=== PATIENT | male | born 1935 | race Caucasian/White ===

== ENCOUNTER 2017-05-04 17:10 | Observation (INO) | payer MEDICAID, MEDICARE ==
--- NOTE | 2017-05-04 18:13 | EDM.PDOC ---
ED HPI GENERAL MEDICAL PROBLEM - General Chief Complaint: General Stated Complaint: WEAK Time Seen by Provider: 05/04/17 18:12 Source of Information: Reports: Patient History Limitations: Reports: No Limitations - History of Present Illness INITIAL COMMENTS - FREE TEXT/NARRATIVE: This gentleman comes in complaining of weakness. He said when he sits in a chair he can't get out of the chair. It's been going on for 2 or 3 days. He denies any nausea vomiting or diarrhea. There is no fever. No chest pain shortness of breath or cough. He said he thinks he drinks enough liquids. 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 He started atorvastatin at the same time. His doctors at the [facility] in [place]. - Related Data Allergies Allergy/AdvReac Type Severity Reaction Status Date / Time codeine Allergy Anxiety Verified 05/04/17 17:39 Home Meds: Home Meds Aspirin 325 mg PO DAILY 05/04/17 [History] Carvedilol [Coreg] 6.25 mg PO BID 05/04/17 [History] Cholecalciferol (Vitamin D3) [Vitamin D3] 1,000 units PO DAILY 05/04/17 [History ] Docusate Sodium 200 mg PO BID 05/04/17 [History] Lisinopril 10 mg PO DAILY 05/04/17 [History] Multivitamin [Multivitamins] 1 mg PO DAILY 05/04/17 [History] [place]-3/DHA/Epa/Fish Oil [[place] 3 500 Softgel] 1,000 mg PO BID 05/04/17 [History ] Pramoxine HCl/Menthol [[place] Med Anti-Itch] 2 gm TOP ASDIRECTED PRN [History] Triamcinolone Acetonide [Triamcinolone Acetonide 0.1% Crm] 15 gm TOP TID [History] atorvaSTATin Calcium [Atorvastatin Calcium] 5 mg PO DAILY 05/04/17 [History] diphenhydrAMINE HCl [Benadryl] 25 - 50 mg PO BEDTIME 05/04/17 [History] glipiZIDE [Glucotrol] 5 mg PO BID 05/04/17 [History] metFORMIN [Glucophage] 1,000 mg PO BID 05/04/17 [History] predniSONE [Prednisone] 20 mg PO DAILY 05/04/17 [History] Past Medical History HEENT History: Reports: Hard of Hearing, Impaired Vision Musculoskeletal History: Reports: Back Pain, Chronic Endocrine/Metabolic History: Reports: Diabetes, Type II Dermatologic History: Reports: Other (See Below) Other Dermatologic History: bullosis - Infectious Disease History Infectious Disease History: Reports: Chicken Pox - Past Surgical History GI Surgical History: Reports: Cholecystectomy Musculoskeletal Surgical History: Reports: Knee Replacement, Shoulder Surgery Social & Family History - Tobacco Use Smoking Status *Q: Never Smoker ED ROS GENERAL - Review of Systems Review Of Systems: ROS reveals no pertinent complaints other than HPI. ED EXAM, GENERAL - Physical Exam Exam: See Below Exam Limited By: No Limitations General Appearance: Alert, WD/WN, No Apparent Distress Eye Exam: Bilateral Eye: Normal Inspection Ears: Normal External Exam Nose: Normal Inspection Throat/Mouth: Other (Mucous membranes slightly dry) Head: Atraumatic Neck: Normal Inspection Respiratory/Chest: Lungs Clear Cardiovascular: Regular Rate, Rhythm, No Murmur GI/Abdominal: Soft, Non-Tender Extremities: Normal Inspection Neurological: Alert, Oriented, CN II-XII Intact, No Motor/Sensory Deficits Psychiatric: Normal Affect Skin Exam: Other (There there are a number of ruptured bullae to the back and upper extremities. Nothing looks infected) Course - Vital Signs Last Recorded V/S: Last Vital Signs Temp 36.3 C 05/04/17 17:37 Pulse 70 05/04/17 20:02 Resp 16 05/04/17 20:02 BP 134/69 05/04/17 20:02 Pulse Ox 98 05/04/17 20:02 - Orders/Labs/Meds Orders: Active Orders 24 hr Category Date Time Status EKG Documentation Completion [RC] ASDIRECTED Care 05/04/17 18:27 Active Chest 2V [CR] Urgent Exams 05/04/17 18:25 Taken Sodium Chloride 0.9% [Normal Saline] 1,000 ml Med 05/04/17 18:30 Active IV ASDIRECTED Sodium Chloride 0.9% [Saline Flush] Med 05/04/17 18:26 Active 10 ml FLUSH ASDIRECTED PRN Saline Lock Insert [OM.PC] Urgent Oth 05/04/17 18:25 Ordered EKG 12 Lead [EK] Urgent Ther 05/04/17 18:25 Ordered Medication Orders Sodium Chloride (Normal Saline) 1,000 mls @ 999 mls/hr IV ASDIRECTED MADYSON Last Admin: 05/04/17 18:37 Dose: 999 mls/hr Sodium Chloride (Saline Flush) 10 ml FLUSH ASDIRECTED PRN PRN Reason: Keep Vein Open Last Admin: 05/04/17 18:37 Dose: 10 ml Labs: Laboratory Tests 05/04/17 05/04/17 05/04/17 Range/Units 18:38 18:38 20:02 WBC 7.4 (4.5-11.0) K/uL RBC 4.84 (4.30-5.90) M/uL Hgb 14.2 (12.0-15.0) g/dL Hct 43.1 (40.0-54.0) % MCV 89 (80-98) fL MCH 29 (27-31) pg MCHC 33 (32-36) % Plt Count 325 (150-400) K/uL Neut % (Auto) 68 H (36-66) % Lymph % (Auto) 15 L (24-44) % [place] % (Auto) 16 H (2-6) % Eos % (Auto) 1 L (2-4) % Baso % (Auto) 0 (0-1) % Sodium 135 L (140-148) mmol/L Potassium 7.5 H* (3.6-5.2) mmol/L Chloride 106 (100-108) mmol/L Carbon Dioxide 24 (21-32) mmol/L Anion Gap 12.5 (5.0-14.0) mmol/L BUN 40 H (7-18) mg/dL Creatinine 1.7 H (0.8-1.3) mg/dL Est Cr Clr Drug Dosing 37.21 mL/min Estimated GFR (MDRD) 39 L (>60) Glucose 168 H (74-106) mg/dL Calcium 8.9 (8.5-10.1) mg/dL Total Bilirubin 0.2 (0.2-1.0) mg/dL AST 22 (15-37) U/L ALT 34 (12-78) U/L Alkaline Phosphatase 57 (46-116) U/L Troponin I < 0.017 (0.000-0.056) ng/mL Total Protein 7.2 (6.4-8.2) g/dL Albumin 3.4 (3.4-5.0) g/dL Globulin 3.8 H (2.3-3.5) g/dL Albumin/Globulin Ratio 0.9 L (1.2-2.2) Urine Color Yellow Urine Appearance Clear Urine pH 6.0 (4.5-8.0) Ur Specific [place] 1.015 (1.008-1.030) Urine Protein Negative (NEGATIVE) mg/dL Urine Glucose (UA) 100 H (NEGATIVE) mg/dL Urine Ketones Negative (NEGATIVE) mg/dL Urine Occult Blood Large (NEGATIVE) Urine Nitrite Negative (NEGAITVE) Urine Bilirubin Negative (NEGATIVE) Urine Urobilinogen Normal (NORMAL) mg/dL Ur Leukocyte Esterase Negative (NEGATIVE) Urine RBC 50-75 H (0-5) Urine WBC 0-5 (0-5) Ur Epithelial Cells Few Amorphous Sediment Not seen Urine Bacteria Few Urine Mucus Not seen Meds: Medications Generic Name Dose Route Start Last Admin Trade Name Freq PRN Reason Stop Dose Admin Sodium Chloride 1,000 mls @ 999 mls/hr 05/04/17 18:30 05/04/17 18:37 Normal Saline IV 999 mls/hr ASDIRECTED MADYSON Administration Sodium Chloride 10 ml 05/04/17 18:26 05/04/17 18:37 Saline Flush FLUSH 10 ml ASDIRECTED PRN Administration Keep Vein Open - Radiology Interpretation Free Text/Narrative:: Chest x-ray showed normal heart size normal lung markings. - Re-Assessments/Exams Free Text/Narrative Re-Assessment/Exam: 05/04/17 20:36 EKG shows normal sinus rhythm at 68 bpm normal QRS is normal ST and T waves. No QRS widening 05/04/17 20:38 treatment course an IV was established he was given a bolus of 1 L IV normal saline. Labs returned showing a elevated BUN/creatinine ratio and a potassium of 7.5. Dr. Vargas was consult and will be admitting him for further treatment. Departure - Departure Time of Disposition: 20:39 Disposition: Admitted As Inpatient 64 Clinical Impression: Hyperkalemia, Dehydration - Discharge Information Forms: ED Department Discharge - My Orders Last 24 Hours: My Active Orders 05/04/17 18:25 Chest 2V [CR] Urgent Saline Lock Insert [OM.PC] Urgent EKG 12 Lead [EK] Urgent 05/04/17 18:26 Sodium Chloride 0.9% [Saline Flush] 10 ml FLUSH ASDIRECTED PRN 05/04/17 18:27 EKG Documentation Completion [RC] ASDIRECTED 05/04/17 18:30 Sodium Chloride 0.9% [Normal Saline] 1,000 ml IV ASDIRECTED - Assessment/Plan Last 24 Hours: My Active Orders 05/04/17 18:25 Chest 2V [CR] Urgent Saline Lock Insert [OM.PC] Urgent EKG 12 Lead [EK] Urgent 05/04/17 18:26 Sodium Chloride 0.9% [Saline Flush] 10 ml FLUSH ASDIRECTED PRN 05/04/17 18:27 EKG Documentation Completion [RC] ASDIRECTED 05/04/17 18:30 Sodium Chloride 0.9% [Normal Saline] 1,000 ml IV ASDIRECTED
[2017-05-04] MEDS ORDERED: Sodium Chloride 0.9% 10 ML Syringe FLUSH PRN (18:26)
[2017-05-04] MEDS ORDERED: Sodium Chloride 0.9% 1,000 ML IV SCH (18:30)
--- NOTE | 2017-05-04 21:10 | PCM.HP ---
H&P History of Present Illness - General Date of Service: 05/04/17 Admit Problem/Dx: Admission Diagnosis/Problem Admission Diagnosis/Problem Hyperkalemia Source of Information: Patient, Provider History Limitations: Reports: No Limitations - History of Present Illness Initial Comments - Free Text/Narative: Catracho presents to the emergency room today with weakness. He describes this as the inability to get up out of the chair without great difficulty. He felt weak and a little tired yesterday but felt fairly well this morning before weakness progressed slowly throughout the day. He reports that he finished a ten-day course of antibiotics with trimethoprim/sulfamethoxazole yesterday. He was on this for a presumed skin infection. He has not had any fevers. He does not report cough, shortness of breath or diarrhea. His appetite has been normal. He has not been around anybody who is been sick. The bullous lesions on his skin have been improving with his prednisone therapy. Workup in the emergency room today revealed hyperkalemia with a potassium of 7.5 and a creatinine of 1.7, up from his baseline of 1.2. He'll be admitted for additional hydration and repeat laboratory testing. - Related Data Allergies/Adverse Reactions: Allergies Allergy/AdvReac Type Severity Reaction Status Date / Time codeine Allergy Anxiety Verified 05/04/17 17:39 Home Medications: Home Meds Aspirin 325 mg PO DAILY 05/04/17 [History] Carvedilol [Coreg] 6.25 mg PO BID 05/04/17 [History] Cholecalciferol (Vitamin D3) [Vitamin D3] 1,000 units PO DAILY 05/04/17 [History ] Docusate Sodium 200 mg PO BID 05/04/17 [History] Lisinopril 10 mg PO DAILY 05/04/17 [History] Multivitamin [Multivitamins] 1 mg PO DAILY 05/04/17 [History] [place]-3/DHA/Epa/Fish Oil [[place] 3 500 Softgel] 1,000 mg PO BID 05/04/17 [History ] Pramoxine HCl/Menthol [[place] Med Anti-Itch] 2 gm TOP ASDIRECTED PRN [History] Triamcinolone Acetonide [Triamcinolone Acetonide 0.1% Crm] 15 gm TOP TID [History] atorvaSTATin Calcium [Atorvastatin Calcium] 5 mg PO DAILY 05/04/17 [History] diphenhydrAMINE HCl [Benadryl] 25 - 50 mg PO BEDTIME 05/04/17 [History] glipiZIDE [Glucotrol] 5 mg PO BID 05/04/17 [History] metFORMIN [Glucophage] 1,000 mg PO BID 05/04/17 [History] predniSONE [Prednisone] 20 mg PO DAILY 05/04/17 [History] Past Medical History HEENT History: Reports: Hard of Hearing, Impaired Vision Musculoskeletal History: Reports: Back Pain, Chronic Endocrine/Metabolic History: Reports: Diabetes, Type II Dermatologic History: Reports: Other (See Below) Other Dermatologic History: bullosis - Infectious Disease History Infectious Disease History: Reports: Chicken Pox - Past Surgical History GI Surgical History: Reports: Cholecystectomy Musculoskeletal Surgical History: Reports: Knee Replacement, Shoulder Surgery Social & Family History - Family History Neurological: Reports: CVA (Father) - Tobacco Use Smoking Status *Q: Never Smoker - Alcohol Use Alcohol Use History: No - Recreational Drug Use Recreational Drug Use: No H&P Review of Systems - Review of Systems: Review Of Systems: See Below Free Text/Narrative: A complete 12 point review of systems was obtained. Pertinent positives and negatives are noted in the history of present illness. All other systems were reviewed and were negative except as noted. Exam - Exam Exam: See Below - Vital Signs Vital Signs: Last Vital Signs Temp 36.3 C 05/04/17 17:37 Pulse 70 05/04/17 20:02 Resp 16 05/04/17 20:02 BP 134/69 05/04/17 20:02 Pulse Ox 98 05/04/17 20:02 Weight: 105.687 kg - Exam Quality Assessment: No: Supplemental Oxygen General: Alert, Oriented, Cooperative. No: Mild Distress HEENT: Conjunctiva Clear, Mucosa Moist & [place]. No: Scleral Icterus Neck: Supple, Trachea Midline. No: Lymphadenopathy, Thyromegaly Lungs: Clear to Auscultation, Normal Respiratory Effort Cardiovascular: Regular Rate, Regular Rhythm, Systolic Murmur Abdomen: Normal Bowel Sounds, Soft. No: Distention, Tenderness Back Exam: Normal Inspection, Full Range of Motion Extremities: Normal Pulses, Edema (Trace bilateral ankle edema) Skin: Warm, Dry, Rash Neuro Extensive - Mental Status: Alert, Oriented x3, Nl Response to Commands Neuro Extensive - Motor, Sensory, Reflexes: CN II-XII Intact. No: Dysarthria, Abnormal Motor, Tremor Psychiatric: Alert, Normal Affect - Patient Data Lab Results Last 24 hrs: Laboratory Results - last 24 hr 05/04/17 05/04/17 05/04/17 Range/Units 18:38 18:38 20:02 WBC 7.4 (4.5-11.0) K/uL RBC 4.84 (4.30-5.90) M/uL Hgb 14.2 (12.0-15.0) g/dL Hct 43.1 (40.0-54.0) % MCV 89 (80-98) fL MCH 29 (27-31) pg MCHC 33 (32-36) % Plt Count 325 (150-400) K/uL Neut % (Auto) 68 H (36-66) % Lymph % (Auto) 15 L (24-44) % [place] % (Auto) 16 H (2-6) % Eos % (Auto) 1 L (2-4) % Baso % (Auto) 0 (0-1) % Sodium 135 L (140-148) mmol/L Potassium 7.5 H* (3.6-5.2) mmol/L Chloride 106 (100-108) mmol/L Carbon Dioxide 24 (21-32) mmol/L Anion Gap 12.5 (5.0-14.0) mmol/L BUN 40 H (7-18) mg/dL Creatinine 1.7 H (0.8-1.3) mg/dL Est Cr Clr Drug Dosing 37.21 mL/min Estimated GFR (MDRD) 39 L (>60) Glucose 168 H (74-106) mg/dL Calcium 8.9 (8.5-10.1) mg/dL Total Bilirubin 0.2 (0.2-1.0) mg/dL AST 22 (15-37) U/L ALT 34 (12-78) U/L Alkaline Phosphatase 57 (46-116) U/L Troponin I < 0.017 (0.000-0.056) ng/mL Total Protein 7.2 (6.4-8.2) g/dL Albumin 3.4 (3.4-5.0) g/dL Globulin 3.8 H (2.3-3.5) g/dL Albumin/Globulin Ratio 0.9 L (1.2-2.2) Urine Color Yellow Urine Appearance Clear Urine pH 6.0 (4.5-8.0) Ur Specific [place] 1.015 (1.008-1.030) Urine Protein Negative (NEGATIVE) mg/dL Urine Glucose (UA) 100 H (NEGATIVE) mg/dL Urine Ketones Negative (NEGATIVE) mg/dL Urine Occult Blood Large (NEGATIVE) Urine Nitrite Negative (NEGAITVE) Urine Bilirubin Negative (NEGATIVE) Urine Urobilinogen Normal (NORMAL) mg/dL Ur Leukocyte Esterase Negative (NEGATIVE) Urine RBC 50-75 H (0-5) Urine WBC 0-5 (0-5) Ur Epithelial Cells Few Amorphous Sediment Not seen Urine Bacteria Few Urine Mucus Not seen Result Diagrams: 05/04/17 18:38 05/04/17 18:38 Imaging Impressions Last 24 hrs: Chest x-ray - images personally reviewed - chest is clear with no evidence for mass, infiltrate, effusion. Heart size is normal. EKG INTERPRETATION EKG Date: 05/04/17 Rhythm: NSR [place]: Normal P-Wave: Present QRS: Normal ST-T: Normal QT: Normal EKG Interpretation Comments: No peaked T waves to suggest hyperkalemia *Q Meaningful Use (ADM) - VTE *Q VTE Criteria *Q: - VTE Risk Assess *Q Each Risk Factor Represents 1 Point: Swollen Legs, Current, Obesity (BMI greater than 30) Total Score 1 Point Risk Factors: 2 Each Risk Factor Represents 2 Points: None Total Score 2 Point Risk Factors: 0 Each Risk Factor Represents 3 Points: Age 75 Years or Greater Total Score 3 Point Risk Factors: 3 Each Risk Factor Represents 5 Points: None Total Score 5 Point Risk Factors: 0 Venous Thromboembolism Risk Factor Score *Q: 5 - Stroke *Q Stroke Criteria *Q: - AMI *Q AMI Criteria *Q: - Problem List (1) Hyperkalemia SNOMED Code(s): 86482159 ICD Code: E87.5 - HYPERKALEMIA Status: Acute Current Visit: Yes (2) Interstitial nephritis, acute SNOMED Code(s): 46648692 ICD Code: N10 - ACUTE PYELONEPHRITIS Status: Suspected Current Visit: Yes Problem Details: Interstitial nephritis secondary to sulfa antibiotic (3) Stage III chronic kidney disease SNOMED Code(s): 659997614 ICD Code: N18.3 - CHRONIC KIDNEY DISEASE, STAGE 3 (MODERATE) Status: Chronic Current Visit: Yes (4) Diabetes mellitus type 2 with complications SNOMED Code(s): 52077908, 23076913016749 ICD Code: E11.8 - TYPE 2 DIABETES MELLITUS WITH UNSPECIFIED COMPLICATIONS Status: Chronic Current Visit: Yes Qualifiers: 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 mellitus 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 insulin use: without fci use Qualified Code(s): E11.8 - Type 2 diabetes mellitus with unspecified complications Problem List Initiated/Reviewed/Updated: Yes Orders Last 24hrs: Active Orders 24 hr Category Date Time Status Patient Status Manage Transfer [TRANSFER] Routine ADT 05/04/17 20:59 Ordered EKG Documentation Completion [RC] ASDIRECTED Care 05/04/17 18:27 Active Chest 2V [CR] Urgent Exams 05/04/17 18:25 Taken Sodium Chloride 0.9% [Normal Saline] 1,000 ml Med 05/04/17 18:30 Active IV ASDIRECTED Sodium Chloride 0.9% [Normal Saline] 1,000 ml Med 05/04/17 21:00 Ordered IV ASDIRECTED Sodium Chloride 0.9% [Saline Flush] Med 05/04/17 18:26 Active 10 ml FLUSH ASDIRECTED PRN Saline Lock Insert [OM.PC] Urgent Oth 05/04/17 18:25 Ordered Resuscitation Status Routine Resus Stat 05/04/17 21:01 Ordered EKG 12 Lead [EK] Urgent Ther 05/04/17 18:25 Ordered Medication Orders Sodium Chloride (Normal Saline) 1,000 mls @ 999 mls/hr IV ASDIRECTED MADYSON Last Admin: 05/04/17 18:37 Dose: 999 mls/hr Sodium Chloride (Normal Saline) 1,000 mls @ 125 mls/hr IV ASDIRECTED MADYSON Sodium Chloride (Saline Flush) 10 ml FLUSH ASDIRECTED PRN PRN Reason: Keep Vein Open Last Admin: 05/04/17 18:37 Dose: 10 ml Assessment/Plan Comment:: Assessment and plan - Hyperkalemia and renal insufficiency - suspect interstitial nephritis with recent sulfa antibiotic use. Significant elevation of potassium at 7.5 with mild increase in creatinine from baseline of 1.2. No EKG changes. He is hemodynamically stable. He is on an GEORGE inhibitor. -IV fluids -Furosemide 1 this evening -Hold GEORGE inhibitor -Telemetry -He has completed his course of antibiotics and they will not be restarted -Repeat labs in the morning Diabetes mellitus type 2 - on two oral medications. Both of these will be held because of his creatinine greater than 1.5. -Hold oral medications, repeat labs in the morning Bullous skin lesions - on prednisone and was recently on antibiotics. Seem to be healing. -Continue prednisone Maintenance issues - - DVT prophylaxis - antiembolic stockings - GI prophylaxis - not indicated - Nutrition - diabetic diet - Croft catheter - not indicated CODE STATUS - DNR/DNI Admission justification - patient will be referred to observation status for hydration and repeat laboratory testing Disposition - anticipate discharge to home tomorrow Primary care physician - Dr. Rex Amaya [place] Win Vargas M.D.
[2017-05-04] MEDS: Sodium Chloride 0.9% 1,000 ML IV SCH ×2 (21:32→22:18)
[2017-05-04] MEDS ORDERED: Acetaminophen 325 MG Tab PO PRN (21:52)
[2017-05-04] MEDS ORDERED: Ondansetron 4 MG Tab.DIS PO PRN (21:52)
[2017-05-04] MEDS ORDERED: Carvedilol 12.5 MG Tab PO SCH (21:52)
[2017-05-04] MEDS ORDERED: Furosemide 40 MG/4 ML VIAL IVPUSH ONE (21:52)
[2017-05-04] MEDS ORDERED: diphenhydrAMINE 25 MG Cap PO PRN (22:41)
[2017-05-05] MEDS: Sodium Chloride 0.9% 1,000 ML IV SCH ×3 (05:26→21:22)
[2017-05-05] MEDS ORDERED: Carvedilol 12.5 MG Tab PO SCH (08:00)
[2017-05-05] MEDS: Carvedilol 6.25 MG Tab PO SCH ×2 (08:25→16:44)
[2017-05-05] MEDS: predniSONE 20 MG Tab PO SCH (08:26)
[2017-05-05] MEDS: Aspirin 325 MG Tab.EC PO SCH (08:26)
[2017-05-05] MEDS ORDERED: Sodium Polystyrene Sulfonate 15 GM/60 ML Susp 60 ML Bot PO ONE ×2 (09:00→16:00)
[2017-05-05] MEDS ORDERED: Glucose Gel 15 GM in 37.5 GM Tube PO PRN (09:22)
[2017-05-05] MEDS ORDERED: 50% Dextrose in Water 50 ML Syringe IV PRN (09:22)
[2017-05-05] MEDS: Insulin Aspart 100 Units/ML 3 ML Pen SUBCUT SCH ×3 (12:22→21:43)
--- NOTE | 2017-05-05 13:21 | CR ---
Chest 2V INDICATION: pain FINDINGS: Bilateral calcified pleural plaques. Heart size at the upper limits of normal. No focal co nsolidation. Hypertrophic changes thoracic spine.
[2017-05-05] MEDS ORDERED: Furosemide 40 MG/4 ML VIAL IVPUSH ONE (16:00)
--- NOTE | 2017-05-05 18:01 | PCM.PN ---
- General Info Date of Service: 05/05/17 Functional Status: Reports: pain controlled, tolerating diet, ambulating, urinating - Review of Systems General: Denies: Fever, Weakness, Chills Pulmonary: Reports: no symptoms Cardiovascular: Reports: No Symptoms Gastrointestinal: Reports: No symptoms Neurological: Reports: No Symptoms Systems Review Comment:: This patient is an 81-year-old gentleman who was admitted through the emergency department with acute on chronic renal insufficiency as well as hyperkalemia. Initial potassium level was found to be high at 7.5, no significant abnormalities identified on EKG. He was admitted to the hospital and given IV fluids for hydration as well as IV furosemide. This morning his potassium was down to 6.0 and he was feeling significantly improved, with marked resolution of his fatigue and weakness. Because of persistent elevation of potassium he was given 30 g of Kayexalate this morning, this afternoon potassium level was repeated and had gone up to 6.4. - Patient Data Vitals - most recent: Last Vital Signs Temp 97.4 F 05/05/17 15:25 Pulse 81 05/05/17 16:44 Resp 16 05/05/17 15:25 BP 157/74 H 05/05/17 16:44 Pulse Ox 97 05/05/17 15:25 Weight - most recent: 217 lb 9.54 oz I&O - last 24 hours: Intake & Output 05/05/17 05/05/17 05/05/17 06:59 14:59 22:59 Intake Total 1415 2332 Output Total 1800 600 Balance -0558 609 3228 Lab Results last 24 hrs: Laboratory Results - last 24 hr 05/05/17 05/05/17 Range/Units 05:46 15:06 Sodium 137 L 134 L (140-148) mmol/L Potassium 6.0 H 6.4 H* (3.6-5.2) mmol/L Chloride 109 H 106 (100-108) mmol/L Carbon Dioxide 23 24 (21-32) mmol/L Anion Gap 11.0 10.4 (5.0-14.0) mmol/L BUN 33 H 28 H (7-18) mg/dL Creatinine 1.4 H 1.4 H (0.8-1.3) mg/dL Est Cr Clr Drug Dosing 45.44 45.48 mL/min Estimated GFR (MDRD) 48 L 48 L (>60) Glucose 158 H 294 H (74-106) mg/dL Calcium 8.6 8.3 L (8.5-10.1) mg/dL Med Orders - Current: Current Medications Acetaminophen (Tylenol) 650 mg PO Q4H PRN PRN Reason: Pain (Mild 1-3)/fever Aspirin (Ecotrin) 325 mg PO DAILY [facility] Last Admin: 05/05/17 08:26 Dose: 325 mg Carvedilol (Coreg) 6.25 mg PO BIDMEALS [facility] Last Admin: 05/05/17 16:44 Dose: 6.25 mg Dextrose (Glutose 15) 15 gm PO ONETIME PRN PRN Reason: Hypoglycemia Dextrose/Water (Dextrose 50% In Water) 50 ml IV ONETIME PRN PRN Reason: Hypoglycemia Diphenhydramine HCl (Benadryl) 25 - 50 mg PO Q4H PRN PRN Reason: Itching Sodium Chloride (Normal Saline) 1,000 mls @ 125 mls/hr IV ASDIRECTED [facility] Last Admin: 05/05/17 13:33 Dose: 125 mls/hr Insulin Aspart (Novolog) 0 unit SUBCUT ASDIRECTED [facility] PRN Reason: Protocol Last Admin: 05/05/17 16:46 Dose: 2 units Ondansetron HCl (Zofran Odt) 4 mg PO Q6H PRN PRN Reason: Nausea able to take PO Prednisone (Prednisone) 20 mg PO DAILY [facility] Last Admin: 05/05/17 08:26 Dose: 20 mg Sodium Chloride (Saline Flush) 10 ml FLUSH ASDIRECTED PRN PRN Reason: Keep Vein Open Last Admin: 05/04/17 18:37 Dose: 10 ml Discontinued Medications Carvedilol (Coreg) 6.25 mg PO BID [facility] Last Admin: 05/04/17 22:26 Dose: 6.25 mg Carvedilol (Coreg) 6.25 mg PO BIDMEALS [facility] Furosemide (Lasix) 40 mg IVPUSH ONETIME ONE Stop: 05/04/17 21:53 Last Admin: 05/04/17 22:25 Dose: 40 mg Furosemide (Lasix) 40 mg IVPUSH ONETIME ONE Stop: 05/05/17 16:01 Last Admin: 05/05/17 16:43 Dose: 40 mg Sodium Chloride (Normal Saline) 1,000 mls @ 999 mls/hr IV ASDIRECTED [facility] Last Admin: 05/04/17 18:37 Dose: 999 mls/hr Sodium Polystyrene Sulfonate (Kayexalate) 30 gm PO ONETIME ONE Stop: 05/05/17 09:01 Last Admin: 05/05/17 08:26 Dose: 30 gm Sodium Polystyrene Sulfonate (Kayexalate) 30 gm PO ONETIME ONE Stop: 05/05/17 16:01 Last Admin: 05/05/17 16:39 Dose: 30 gm - Exam Quality Assessment: DVT prophylaxis General: alert, oriented, cooperative, no acute distress Lungs: Clear to auscultation, Normal respiratory effort Cardiovascular: Regular Rate, Regular Rhythm, No Murmurs Abdomen: bowel sounds present, soft, no tenderness, no distension Extremities: no edema Skin: warm, dry, intact - Problem List Review Problem List Initiated/Reviewed/Updated: Yes - My Orders Last 24 Hours: My Active Orders 05/05/17 09:22 Blood Glucose Check, Bedside [RC] QIDACANDBED Communication Order [RC] ASDIRECTED Diabetes Education [RC] Click to Edit Notify Provider [RC] PRN Dextrose 50% in Water 50 ml IV ONETIME PRN Dextrose [Glutose 15] 15 gm PO ONETIME PRN 05/05/17 09:30 Insulin Aspart [NovoLOG] See Protocol SUBCUT ASDIRECTED 05/05/17 21:00 GLUCOSE POC LAB TO COLLECT [POC] QIDACANDBED POTASSIUM,K [CHEM] Urgent 05/06/17 05:00 BASIC METABOLIC PANEL,BMP [CHEM] Timed 05/06/17 07:30 GLUCOSE POC LAB TO COLLECT [POC] QIDACANDBED 05/06/17 11:30 GLUCOSE POC LAB TO COLLECT [POC] QIDACANDBED 05/06/17 16:30 GLUCOSE POC LAB TO COLLECT [POC] QIDACANDBED 05/06/17 21:00 GLUCOSE POC LAB TO COLLECT [POC] QIDACANDBED 05/07/17 07:30 GLUCOSE POC LAB TO COLLECT [POC] QIDACANDBED 05/07/17 11:30 GLUCOSE POC LAB TO COLLECT [POC] QIDACANDBED 05/07/17 16:30 GLUCOSE POC LAB TO COLLECT [POC] QIDACANDBED 05/07/17 21:00 GLUCOSE POC LAB TO COLLECT [POC] QIDACANDBED 05/08/17 07:30 GLUCOSE POC LAB TO COLLECT [POC] QIDACANDBED 05/08/17 11:30 GLUCOSE POC LAB TO COLLECT [POC] QIDACANDBED 05/08/17 16:30 GLUCOSE POC LAB TO COLLECT [POC] QIDACANDBED 05/08/17 21:00 GLUCOSE POC LAB TO COLLECT [POC] QIDACANDBED 05/09/17 07:30 GLUCOSE POC LAB TO COLLECT [POC] QIDACANDBED 05/09/17 11:30 GLUCOSE POC LAB TO COLLECT [POC] QIDACANDBED 05/09/17 16:30 GLUCOSE POC LAB TO COLLECT [POC] QIDACANDBED 05/09/17 21:00 GLUCOSE POC LAB TO COLLECT [POC] QIDACANDBED 05/10/17 07:30 GLUCOSE POC LAB TO COLLECT [POC] QIDACANDBED 05/10/17 11:30 GLUCOSE POC LAB TO COLLECT [POC] QIDACANDBED 05/10/17 16:30 GLUCOSE POC LAB TO COLLECT [POC] QIDACANDBED 05/10/17 21:00 GLUCOSE POC LAB TO COLLECT [POC] QIDACANDBED 05/11/17 07:30 GLUCOSE POC LAB TO COLLECT [POC] QIDACANDBED 05/11/17 11:30 GLUCOSE POC LAB TO COLLECT [POC] QIDACANDBED 05/11/17 16:30 GLUCOSE POC LAB TO COLLECT [POC] QIDACANDBED 05/11/17 21:00 GLUCOSE POC LAB TO COLLECT [POC] QIDACANDBED 05/12/17 07:30 GLUCOSE POC LAB TO COLLECT [POC] QIDACANDBED 05/12/17 11:30 GLUCOSE POC LAB TO COLLECT [POC] QIDACANDBED 05/12/17 16:30 GLUCOSE POC LAB TO COLLECT [POC] QIDACANDBED 05/12/17 21:00 GLUCOSE POC LAB TO COLLECT [POC] QIDACANDBED 05/13/17 07:30 GLUCOSE POC LAB TO COLLECT [POC] QIDACANDBED 05/13/17 11:30 GLUCOSE POC LAB TO COLLECT [POC] QIDACANDBED 05/13/17 16:30 GLUCOSE POC LAB TO COLLECT [POC] QIDACANDBED 05/13/17 21:00 GLUCOSE POC LAB TO COLLECT [POC] QIDACANDBED 05/14/17 07:30 GLUCOSE POC LAB TO COLLECT [POC] QIDACANDBED 05/14/17 11:30 GLUCOSE POC LAB TO COLLECT [POC] QIDACANDBED 05/14/17 16:30 GLUCOSE POC LAB TO COLLECT [POC] QIDACANDBED 05/14/17 21:00 GLUCOSE POC LAB TO COLLECT [POC] QIDACANDBED 05/15/17 07:30 GLUCOSE POC LAB TO COLLECT [POC] QIDACANDBED 05/15/17 11:30 GLUCOSE POC LAB TO COLLECT [POC] QIDACANDBED 05/15/17 16:30 GLUCOSE POC LAB TO COLLECT [POC] QIDACANDBED 05/15/17 21:00 GLUCOSE POC LAB TO COLLECT [POC] QIDACANDBED 05/16/17 07:30 GLUCOSE POC LAB TO COLLECT [POC] QIDACANDBED - Plan Plan:: Assessment and plan - Hyperkalemia and renal insufficiency - suspect interstitial nephritis with recent sulfa antibiotic use. Renal function has improved with hydration, not yet back to baseline. Potassium level remains elevated and has gone up during the day today despite a dose of Kayexalate this morning. -Kayexalate 30 g by mouth now -Repeat potassium level later tonight -IV fluids -Furosemide 1 now -Hold GEORGE inhibitor -Telemetry -Repeat labs in the morning Diabetes mellitus type 2 - on two oral medications. Both of these will be held because of his creatinine greater than 1.5. -Continue to Hold oral medications, repeat labs in the morning -Low-dose sliding scale NovoLog -4 times a day glucometers Bullous skin lesions - on prednisone and was recently on antibiotics. Seem to be healing. -Continue prednisone Maintenance issues - - DVT prophylaxis - antiembolic stockings - GI prophylaxis - not indicated - Nutrition - diabetic diet - Croft catheter - not indicated CODE STATUS - DNR/DNI Admission justification - patient will be referred to observation status for hydration and repeat laboratory testing Disposition - anticipate discharge to home tomorrow Primary care physician - Dr. Rex Amaya [place]
[2017-05-06] MEDS: Sodium Chloride 0.9% 1,000 ML IV SCH (04:39)
[2017-05-06] MEDS: Carvedilol 6.25 MG Tab PO SCH (08:14)
[2017-05-06] MEDS: predniSONE 20 MG Tab PO SCH (08:14)
[2017-05-06] MEDS: Aspirin 325 MG Tab.EC PO SCH (08:14)
[2017-05-06] MEDS: Insulin Aspart 100 Units/ML 3 ML Pen SUBCUT SCH ×2 (08:14→12:06)
[2017-05-06 11:23] VITALS: BP 144/71
--- NOTE | 2017-05-06 11:43 | PCM.DCSUM1 ---
Discharge Summary - Hospital Course Brief History: This patient is an 81-year-old gentleman who was admitted through the emergency department with severe weakness secondary to hyperkalemia and acute kidney injury. - Discharge Data Discharge Date: 05/06/17 Discharge Disposition: Home, Self-Care 01 Condition: Good - Discharge Diagnosis/Problem(s) (1) Hyperkalemia SNOMED Code(s): 84737155 ICD Code: E87.5 - HYPERKALEMIA Status: Acute Current Visit: Yes (2) Dehydration SNOMED Code(s): 70637108 ICD Code: E86.0 - DEHYDRATION Status: Acute Current Visit: Yes (3) Interstitial nephritis, acute SNOMED Code(s): 54335144 ICD Code: N10 - ACUTE PYELONEPHRITIS Status: Suspected Current Visit: Yes Problem Details: Interstitial nephritis secondary to sulfa antibiotic (4) Stage III chronic kidney disease SNOMED Code(s): 058704423 ICD Code: N18.3 - CHRONIC KIDNEY DISEASE, STAGE 3 (MODERATE) Status: Chronic Current Visit: Yes (5) Diabetes mellitus type 2 with complications SNOMED Code(s): 39872731, 10936862078707 ICD Code: E11.8 - TYPE 2 DIABETES MELLITUS WITH UNSPECIFIED COMPLICATIONS Status: Chronic Current Visit: Yes Qualifiers: Diabetes mellitus half-way insulin use: without 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 Was placed on prednisone as well as Septra DS for management of the skin lesions and underlying infection. Skin lesions did seem to be clearing and healing with no evidence of ongoing infection. On the day of admission developed progressive and severe weakness to the point where he was unable to get out of his chair. On evaluation in the emergency department was found to have significant elevation in potassium at 7.5 as well as elevation in his creatinine from baseline thought to be secondary to interstitial nephritis from the antibiotic. He was admitted to the hospital and given IV fluids for hydration as well as IV Lasix for management of hyperkalemia. EKG in the emergency department showed no evidence of EKG abnormalities associated with the hyperkalemia. By the following morning his kidney function had improved, urine output was adequate, and potassium had improved to 6.0. Because of persistent elevation in potassium he was given a dose of Kayexalate 30 g by mouth. Recheck potassium in the late afternoon showed increase to 6.4 and he was given a second dose of Kayexalate 30 g by mouth. Potassium was again repeated in the evening and showed the potassium had normalized and by the following morning his potassium was down to 4.1. With the decrease in potassium and improvement in his kidney function he felt significantly better and his severe weakness had essentially resolved. He was continued on prednisone during his hospital stay for his bullous skin lesions and they continued to heal over the few days of hospitalization. Activity will be as tolerated and he will resume a diabetic diet. We'll have him continue his prednisone until seen for follow-up by dermatology in approximately one week. We'll have him hold his lisinopril because of the hyperkalemia and he'll be scheduled for follow-up appointment with primary care here in the [place] area. BMP should be obtained at the time of follow-up appointment. - Patient Instructions Diet: Diabetic Diet Activity: As Tolerated Other/Special Instructions: Patient already has follow-up appointment with dermatology, pending. Schedule local follow-up appointment with primary care within 1 week. BMP should be obtained at the time of follow-up appointment. - Discharge Plan Home Medications: Home Meds Aspirin 325 mg PO DAILY 05/04/17 [History] Carvedilol [Coreg] 6.25 mg PO BID 05/04/17 [History] Cholecalciferol (Vitamin D3) [Vitamin D3] 1,000 units PO DAILY 05/04/17 [History ] Docusate Sodium 200 mg PO BID 05/04/17 [History] Multivitamin [Multivitamins] 1 mg PO DAILY 05/04/17 [History] [place]-3/DHA/Epa/Fish Oil [[place] 3 500 Softgel] 1,000 mg PO BID 05/04/17 [History ] Pramoxine HCl/Menthol [[place] Med Anti-Itch] 2 gm TOP ASDIRECTED PRN [History] Triamcinolone Acetonide [Triamcinolone Acetonide 0.1% Crm] 15 gm TOP TID [History] atorvaSTATin Calcium [Atorvastatin Calcium] 5 mg PO DAILY 05/04/17 [History] diphenhydrAMINE HCl [Benadryl] 25 - 50 mg PO BEDTIME 05/04/17 [History] glipiZIDE [Glucotrol] 5 mg PO BID 05/04/17 [History] metFORMIN [Glucophage] 1,000 mg PO BID 05/04/17 [History] Prednisone [IJD: predniSONE] 20 mg PO DAILY tablet 05/06/17 [Rx] Referrals: Vick Porter MD [Primary Care Provider] - - Patient Data Vitals - Most Recent: Last Vital Signs Temp 96.4 F 05/06/17 11:22 Pulse 74 05/06/17 11:22 Resp 16 05/06/17 11:22 BP 144/71 H 05/06/17 11:22 Pulse Ox 97 05/06/17 11:22 Weight - Most Recent: 217 lb 9.54 oz I&O - Last 24 hours: Intake & Output 05/05/17 05/06/17 05/06/17 22:59 06:59 14:59 Intake Total 3636 1104 460 Output Total 2275 300 690 Balance 1361 804 -230 Lab Results - Last 24 hrs: Laboratory Results - last 24 hr 05/05/17 05/05/17 05/06/17 Range/Units 15:06 21:20 05:00 Sodium 134 L 140 (140-148) mmol/L Potassium 6.4 H* 4.8 4.1 (3.6-5.2) mmol/L Chloride 106 109 H (100-108) mmol/L Carbon Dioxide 24 24 (21-32) mmol/L Anion Gap 10.4 11.1 (5.0-14.0) mmol/L BUN 28 H 21 H (7-18) mg/dL Creatinine 1.4 H 1.1 (0.8-1.3) mg/dL Est Cr Clr Drug Dosing 45.48 57.88 mL/min Estimated GFR (MDRD) 48 L > 60 (>60) Glucose 294 H 153 H (74-106) mg/dL Calcium 8.3 L 8.2 L (8.5-10.1) mg/dL Med Orders - Current: Current Medications Acetaminophen (Tylenol) 650 mg PO Q4H PRN PRN Reason: Pain (Mild 1-3)/fever Aspirin (Ecotrin) 325 mg PO DAILY [facility] Last Admin: 05/06/17 08:14 Dose: 325 mg Carvedilol (Coreg) 6.25 mg PO BIDMEALS [facility] Last Admin: 05/06/17 08:14 Dose: 6.25 mg Dextrose (Glutose 15) 15 gm PO ONETIME PRN PRN Reason: Hypoglycemia Dextrose/Water (Dextrose 50% In Water) 50 ml IV ONETIME PRN PRN Reason: Hypoglycemia Diphenhydramine HCl (Benadryl) 25 - 50 mg PO Q4H PRN PRN Reason: Itching Last Admin: 05/05/17 19:24 Dose: 25 mg Sodium Chloride (Normal Saline) 1,000 mls @ 125 mls/hr IV ASDIRECTED [facility] Last Admin: 05/06/17 04:39 Dose: 125 mls/hr Insulin Aspart (Novolog) 0 unit SUBCUT ASDIRECTED [facility] PRN Reason: Protocol Last Admin: 05/06/17 08:14 Dose: 1 units Ondansetron HCl (Zofran Odt) 4 mg PO Q6H PRN PRN Reason: Nausea able to take PO Prednisone (Prednisone) 20 mg PO DAILY [facility] Last Admin: 05/06/17 08:14 Dose: 20 mg Sodium Chloride (Saline Flush) 10 ml FLUSH ASDIRECTED PRN PRN Reason: Keep Vein Open Last Admin: 05/04/17 18:37 Dose: 10 ml Discontinued Medications Carvedilol (Coreg) 6.25 mg PO BID [facility] Last Admin: 05/04/17 22:26 Dose: 6.25 mg Carvedilol (Coreg) 6.25 mg PO BIDMEALS [facility] Furosemide (Lasix) 40 mg IVPUSH ONETIME ONE Stop: 05/04/17 21:53 Last Admin: 05/04/17 22:25 Dose: 40 mg Furosemide (Lasix) 40 mg IVPUSH ONETIME ONE Stop: 05/05/17 16:01 Last Admin: 05/05/17 16:43 Dose: 40 mg Sodium Chloride (Normal Saline) 1,000 mls @ 999 mls/hr IV ASDIRECTED [facility] Last Admin: 05/04/17 18:37 Dose: 999 mls/hr Sodium Polystyrene Sulfonate (Kayexalate) 30 gm PO ONETIME ONE Stop: 05/05/17 09:01 Last Admin: 05/05/17 08:26 Dose: 30 gm Sodium Polystyrene Sulfonate (Kayexalate) 30 gm PO ONETIME ONE Stop: 05/05/17 16:01 Last Admin: 05/05/17 16:39 Dose: 30 gm *Q Meaningful Use (DIS) - VTE *Q VTE Criteria *Q: - Stroke *Q Stroke Criteria *Q: - AMI *Q AMI Criteria *Q:
== END 2017-05-06 13:45 | disposition home or self-care (01) ==
LOC: JP.ED 17:10 → JP.MS 20:59
PROVIDERS: ADMIT Internal Medicine; ATTEND Hospitalist
DX: E87.5 Hyperkalemia (principal); E86.0 Dehydration; N10 Acute pyelonephritis; E11.22 Type 2 diabetes mellitus with diabetic chronic kidney disease; N18.3 Chronic kidney disease, stage 3 (moderate); Z79.82 Long term (current) use of aspirin; Z79.899 Other long term (current) drug therapy; Z79.84 Long term (current) use of oral hypoglycemic drugs; Z88.8 Allergy status to other drugs, medicaments and biological substances; Z90.49 Acquired absence of other specified parts of digestive tract; Z98.890 Other specified postprocedural states; Z96.659 Presence of unspecified artificial knee joint
CPT/HCPCS: 36415; 71020; 80048; 80053; 81001; 82962; 84132; 84484; 85025; 93005; 96361; 96374; 96376; 99285; A9270; G0378; J1940; J7040; J7050; 93010; 96360; 99217; 99219; 99225; 99284

== ENCOUNTER 2019-12-03 14:28 | Inpatient (IN) | payer MEDICARE, OTHER ==
[2019-12-03] MEDS ORDERED: methylPREDNISolone Sodium Succinate 125 MG/2 ML SDV IVPUSH ONE (14:44)
[2019-12-03] MEDS ORDERED: Sodium Chloride 0.9% 1,000 ML IV SCH (15:00)
--- NOTE | 2019-12-03 15:00 | EDM.PDOC ---
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 He started with another increase with bullous lesions over the past week, and was initiated on prednisone. No fevers or chills. No nausea or vomiting. No shortness of breath. This morning after eating he got up and was so weak he fell to 1 knee and just could not get up so his called the ambulance. Vitals are stable. This happened to him a couple years ago and his "potassium was low". Onset: Gradual Duration: Day(s): (Several days of increasing weakness) Associated Symptoms: Reports: Weakness. Denies: Fever/Chills, Headaches, Loss of Appetite, Nausea/Vomiting, Shortness of Breath - Related Data Allergies Allergy/AdvReac Type Severity Reaction Status Date / Time codeine Allergy Anxiety Verified 12/03/19 14:43 Home Meds: Home Meds Carvedilol [Coreg] 6.25 mg PO BID 05/04/17 [History] Cholecalciferol (Vitamin D3) [Vitamin D3] 1,000 units PO DAILY 05/04/17 [History ] Multivitamin [Multivitamins] 1 mg PO DAILY 05/04/17 [History] Pramoxine HCl/Menthol [[place] Med Anti-Itch] 2 gm TOP ASDIRECTED PRN [History] Triamcinolone Acetonide [Triamcinolone Acetonide 0.1% Crm] 15 gm TOP TID [History] diphenhydrAMINE HCl [Benadryl] 25 - 50 mg PO BEDTIME 05/04/17 [History] metFORMIN [Glucophage] 1,000 mg PO BID 05/04/17 [History] Alogliptin Benzoate [Alogliptin] 25 mg PO DAILY 12/03/19 [History] Aspirin [Halfprin] 81 mg PO DAILY 12/03/19 [History] Clobetasol [Clobetasol 0.05%] 1 applic TOP BID 12/03/19 [History] Ferrous Sulfate [Ferosul] 325 mg PO DAILY 12/03/19 [History] Prednisone [IJD: predniSONE] 35 mg PO DAILY 12/03/19 [History] Ranitidine HCl [Ranitidine] 150 mg PO DAILY 12/03/19 [History] lisinopriL [Lisinopril] 5 mg PO DAILY 12/03/19 [History] Past Medical History HEENT History: Reports: Hard of Hearing, Impaired Vision Cardiovascular History: Reports: Hypertension Musculoskeletal History: Reports: Back Pain, Chronic Endocrine/Metabolic History: Reports: Diabetes, Type II Hematologic History: Reports: Blood Transfusion(s), Other (See Below) 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 Immunologic History: Reports: None Oncologic (Cancer) History: Reports: None Dermatologic History: Reports: Other (See Below) Other Dermatologic History: bullosis - Infectious Disease History Infectious Disease History: Reports: Chicken Pox - Past Surgical History GI Surgical History: Reports: Cholecystectomy Musculoskeletal Surgical History: Reports: Knee Replacement, Shoulder Surgery Social & Family History - Family History Neurological: Reports: CVA - Caffeine Use Caffeine Use: Reports: Coffee ED ROS GENERAL - Review of Systems Review Of Systems: See Below Constitutional: Reports: Malaise. Denies: Fever, Chills HEENT: Reports: No Symptoms Respiratory: Denies: Shortness of Breath Cardiovascular: Denies: Chest Pain Endocrine: Denies: Fatigue GI/Abdominal: Denies: Diarrhea, Nausea, Vomiting : Reports: No Symptoms Skin: Reports: Other (Widespread painful bullous lesions, weeping and some actually bleeding. His hands are wrapped with gauze.) Psychiatric: Reports: No Symptoms ED EXAM, GENERAL - Physical Exam Exam: See Below Exam Limited By: No Limitations General Appearance: Alert, No Apparent Distress Eye Exam: Bilateral Eye: Normal Inspection Head: Atraumatic Neck: Supple Respiratory/Chest: Lungs Clear Cardiovascular: Regular Rate, Rhythm, Systolic Murmur (2/6 systolic ejection murmur) GI/Abdominal: Soft, Non-Tender Extremities: Other (Just a trace of symmetric ankle edema) Neurological: Alert, Oriented Skin Exam: Other (Patient has widespread blistering lesions with serous fluid, some desquamated and bleeding in various stages of healing) Course - Vital Signs Last Recorded V/S: Last Vital Signs Temp 99.6 F 12/03/19 17:27 Pulse 78 12/03/19 17:27 Resp 16 12/03/19 17:27 BP 136/63 12/03/19 17:27 Pulse Ox 100 12/03/19 17:27 - Orders/Labs/Meds Orders: Active Orders 24 hr Category Date Time Status CULTURE URINE [RM] Stat Lab 12/03/19 16:19 Received Medication Orders Acetaminophen (Tylenol) 650 mg PO Q4H PRN PRN Reason: Pain (Mild 1-3)/fever Alogliptin Benzoate (Alogliptin) 25 mg PO DAILY [facility] Aspirin (Halfprin) 81 mg PO DAILY [facility] Carvedilol (Coreg) 6.25 mg PO BIDMEALS [facility] Clobetasol Propionate (Clobetasol 0.05%) gm TOP BID [facility] Dextrose (Glutose 15) 15 gm PO ONETIME PRN PRN Reason: Hypoglycemia Dextrose/Water (Dextrose 50% In Water) 50 ml IV ONETIME PRN PRN Reason: Hypoglycemia Diphenhydramine HCl (Benadryl) 25 mg PO BEDTIME [facility] Enoxaparin Sodium (Lovenox) 40 mg SUBCUT DAILY [facility] Ceftriaxone Sodium 1 gm/ (Sodium Chloride) 50 mls @ 100 mls/hr IV Q24H [facility] Sodium Chloride (Normal Saline) 1,000 mls @ 125 mls/hr IV ASDIRECTED [facility] Insulin Glargine (Lantus Solostar) 16 units SUBCUT BEDTIME [facility] Insulin Human Lispro (Humalog) 0 unit SUBCUT QIDACANDBED [facility]; Protocol Lisinopril (Prinivil) 5 mg PO DAILY [facility] Non-Formulary Medication (Metformin [Glucophage]) 1,000 mg PO BID [facility] Non-Formulary Medication (Ranitidine Hcl [Ranitidine]) 150 mg PO DAILY [facility] Ondansetron HCl (Zofran) 4 mg IV Q4H PRN PRN Reason: Nausea/Vomiting Oxycodone HCl (Oxycodone) 5 mg PO Q4H PRN PRN Reason: Pain (moderate 4-6) Polyethylene Glycol (Miralax) 17 gm PO DAILY PRN PRN Reason: Constipation Prednisone (Prednisone) 35 mg PO DAILY [facility] Triamcinolone Acetonide (Triamcinolone Acetonide 0.1% Crm) 15 gm TOP TID [facility] Labs: Laboratory Tests 12/03/19 12/03/19 12/03/19 Range/Units 15:00 15:00 15:01 WBC 8.2 (4.5-11.0) K/uL RBC 4.70 (4.30-5.90) M/uL Hgb 12.8 (12.0-15.0) g/dL Hct 41.0 (40.0-54.0) % MCV 87 (80-98) fL MCH 27 (27-31) pg MCHC 31 L (32-36) % Plt Count 330 (150-400) K/uL Neut % (Auto) 79 H (36-66) % Lymph % (Auto) 11 L (24-44) % [place] % (Auto) 10 H (2-6) % Eos % (Auto) 1 L (2-4) % Baso % (Auto) 0 (0-1) % Sodium 139 L (140-148) mmol/L Potassium 5.4 H (3.6-5.2) mmol/L Chloride 105 (100-108) mmol/L Carbon Dioxide 23 (21-32) mmol/L Anion Gap 16.4 H (5.0-14.0) mmol/L BUN 23 H (7-18) mg/dL Creatinine 1.2 (0.8-1.3) mg/dL Est Cr Clr Drug Dosing 48.50 mL/min Estimated GFR (MDRD) 57 L (>60) Glucose 513 H* (74-106) mg/dL Calcium 9.4 (8.5-10.1) mg/dL Total Bilirubin 0.3 (0.2-1.0) mg/dL AST 7 L (15-37) U/L ALT 17 (12-78) U/L Alkaline Phosphatase 52 (46-116) U/L Total Protein 6.3 L (6.4-8.2) g/dL Albumin 2.6 L (3.4-5.0) g/dL Globulin 3.7 H (2.3-3.5) g/dL Albumin/Globulin Ratio 0.7 L (1.2-2.2) Urine Color Yellow (YELLOW) Urine Appearance Cloudy A (CLEAR) Urine pH 5.5 (5.0-8.0) Ur Specific [place] 1.015 (1.008-1.030) Urine Protein Negative (NEGATIVE) mg/dL Urine Glucose (UA) 500 H (NEGATIVE) mg/dL Urine Ketones Negative (NEGATIVE) mg/dL Urine Occult Blood Small H (NEGATIVE) Urine Nitrite Negative (NEGATIVE) Urine Bilirubin Negative (NEGATIVE) Urine Urobilinogen 0.2 (0.2-1.0) EU/dL Ur Leukocyte Esterase Small H (NEGATIVE) Urine RBC 10-20 H (0-5) Urine WBC 20-30 H (0-5) Ur Epithelial Cells Not seen Amorphous Sediment Many Urine Bacteria Many Urine Mucus Not seen Meds: Medications Generic Name Dose Route Start Last Admin Trade Name Freq PRN Reason Stop Dose Admin Acetaminophen 650 mg 12/03/19 17:34 Tylenol PO Q4H PRN Pain (Mild 1-3)/fever Alogliptin Benzoate 25 mg 12/04/19 09:00 Alogliptin PO DAILY [facility] Aspirin 81 mg 12/04/19 09:00 Halfprin PO DAILY [facility] Carvedilol 6.25 mg 12/03/19 18:00 Coreg PO BIDMEALS [facility] Clobetasol Propionate gm 12/03/19 21:00 Clobetasol 0.05% TOP BID [facility] Dextrose 15 gm 12/03/19 17:34 Glutose 15 PO ONETIME PRN Hypoglycemia Dextrose/Water 50 ml 12/03/19 17:34 Dextrose 50% In Water IV ONETIME PRN Hypoglycemia Diphenhydramine HCl 25 mg 12/03/19 21:00 Benadryl PO BEDTIME [facility] Enoxaparin Sodium 40 mg 12/03/19 17:34 Lovenox SUBCUT DAILY [facility] Ceftriaxone Sodium 1 gm/ 50 mls @ 100 mls/hr 12/03/19 18:00 Sodium Chloride IV Q24H [facility] Sodium Chloride 1,000 mls @ 125 mls/hr 12/03/19 17:34 Normal Saline IV ASDIRECTED [facility] Insulin Glargine 16 units 12/03/19 21:00 Lantus Solostar SUBCUT BEDTIME [facility] Insulin Human Lispro 0 unit 12/03/19 17:34 Humalog SUBCUT QIDACANDBED [facility] Protocol Lisinopril 5 mg 12/04/19 09:00 Prinivil PO DAILY [facility] Non-Formulary Medication 1,000 mg 12/03/19 21:00 Metformin [Glucophage] PO BID [facility] Non-Formulary Medication 150 mg 12/04/19 09:00 Ranitidine Hcl [Ranitidine] PO DAILY [facility] Ondansetron HCl 4 mg 12/03/19 17:34 Zofran IV Q4H PRN Nausea/Vomiting Oxycodone HCl 5 mg 12/03/19 17:34 Oxycodone PO Q4H PRN Pain (moderate 4-6) Polyethylene Glycol 17 gm 12/03/19 17:34 Miralax PO DAILY PRN Constipation Prednisone 35 mg 12/04/19 09:00 Prednisone PO DAILY [facility] Triamcinolone Acetonide 15 gm 12/03/19 21:00 Triamcinolone Acetonide 0.1% Crm TOP TID [facility] Discontinued Medications Generic Name Dose Route Start Last Admin Trade Name Freq PRN Reason Stop Dose Admin Sodium Chloride 1,000 mls @ 1,000 mls/hr 12/03/19 15:00 12/03/19 15:12 Normal Saline IV 1,000 mls/hr ASDIRECTED MADYSON Administration Insulin Human Regular 8 unit 12/03/19 15:39 12/03/19 16:01 Humulin R IVPUSH 12/03/19 15:40 8 units ONETIME ONE Administration Methylprednisolone Sodium Succinate 62.5 mg 12/03/19 14:44 12/03/19 15:12 Solu-Medrol IVPUSH 12/03/19 14:45 62.5 mg ONETIME ONE Administration - Re-Assessments/Exams Free Text/Narrative Re-Assessment/Exam: 12/03/19 15:00 An IV was started and the patient will be bolused with 1 L of normal saline. I suspect dehydration is a possibility with the widespread oozing bullous lesions. CBC and CMP will be drawn, and he will be given 62.5 mg of IV Solu- Medrol to supplement his oral prednisone. 12/03/19 15:40 CBC is normal, however his glucose is 513 with potassium 5.4. 12/03/19 15:41 Patient will be given 8 units of IV insulin. He feels too weak to return home, so he will be reassessed after 1 L of IV fluid and if still significantly weak the hospital service will be consulted for admission. Departure - Departure Time of Disposition: 17:17 Disposition: Admitted As Inpatient 64 Clinical Impression: Dehydration, Weakness, Bullous pemphigoid, Hyperglycemia - Discharge Information Sepsis Event Note - Evaluation Sepsis Screening Result: No Definite Risk - Focused Exam Vital Signs: Vital Signs Temp Pulse Resp BP Pulse Ox 12/03/19 16:18 96.7 F 72 16 137/57 L 97 12/03/19 14:45 99.1 F 84 16 139/65 99 Date Exam was Performed: 12/03/19 Time Exam was Performed: 17:55 - My Orders Last 24 Hours: My Active Orders 12/03/19 16:19 CULTURE URINE [RM] Stat - Assessment/Plan Last 24 Hours: My Active Orders 12/03/19 16:19 CULTURE URINE [RM] Stat
[2019-12-03] MEDS ORDERED: Insulin Regular, Human 100 Units/ML 3 ML Vial IVPUSH ONE (15:39)
--- NOTE | 2019-12-03 16:54 | PCM.HP.2 ---
H&P History of Present Illness - General Date of Service: 12/03/19 Admit Problem/Dx: Admission Diagnosis/Problem Admission Diagnosis/Problem UTI (urinary tract infection), uncomplicated Source of Information: Patient, Provider, RN Notes Reviewed History Limitations: Reports: No Limitations - History of Present Illness Initial Comments - Free Text/Narative: Mr. Mercer is an 84-year-old gentleman who was admitted through the emergency department with weakness secondary to active bolus pemphigus, hyperglycemia, and urinary tract infection. He has had difficulty with bullous pemphigus over the past 3 years. Recently began to experience a significant flare involving his entire body and was started on prednisone 35 mg daily. He was doing well until this morning when he tried to get out of a chair and fell to the floor, unable to get up even with attempted help from his . He was brought into the emergency department by EMS for further evaluation. He is received IV fluids but remains very weak. Blood sugar was markedly elevated at 500 and he is found to have evidence of a urinary tract infection. He currently denies any urinary symptoms and has had no fever or chills. - Related Data Allergies/Adverse Reactions: Allergies Allergy/AdvReac Type Severity Reaction Status Date / Time codeine Allergy Anxiety Verified 12/03/19 14:43 Home Medications: Home Meds Carvedilol [Coreg] 6.25 mg PO BID 05/04/17 [History] Cholecalciferol (Vitamin D3) [Vitamin D3] 1,000 units PO DAILY 05/04/17 [History ] Multivitamin [Multivitamins] 1 mg PO DAILY 05/04/17 [History] Pramoxine HCl/Menthol [[place] Med Anti-Itch] 2 gm TOP ASDIRECTED PRN [History] Triamcinolone Acetonide [Triamcinolone Acetonide 0.1% Crm] 15 gm TOP TID [History] diphenhydrAMINE HCl [Benadryl] 25 - 50 mg PO BEDTIME 05/04/17 [History] metFORMIN [Glucophage] 1,000 mg PO BID 05/04/17 [History] Alogliptin Benzoate [Alogliptin] 25 mg PO DAILY 12/03/19 [History] Aspirin [Halfprin] 81 mg PO DAILY 12/03/19 [History] Clobetasol [Clobetasol 0.05%] 1 applic TOP BID 12/03/19 [History] Ferrous Sulfate [Ferosul] 325 mg PO DAILY 12/03/19 [History] Prednisone [IJD: predniSONE] 35 mg PO DAILY 12/03/19 [History] Ranitidine HCl [Ranitidine] 150 mg PO DAILY 12/03/19 [History] lisinopriL [Lisinopril] 5 mg PO DAILY 12/03/19 [History] Past Medical History HEENT History: Reports: Hard of Hearing, Impaired Vision Cardiovascular History: Reports: Hypertension Gastrointestinal History: Reports: None Musculoskeletal History: Reports: Back Pain, Chronic Endocrine/Metabolic History: Reports: Diabetes, Type II Hematologic History: Reports: Blood Transfusion(s), Other (See Below) 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 Immunologic History: Reports: None Oncologic (Cancer) History: Reports: None Dermatologic History: Reports: Other (See Below) Other Dermatologic History: bullosis - Infectious Disease History Infectious Disease History: Reports: Chicken Pox - Past Surgical History Head Surgeries/Procedures: Reports: None HEENT Surgical History: Reports: None Cardiovascular Surgical History: Reports: None GI Surgical History: Reports: Cholecystectomy Endocrine Surgical History: Reports: None Musculoskeletal Surgical History: Reports: Knee Replacement, Shoulder Surgery Dermatological Surgical History: Reports: None Social & Family History - Family History Family Medical History: Noncontributory Neurological: Reports: CVA - Tobacco Use Smoking Status *Q: Former Smoker Years of Tobacco use: 20 Packs/Tins Daily: 2 Used Tobacco, but Quit: Yes Month/Year Tobacco Last Used: 1969 - Caffeine Use Caffeine Use: Reports: Coffee, Soda - Recreational Drug Use Recreational Drug Use: No H&P Review of Systems - Review of Systems: Review Of Systems: See Below General: Reports: Malaise, Weakness. Denies: Fever, Chills HEENT: Reports: No Symptoms Pulmonary: Reports: No Symptoms Cardiovascular: Reports: No Symptoms Gastrointestinal: Reports: No Symptoms Genitourinary: Reports: No Symptoms Musculoskeletal: Reports: No Symptoms Skin: Reports: Other (Active bullous pemphigus) Psychiatric: Reports: No Symptoms Neurological: Reports: No Symptoms Hematologic/Lymphatic: Reports: No Symptoms Immunologic: Reports: No Symptoms Exam - Exam Exam: See Below - Vital Signs Vital Signs: Last Vital Signs Temp 96.7 F 12/03/19 16:18 Pulse 72 12/03/19 16:18 Resp 16 12/03/19 16:18 BP 137/57 L 12/03/19 16:18 Pulse Ox 97 12/03/19 16:18 Weight: 192 lb - Exam Quality Assessment: DVT Prophylaxis, Skin Breakdown General: Alert, Oriented, Cooperative, Moderate Distress HEENT: Conjunctiva Clear, Hearing Intact, Normal Nasal Septum, Posterior Pharynx Clear, Pupils Equal. No: Mucosa Moist & [place] Neck: Supple, Trachea Midline, +2 Carotid Pulse wo Bruit Lungs: Clear to Auscultation, Normal Respiratory Effort Cardiovascular: Regular Rate, Regular Rhythm, Normal S1, Normal S2, Systolic Murmur. No: Diastolic Murmur GI/Abdominal Exam: Soft, Non-Tender, No Organomegaly, No Distention Back Exam: Normal Inspection, Full Range of Motion Extremities: Non-Tender, No Pedal Edema Skin: Warm, Other (Active bullous pemphigus most lesions are denuded and healing ) Neurological: Cranial Nerves Intact, Strength Equal Bilateral, Normal Speech, Normal Tone, Sensation Intact. No: Focal Deficit Neuro Extensive - Mental Status: Alert, Oriented x3, Normal Mood/Affect, Normal Cognition, Memory Intact - Patient Data Lab Results Last 24 hrs: Laboratory Results - last 24 hr 12/03/19 12/03/19 12/03/19 Range/Units 15:00 15:00 15:01 WBC 8.2 (4.5-11.0) K/uL RBC 4.70 (4.30-5.90) M/uL Hgb 12.8 (12.0-15.0) g/dL Hct 41.0 (40.0-54.0) % MCV 87 (80-98) fL MCH 27 (27-31) pg MCHC 31 L (32-36) % Plt Count 330 (150-400) K/uL Neut % (Auto) 79 H (36-66) % Lymph % (Auto) 11 L (24-44) % [place] % (Auto) 10 H (2-6) % Eos % (Auto) 1 L (2-4) % Baso % (Auto) 0 (0-1) % Sodium 139 L (140-148) mmol/L Potassium 5.4 H (3.6-5.2) mmol/L Chloride 105 (100-108) mmol/L Carbon Dioxide 23 (21-32) mmol/L Anion Gap 16.4 H (5.0-14.0) mmol/L BUN 23 H (7-18) mg/dL Creatinine 1.2 (0.8-1.3) mg/dL Est Cr Clr Drug Dosing 48.50 mL/min Estimated GFR (MDRD) 57 L (>60) Glucose 513 H* (74-106) mg/dL Calcium 9.4 (8.5-10.1) mg/dL Total Bilirubin 0.3 (0.2-1.0) mg/dL AST 7 L (15-37) U/L ALT 17 (12-78) U/L Alkaline Phosphatase 52 (46-116) U/L Total Protein 6.3 L (6.4-8.2) g/dL Albumin 2.6 L (3.4-5.0) g/dL Globulin 3.7 H (2.3-3.5) g/dL Albumin/Globulin Ratio 0.7 L (1.2-2.2) Urine Color Yellow (YELLOW) Urine Appearance Cloudy A (CLEAR) Urine pH 5.5 (5.0-8.0) Ur Specific [place] 1.015 (1.008-1.030) Urine Protein Negative (NEGATIVE) mg/dL Urine Glucose (UA) 500 H (NEGATIVE) mg/dL Urine Ketones Negative (NEGATIVE) mg/dL Urine Occult Blood Small H (NEGATIVE) Urine Nitrite Negative (NEGATIVE) Urine Bilirubin Negative (NEGATIVE) Urine Urobilinogen 0.2 (0.2-1.0) EU/dL Ur Leukocyte Esterase Small H (NEGATIVE) Urine RBC 10-20 H (0-5) Urine WBC 20-30 H (0-5) Ur Epithelial Cells Not seen Amorphous Sediment Many Urine Bacteria Many Urine Mucus Not seen Result Diagrams: 12/03/19 15:00 12/03/19 15:00 Sepsis Event Note - Evaluation Sepsis Screening Result: No Definite Risk - Focused Exam Vital Signs: Vital Signs Temp Pulse Resp BP Pulse Ox 12/03/19 16:18 96.7 F 72 16 137/57 L 97 12/03/19 14:45 99.1 F 84 16 139/65 99 Date Exam was Performed: 12/03/19 Time Exam was Performed: 16:49 *Q Meaningful Use (ADM) - VTE Risk Assess *Q Each Risk Factor Represents 1 Point: Obesity ( BMI > 25 kg/m2) Total Score 1 Point Risk Factors: 1 Each Risk Factor Represents 2 Points: None Total Score 2 Point Risk Factors: 0 Each Risk Factor Represents 3 Points: Age 75 Years or Greater Total Score 3 Point Risk Factors: 3 Each Risk Factor Represents 5 Points: None Total Score 5 Point Risk Factors: 0 Venous Thromboembolism Risk Factor Score *Q: 4 Problem List Initiated/Reviewed/Updated: Yes Orders Last 24hrs: Active Orders 24 hr Category Date Time Status Patient Status Manage Transfer [TRANSFER] Routine ADT 12/03/19 16:40 Ordered CULTURE URINE [RM] Stat Lab 12/03/19 16:19 Received Sodium Chloride 0.9% [Normal Saline] 1,000 ml Med 12/03/19 15:00 Active IV ASDIRECTED Resuscitation Status Routine Resus Stat 12/03/19 16:44 Ordered Medication Orders Sodium Chloride (Normal Saline) 1,000 mls @ 1,000 mls/hr IV ASDIRECTED MADYSON Last Admin: 12/03/19 15:12 Dose: 1,000 mls/hr Assessment/Plan Comment:: ASSESSMENT AND PLAN 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 -Continue prednisone 35 mg p.o. daily URINARY TRACT INFECTION-likely secondary to current steroid therapy and uncontrolled diabetes -IV fluids for hydration -Urine culture pending -Ceftriaxone 1 g IV every 24 hours pending culture results TYPE 2 DIABETES MELLITUS WITH HYPERGLYCEMIA-elevated blood sugars likely secondary to current infection as well as glucocorticoid therapy -Continue outpatient medical therapy -Add Lantus 16 units subcu nightly -Low-dose sliding scale Humalog -4 times daily glucometers GENERALIZED WEAKNESS-likely multifactorial related to uncontrolled diabetes, dehydration, and urinary tract infection -Physical therapy consult MAINTENANCE ISSUES -DVT prophylaxis; Lovenox 40 mg subcu daily -GI prophylaxis; continue outpatient H2 amanda therapy -Croft catheter; not indicated -Nutrition; consistent carb diet -Nicotine dependence; not required CODE STATUS-FULL CODE ADMISSION STATUS-patient will be admitted to inpatient status, expect at least a 2 night hospital stay for evaluation and management of problems as outlined above. At the time of this admission I do not reasonably expected evaluation and management of this problem will require more than a 96 hour hospital stay. DISPOSITION-anticipate discharge to home after the hospital stay. PRIMARY CARE PROVIDER-[facility] - Mortality Measure Prognosis:: Good
[2019-12-03] MEDS ORDERED: Glucose Gel 15 GM in 37.5 GM Tube PO PRN (17:34)
[2019-12-03] MEDS ORDERED: Acetaminophen 325 MG Tab PO PRN (17:34)
[2019-12-03] MEDS ORDERED: Ondansetron 4 MG/2 ML SDV IV PRN (17:34)
[2019-12-03] MEDS ORDERED: 50% Dextrose in Water 50 ML Syringe IV PRN (17:34)
[2019-12-03] MEDS ORDERED: Enoxaparin 40 MG/0.4 ML Syringe SUBCUT SCH (17:34)
[2019-12-03] MEDS ORDERED: Polyethylene Glycol 3350 Powder 17 GM Packet PO PRN (17:34)
[2019-12-03] MEDS: Sodium Chloride 0.9% 1,000 ML IV SCH (18:22)
[2019-12-03] MEDS: Insulin Lispro 100 Unit/ML 3 ML KwikPen SUBCUT SCH ×3 (19:23→22:40)
[2019-12-03] MEDS: Carvedilol 6.25 MG Tab PO SCH (19:55)
[2019-12-03] MEDS: cefTRIAXone 1 GM in Sodium Chloride 0.9% 50 ML IV SCH (19:56)
[2019-12-03] MEDS: metFORMIN 500 MG Tab PO SCH (19:56)
[2019-12-03] MEDS: Clobetasol 0.05% Crm 30 GM Tube TOP SCH (20:12)
[2019-12-03] MEDS ORDERED: Insulin Glargine,Human Rec. Analog 100 Units/ML 3 ML Pen SUBCUT SCH (21:00)
[2019-12-03] MEDS: Triamcinolone Acetonide 0.1% Crm 15 GM Tube TOP SCH (21:50)
[2019-12-03] MEDS: diphenhydrAMINE 25 MG Cap PO SCH (21:57)
[2019-12-03] MEDS ORDERED: Insulin Lispro 100 Units/ML 3 ML Vial SUBCUT ONE (22:02)
[2019-12-04] MEDS: Sodium Chloride 0.9% 1,000 ML IV SCH ×2 (01:21→08:57)
[2019-12-04] MEDS: oxyCODONE 5 MG Tab PO PRN ×2 (06:41→15:13)
[2019-12-04] MEDS: Carvedilol 6.25 MG Tab PO SCH ×2 (08:19→16:46)
[2019-12-04] MEDS: metFORMIN 500 MG Tab PO SCH ×2 (08:19→16:47)
[2019-12-04] MEDS: Aspirin 81 MG Tab.EC PO SCH (08:24)
[2019-12-04] MEDS: Clobetasol 0.05% Crm 30 GM Tube TOP SCH (08:24)
[2019-12-04] MEDS: Famotidine 20 MG Tab PO SCH (08:25)
[2019-12-04] MEDS: Lisinopril 5 MG Tab PO SCH (08:26)
[2019-12-04] MEDS: predniSONE 20 MG, predniSONE 10 MG, predniSONE 5 MG PO SCH ×3 (08:27)
[2019-12-04] MEDS: Insulin Lispro 100 Unit/ML 3 ML KwikPen SUBCUT SCH ×4 (08:27→21:52)
[2019-12-04] MEDS ORDERED: predniSONE 10 MG Tab PO SCH (09:00)
[2019-12-04] MEDS: Triamcinolone Acetonide 0.1% Crm 15 GM Tube TOP SCH ×3 (09:00→21:56)
--- NOTE | 2019-12-04 10:19 | PCM.PN ---
- General Info Date of Service: 12/04/19 Subjective Update: Mr. Mercer has noted improvement from admission with increased strength and appetite. Blood sugars are under better control with addition of long-acting insulin. Vital signs have remained stable and he has been afebrile. Functional Status: Reports: Tolerating Diet, Ambulating, Urinating - Review of Systems General: Reports: Weakness. Denies: Fever, Chills Pulmonary: Reports: No Symptoms Cardiovascular: Reports: No Symptoms Gastrointestinal: Reports: No Symptoms - Patient Data Vitals - Most Recent: Last Vital Signs Temp 98.7 F 12/04/19 07:19 Pulse 72 12/04/19 08:19 Resp 16 12/04/19 07:19 BP 128/72 12/04/19 08:26 Pulse Ox 97 12/04/19 07:19 Weight - Most Recent: 192 lb 0.009 oz I&O - Last 24 Hours: Intake & Output 12/03/19 12/04/19 12/04/19 22:59 06:59 14:59 Intake Total 480 1293 300 Output Total 500 450 200 Balance -20 843 100 Lab Results Last 24 Hours: Laboratory Results - last 24 hr 12/03/19 12/03/19 12/03/19 Range/Units 15:00 15:00 15:01 WBC 8.2 (4.5-11.0) K/uL RBC 4.70 (4.30-5.90) M/uL Hgb 12.8 (12.0-15.0) g/dL Hct 41.0 (40.0-54.0) % MCV 87 (80-98) fL MCH 27 (27-31) pg MCHC 31 L (32-36) % Plt Count 330 (150-400) K/uL Neut % (Auto) 79 H (36-66) % Lymph % (Auto) 11 L (24-44) % Bay % (Auto) 10 H (2-6) % Eos % (Auto) 1 L (2-4) % Baso % (Auto) 0 (0-1) % Sodium 139 L (140-148) mmol/L Potassium 5.4 H (3.6-5.2) mmol/L Chloride 105 (100-108) mmol/L Carbon Dioxide 23 (21-32) mmol/L Anion Gap 16.4 H (5.0-14.0) mmol/L BUN 23 H (7-18) mg/dL Creatinine 1.2 (0.8-1.3) mg/dL Est Cr Clr Drug Dosing 48.50 mL/min Estimated GFR (MDRD) 57 L (>60) Glucose 513 H* (74-106) mg/dL Calcium 9.4 (8.5-10.1) mg/dL Total Bilirubin 0.3 (0.2-1.0) mg/dL AST 7 L (15-37) U/L ALT 17 (12-78) U/L Alkaline Phosphatase 52 (46-116) U/L Total Protein 6.3 L (6.4-8.2) g/dL Albumin 2.6 L (3.4-5.0) g/dL Globulin 3.7 H (2.3-3.5) g/dL Albumin/Globulin Ratio 0.7 L (1.2-2.2) Urine Color Yellow (YELLOW) Urine Appearance Cloudy A (CLEAR) Urine pH 5.5 (5.0-8.0) Ur Specific [place] 1.015 (1.008-1.030) Urine Protein Negative (NEGATIVE) mg/dL Urine Glucose (UA) 500 H (NEGATIVE) mg/dL Urine Ketones Negative (NEGATIVE) mg/dL Urine Occult Blood Small H (NEGATIVE) Urine Nitrite Negative (NEGATIVE) Urine Bilirubin Negative (NEGATIVE) Urine Urobilinogen 0.2 (0.2-1.0) EU/dL Ur Leukocyte Esterase Small H (NEGATIVE) Urine RBC 10-20 H (0-5) Urine WBC 20-30 H (0-5) Ur Epithelial Cells Not seen Amorphous Sediment Many Urine Bacteria Many Urine Mucus Not seen 12/04/19 12/04/19 Range/Units 05:35 05:35 WBC 6.7 (4.5-11.0) K/uL RBC 4.22 L (4.30-5.90) M/uL Hgb 11.5 L (12.0-15.0) g/dL Hct 37.2 L (40.0-54.0) % MCV 88 (80-98) fL MCH 27 (27-31) pg MCHC 31 L (32-36) % Plt Count 295 (150-400) K/uL Neut % (Auto) 63 (36-66) % Lymph % (Auto) 18 L (24-44) % Bay % (Auto) 19 H (2-6) % Eos % (Auto) 0 L (2-4) % Baso % (Auto) 0 (0-1) % Sodium 142 (140-148) mmol/L Potassium 4.6 (3.6-5.2) mmol/L Chloride 110 H (100-108) mmol/L Carbon Dioxide 24 (21-32) mmol/L Anion Gap 12.6 (5.0-14.0) mmol/L BUN 23 H (7-18) mg/dL Creatinine 1.0 (0.8-1.3) mg/dL Est Cr Clr Drug Dosing 58.28 mL/min Estimated GFR (MDRD) > 60 (>60) Glucose 277 H (74-106) mg/dL Calcium 8.4 L (8.5-10.1) mg/dL Total Bilirubin (0.2-1.0) mg/dL AST (15-37) U/L ALT (12-78) U/L Alkaline Phosphatase (46-116) U/L Total Protein (6.4-8.2) g/dL Albumin (3.4-5.0) g/dL Globulin (2.3-3.5) g/dL Albumin/Globulin Ratio (1.2-2.2) Urine Color (YELLOW) Urine Appearance (CLEAR) Urine pH (5.0-8.0) Ur Specific [place] (1.008-1.030) Urine Protein (NEGATIVE) mg/dL Urine Glucose (UA) (NEGATIVE) mg/dL Urine Ketones (NEGATIVE) mg/dL Urine Occult Blood (NEGATIVE) Urine Nitrite (NEGATIVE) Urine Bilirubin (NEGATIVE) Urine Urobilinogen (0.2-1.0) EU/dL Ur Leukocyte Esterase (NEGATIVE) Urine RBC (0-5) Urine WBC (0-5) Ur Epithelial Cells Amorphous Sediment Urine Bacteria Urine Mucus Ashvin Results Last 24 Hours: Microbiology 12/03/19 16:19 Urine Culture - Preliminary Urine, Clean Catch Med Orders - Current: Current Medications Acetaminophen (Tylenol) 650 mg PO Q4H PRN PRN Reason: Pain (Mild 1-3)/fever Last Admin: 12/04/19 01:26 Dose: 650 mg Alogliptin Benzoate (Alogliptin) 25 mg PO DAILY [facility] Last Admin: 12/04/19 08:18 Dose: 25 mg Aspirin (Halfprin) 81 mg PO DAILY [facility] Last Admin: 12/04/19 08:24 Dose: 81 mg Carvedilol (Coreg) 6.25 mg PO BIDMEALS [facility] Last Admin: 12/04/19 08:19 Dose: 6.25 mg Dextrose (Glutose 15) 15 gm PO ONETIME PRN PRN Reason: Hypoglycemia Dextrose/Water (Dextrose 50% In Water) 50 ml IV ONETIME PRN PRN Reason: Hypoglycemia Diphenhydramine HCl (Benadryl) 25 mg PO BEDTIME [facility] Last Admin: 12/03/19 21:57 Dose: 25 mg Enoxaparin Sodium (Lovenox) 40 mg SUBCUT Q24H [facility] Famotidine (Pepcid) 20 mg PO DAILY [facility] Last Admin: 12/04/19 08:25 Dose: 20 mg Ceftriaxone Sodium 1 gm/ (Sodium Chloride) 50 mls @ 100 mls/hr IV Q24H [facility] Last Admin: 12/03/19 19:56 Dose: 100 mls/hr Insulin Glargine (Lantus Solostar) 24 units SUBCUT BEDTIME [facility] Insulin Human Lispro (Humalog) 0 unit SUBCUT QIDACANDBED [facility]; Protocol Last Admin: 12/04/19 08:27 Dose: 3 units Lisinopril (Prinivil) 5 mg PO DAILY [facility] Last Admin: 12/04/19 08:26 Dose: 5 mg Metformin HCl (Glucophage) 1,000 mg PO BIDMEALS [facility] Last Admin: 12/04/19 08:19 Dose: 1,000 mg Ondansetron HCl (Zofran) 4 mg IV Q4H PRN PRN Reason: Nausea/Vomiting Oxycodone HCl (Oxycodone) 5 mg PO Q4H PRN PRN Reason: Pain (moderate 4-6) Last Admin: 12/04/19 06:41 Dose: 5 mg Clobetasol Prop Oint (0.05% (Ptom)) 0 each TOP BID [facility] Polyethylene Glycol (Miralax) 17 gm PO DAILY PRN PRN Reason: Constipation Prednisone 20 mg/ Prednisone (10 mg/ Prednisone 5 mg) 35 mg PO DAILY [facility] Last Admin: 12/04/19 08:27 Dose: 35 mg Triamcinolone Acetonide (Triamcinolone Acetonide 0.1% Crm) 0 gm TOP TID [facility] Last Admin: 12/03/19 21:50 Dose: Not Given Discontinued Medications Clobetasol Propionate (Clobetasol 0.05%) 0 gm TOP BID [facility] Last Admin: 12/04/19 08:24 Dose: 1 dose Enoxaparin Sodium (Lovenox) 40 mg SUBCUT DAILY [facility] Last Admin: 12/03/19 19:55 Dose: 40 mg Sodium Chloride (Normal Saline) 1,000 mls @ 1,000 mls/hr IV ASDIRECTED [facility] Last Admin: 12/03/19 15:12 Dose: 1,000 mls/hr Sodium Chloride (Normal Saline) 1,000 mls @ 125 mls/hr IV ASDIRECTED [facility] Last Admin: 12/04/19 08:57 Dose: 125 mls/hr Insulin Glargine (Lantus Solostar) 16 units SUBCUT BEDTIME [facility] Last Admin: 12/03/19 22:37 Dose: 16 units Insulin Human Lispro (Humalog) 10 unit SUBCUT ONETIME ONE Stop: 12/03/19 22:03 Last Admin: 12/03/19 22:42 Dose: Not Given Insulin Human Regular (Humulin R) 8 unit IVPUSH ONETIME ONE Stop: 12/03/19 15:40 Last Admin: 12/03/19 16:01 Dose: 8 units Methylprednisolone Sodium Succinate (Solu-Medrol) 62.5 mg IVPUSH ONETIME ONE Stop: 12/03/19 14:45 Last Admin: 12/03/19 15:12 Dose: 62.5 mg - Exam Quality Assessment: DVT Prophylaxis General: Alert, Oriented, Cooperative, Mild Distress Lungs: Clear to Auscultation, Normal Respiratory Effort Cardiovascular: Regular Rate, Regular Rhythm, No Murmurs GI/Abdominal Exam: Soft, Non-Tender, No Organomegaly, No Distention Extremities: Non-Tender, No Pedal Edema Sepsis Event Note - Evaluation Sepsis Screening Result: No Definite Risk - Focused Exam Vital Signs: Vital Signs Temp Pulse Pulse Resp BP BP Pulse Ox 12/04/19 08:26 128/72 12/04/19 08:19 72 128/72 12/04/19 07:19 98.7 F 73 16 128/72 97 12/04/19 02:49 97.1 F 78 16 128/45 L 97 02/07/20 22:36 99 F 67 16 120/50 L 96 Date Exam was Performed: 12/04/19 Time Exam was Performed: 10:17 - Problem List Review Problem List Initiated/Reviewed/Updated: Yes - My Orders Last 24 Hours: My Active Orders 12/03/19 16:44 Resuscitation Status Routine 12/03/19 17:34 Patient Status [ADT] Routine Ambulate [RC] QID Blood Glucose Check, Bedside [RC] QIDACANDBED Communication Order [RC] STAT Diabetes Education [RC] Click to Edit Height and Weight [RC] 0500 Intake and Output [RC] QSHIFT Notify Provider Vital Signs [RC] ASDIRECTED Notify Provider [RC] PRN Oxygen Therapy [RC] PRN Up With Assistance [RC] ASDIRECTED Up to Chair [RC] QID VTE/DVT Education [RC] Per Unit Routine Vital Signs [RC] Q4H PT Evaluation and Treatment [CONS] Routine Acetaminophen [Tylenol] 650 mg PO Q4H PRN Dextrose 50% in Water 50 ml IV ONETIME PRN Dextrose [Glutose 15] 15 gm PO ONETIME PRN Insulin Lispro [HumaLOG] See Protocol SUBCUT QIDACANDBED Ondansetron [Zofran] 4 mg IV Q4H PRN oxyCODONE 5 mg PO Q4H PRN polyethylene glycoL 3350 [MiraLAX] 17 gm PO DAILY PRN 12/03/19 18:00 carvediloL [Coreg] 6.25 mg PO BIDMEALS cefTRIAXone [Rocephin] 1 gm Sodium Chloride 0.9% [Normal Saline] 50 ml IV Q24H 12/03/19 18:15 metFORMIN [Glucophage] 1,000 mg PO BIDMEALS 12/03/19 21:00 Triamcinolone Acetonide [Triamcinolone Acetonide 0.1% Crm] 0 gm TOP TID diphenhydrAMINE [Benadryl] 25 mg PO BEDTIME 12/03/19 Lunch Consistent Carbohydrate Diet [DIET] 12/04/19 09:00 Alogliptin Benzoate [Alogliptin] 25 mg PO DAILY Aspirin [Halfprin] 81 mg PO DAILY Famotidine [Pepcid] 20 mg PO DAILY Prednisone 35 mg PO DAILY lisinopriL [Prinivil] 5 mg PO DAILY 12/04/19 10:16 Convert IV to Saline Lock [OM.PC] Routine 12/04/19 11:30 GLUCOSE POC LAB TO COLLECT [POC] QIDACANDBED 12/04/19 16:30 GLUCOSE POC LAB TO COLLECT [POC] QIDACANDBED 12/04/19 20:00 Enoxaparin [Lovenox] 40 mg SUBCUT Q24H 12/04/19 21:00 GLUCOSE POC LAB TO COLLECT [POC] QIDACANDBED Insulin Glarg,Human.Rec.Analog [LantUS Solostar] 24 units SUBCUT BEDTIME Patient's Own Medication [Ptom] 0 each TOP BID 12/05/19 07:30 GLUCOSE POC LAB TO COLLECT [POC] QIDACANDBED 12/05/19 11:30 GLUCOSE POC LAB TO COLLECT [POC] QIDACANDBED 12/05/19 16:30 GLUCOSE POC LAB TO COLLECT [POC] QIDACANDBED 12/05/19 21:00 GLUCOSE POC LAB TO COLLECT [POC] QIDACANDBED 12/06/19 07:30 GLUCOSE POC LAB TO COLLECT [POC] QIDACANDBED 12/06/19 11:30 GLUCOSE POC LAB TO COLLECT [POC] QIDACANDBED 12/06/19 16:30 GLUCOSE POC LAB TO COLLECT [POC] QIDACANDBED 12/06/19 21:00 GLUCOSE POC LAB TO COLLECT [POC] QIDACANDBED 12/07/19 07:30 GLUCOSE POC LAB TO COLLECT [POC] QIDACANDBED 12/07/19 11:30 GLUCOSE POC LAB TO COLLECT [POC] QIDACANDBED 12/07/19 16:30 GLUCOSE POC LAB TO COLLECT [POC] QIDACANDBED 12/07/19 21:00 GLUCOSE POC LAB TO COLLECT [POC] QIDACANDBED 12/08/19 07:30 GLUCOSE POC LAB TO COLLECT [POC] QIDACANDBED 12/08/19 11:30 GLUCOSE POC LAB TO COLLECT [POC] QIDACANDBED 12/08/19 16:30 GLUCOSE POC LAB TO COLLECT [POC] QIDACANDBED - Plan Plan:: ASSESSMENT AND PLAN 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 -Continue prednisone 35 mg p.o. daily URINARY TRACT INFECTION-likely secondary to current steroid therapy and uncontrolled diabetes -Saline lock IV -Urine culture pending -Ceftriaxone 1 g IV every 24 hours pending culture results TYPE 2 DIABETES MELLITUS WITH HYPERGLYCEMIA-elevated blood sugars likely secondary to current infection as well as glucocorticoid therapy. With addition of insulin blood pressures are under better control but not yet within desired range -Continue outpatient medical therapy -Lantus 24 units subcu nightly -Low-dose sliding scale Humalog -4 times daily glucometers GENERALIZED WEAKNESS-likely multifactorial related to uncontrolled diabetes, dehydration, and urinary tract infection. Strength is mildly to moderately improved from admission -Physical therapy consult MAINTENANCE ISSUES -DVT prophylaxis; Lovenox 40 mg subcu daily -GI prophylaxis; continue outpatient H2 amanda therapy -Croft catheter; not indicated -Nutrition; consistent carb diet -Nicotine dependence; not required CODE STATUS-FULL CODE ADMISSION STATUS-patient will be admitted to inpatient status, expect at least a 2 night hospital stay for evaluation and management of problems as outlined above. At the time of this admission I do not reasonably expected evaluation and management of this problem will require more than a 96 hour hospital stay. DISPOSITION-anticipate discharge to home after the hospital stay. PRIMARY CARE PROVIDER-patient gets his primary care through the [facility] system
[2019-12-04] MEDS: cefTRIAXone 1 GM in Sodium Chloride 0.9% 50 ML IV SCH (18:45)
[2019-12-04] MEDS: Enoxaparin 40 MG/0.4 ML Syringe SUBCUT SCH (21:53)
[2019-12-04] MEDS: Insulin Glargine,Human Rec. Analog 100 Units/ML 3 ML Pen SUBCUT SCH (21:54)
[2019-12-04] MEDS: diphenhydrAMINE 25 MG Cap PO SCH (21:54)
[2019-12-04] MEDS: CLOBETASOL PROP 0.05% TOP SCH (21:55)
[2019-12-05] MEDS: oxyCODONE 5 MG Tab PO PRN ×3 (03:55→20:15)
[2019-12-05] MEDS: Insulin Lispro 100 Unit/ML 3 ML KwikPen SUBCUT SCH ×4 (07:36→21:45)
--- NOTE | 2019-12-05 10:01 | PCM.PN ---
- General Info Date of Service: 12/05/19 Subjective Update: Mr. Mercer has been stable since yesterday, good vital signs and no significant temperature elevation. Has ongoing open skin lesions related to his bullous pemphigus. Most troublesome lesions are on his hands making use of them very difficult. He does not feel that he would be able to function adequately at home and would like to consider group home placement. Functional Status: Reports: Tolerating Diet, Ambulating, Urinating - Review of Systems General: Reports: Weakness. Denies: Fever, Chills Pulmonary: Reports: No Symptoms Cardiovascular: Reports: No Symptoms Gastrointestinal: Reports: No Symptoms Skin: Reports: Other (Skin lesions related to bullous pemphigus) - Patient Data Vitals - Most Recent: Last Vital Signs Temp 99.3 F 12/05/19 07:00 Pulse 71 12/05/19 07:00 Resp 16 12/05/19 07:00 BP 126/52 L 12/05/19 07:00 Pulse Ox 98 12/05/19 07:00 Weight - Most Recent: 192 lb 0.009 oz I&O - Last 24 Hours: Intake & Output 12/04/19 12/05/19 12/05/19 22:59 06:59 14:59 Intake Total 950 60 Output Total 300 450 75 Balance 650 -390 -75 Ashvin Results Last 24 Hours: Microbiology 12/03/19 16:19 Urine Culture - Final Urine, Clean Catch Serratia Marcescens Med Orders - Current: Current Medications Acetaminophen (Tylenol) 650 mg PO Q4H PRN PRN Reason: Pain (Mild 1-3)/fever Last Admin: 12/04/19 01:26 Dose: 650 mg Alogliptin Benzoate (Alogliptin) 25 mg PO DAILY [facility] Last Admin: 12/04/19 08:18 Dose: 25 mg Aspirin (Halfprin) 81 mg PO DAILY [facility] Last Admin: 12/04/19 08:24 Dose: 81 mg Carvedilol (Coreg) 6.25 mg PO BIDMEALS [facility] Last Admin: 12/04/19 16:46 Dose: 6.25 mg Ciprofloxacin (Ciprofloxacin Hcl) 500 mg PO BID [facility] Dextrose (Glutose 15) 15 gm PO ONETIME PRN PRN Reason: Hypoglycemia Dextrose/Water (Dextrose 50% In Water) 50 ml IV ONETIME PRN PRN Reason: Hypoglycemia Diphenhydramine HCl (Benadryl) 25 mg PO BEDTIME [facility] Last Admin: 12/04/19 21:54 Dose: 25 mg Enoxaparin Sodium (Lovenox) 40 mg SUBCUT Q24H [facility] Last Admin: 12/04/19 21:53 Dose: 40 mg Famotidine (Pepcid) 20 mg PO DAILY [facility] Last Admin: 12/04/19 08:25 Dose: 20 mg Insulin Glargine (Lantus Solostar) 24 units SUBCUT BEDTIME [facility] Last Admin: 12/04/19 21:54 Dose: 24 units Insulin Human Lispro (Humalog) 0 unit SUBCUT QIDACANDBED [facility]; Protocol Last Admin: 12/05/19 07:36 Dose: Not Given Lactobacillus Rhamnosus (Culturelle) 1 cap PO BID [facility] Lisinopril (Prinivil) 5 mg PO DAILY [facility] Last Admin: 12/04/19 08:26 Dose: 5 mg Metformin HCl (Glucophage) 1,000 mg PO BIDMEALS [facility] Last Admin: 12/04/19 16:47 Dose: 1,000 mg Ondansetron HCl (Zofran) 4 mg IV Q4H PRN PRN Reason: Nausea/Vomiting Oxycodone HCl (Oxycodone) 5 mg PO Q4H PRN PRN Reason: Pain (moderate 4-6) Last Admin: 12/05/19 03:55 Dose: 5 mg Clobetasol Prop Oint (0.05% (Ptom)) 0 each TOP BID [facility] Last Admin: 12/04/19 21:55 Dose: 1 each Polyethylene Glycol (Miralax) 17 gm PO DAILY PRN PRN Reason: Constipation Prednisone 20 mg/ Prednisone (10 mg/ Prednisone 5 mg) 35 mg PO DAILY [facility] Last Admin: 12/04/19 08:27 Dose: 35 mg Triamcinolone Acetonide (Triamcinolone Acetonide 0.1% Crm) 0 gm TOP TID [facility] Last Admin: 12/04/19 21:56 Dose: 15 gm Discontinued Medications Clobetasol Propionate (Clobetasol 0.05%) 0 gm TOP BID [facility] Last Admin: 12/04/19 08:24 Dose: 1 dose Enoxaparin Sodium (Lovenox) 40 mg SUBCUT DAILY [facility] Last Admin: 12/03/19 19:55 Dose: 40 mg Sodium Chloride (Normal Saline) 1,000 mls @ 1,000 mls/hr IV ASDIRECTED [facility] Last Admin: 12/03/19 15:12 Dose: 1,000 mls/hr Ceftriaxone Sodium 1 gm/ (Sodium Chloride) 50 mls @ 100 mls/hr IV Q24H [facility] Last Admin: 12/04/19 18:45 Dose: 100 mls/hr Sodium Chloride (Normal Saline) 1,000 mls @ 125 mls/hr IV ASDIRECTED [facility] Last Admin: 12/04/19 08:57 Dose: 125 mls/hr Insulin Glargine (Lantus Solostar) 16 units SUBCUT BEDTIME [facility] Last Admin: 12/03/19 22:37 Dose: 16 units Insulin Human Lispro (Humalog) 10 unit SUBCUT ONETIME ONE Stop: 12/03/19 22:03 Last Admin: 12/03/19 22:42 Dose: Not Given Insulin Human Regular (Humulin R) 8 unit IVPUSH ONETIME ONE Stop: 12/03/19 15:40 Last Admin: 12/03/19 16:01 Dose: 8 units Methylprednisolone Sodium Succinate (Solu-Medrol) 62.5 mg IVPUSH ONETIME ONE Stop: 12/03/19 14:45 Last Admin: 12/03/19 15:12 Dose: 62.5 mg - Exam Quality Assessment: DVT Prophylaxis General: Alert, Oriented, Cooperative, Moderate Distress Lungs: Clear to Auscultation, Normal Respiratory Effort Cardiovascular: Regular Rate, Regular Rhythm, No Murmurs GI/Abdominal Exam: Soft, Non-Tender, No Organomegaly, No Distention Skin: Other (Extensive skin lesions in various stages of healing.) Sepsis Event Note - Evaluation Sepsis Screening Result: No Definite Risk - Focused Exam Vital Signs: Vital Signs Temp Pulse Resp BP Pulse Ox 12/05/19 07:00 99.3 F 71 16 126/52 L 98 12/05/19 02:41 99.0 F 69 16 127/49 L 97 12/04/19 22:48 98.9 F 73 16 138/58 L 100 Date Exam was Performed: 12/05/19 Time Exam was Performed: 09:56 - Problem List Review Problem List Initiated/Reviewed/Updated: Yes - My Orders Last 24 Hours: My Active Orders 12/04/19 09:00 Alogliptin Benzoate [Alogliptin] 25 mg PO DAILY Aspirin [Halfprin] 81 mg PO DAILY Famotidine [Pepcid] 20 mg PO DAILY Prednisone 35 mg PO DAILY lisinopriL [Prinivil] 5 mg PO DAILY 12/04/19 10:16 Convert IV to Saline Lock [OM.PC] Routine 12/04/19 20:00 Enoxaparin [Lovenox] 40 mg SUBCUT Q24H 12/04/19 21:00 Insulin Glarg,Human.Rec.Analog [LantUS Solostar] 24 units SUBCUT BEDTIME Patient's Own Medication [Ptom] 0 each TOP BID 12/05/19 10:00 Lactobacillus Rhamnosus GG [Culturelle] 1 cap PO BID 12/05/19 11:30 GLUCOSE POC LAB TO COLLECT [POC] QIDACANDBED 12/05/19 16:30 GLUCOSE POC LAB TO COLLECT [POC] QIDACANDBED 12/05/19 21:00 GLUCOSE POC LAB TO COLLECT [POC] QIDACANDBED Ciprofloxacin [Ciprofloxacin HCl] 500 mg PO BID 12/06/19 07:30 GLUCOSE POC LAB TO COLLECT [POC] QIDACANDBED 12/06/19 11:30 GLUCOSE POC LAB TO COLLECT [POC] QIDACANDBED 12/06/19 16:30 GLUCOSE POC LAB TO COLLECT [POC] QIDACANDBED 12/06/19 21:00 GLUCOSE POC LAB TO COLLECT [POC] QIDACANDBED 12/07/19 07:30 GLUCOSE POC LAB TO COLLECT [POC] QIDACANDBED 12/07/19 11:30 GLUCOSE POC LAB TO COLLECT [POC] QIDACANDBED 12/07/19 16:30 GLUCOSE POC LAB TO COLLECT [POC] QIDACANDBED 12/07/19 21:00 GLUCOSE POC LAB TO COLLECT [POC] QIDACANDBED 12/08/19 07:30 GLUCOSE POC LAB TO COLLECT [POC] QIDACANDBED 12/08/19 11:30 GLUCOSE POC LAB TO COLLECT [POC] QIDACANDBED 12/08/19 16:30 GLUCOSE POC LAB TO COLLECT [POC] QIDACANDBED - Plan Plan:: ASSESSMENT AND PLAN 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 Open lesions on his hands are most troublesome. -Continue prednisone 35 mg p.o. daily URINARY TRACT INFECTION-likely secondary to current steroid therapy and uncontrolled diabetes. Serratia growing from urine, today but all antibiotics except tetracycline -Saline lock IV -Ciprofloxacin 500 mg p.o. twice daily -Discontinue ceftriaxone TYPE 2 DIABETES MELLITUS WITH HYPERGLYCEMIA-elevated blood sugars likely secondary to current infection as well as glucocorticoid therapy. Leukos levels much better controlled with addition of insulin -Continue outpatient medical therapy -Lantus 24 units subcu nightly -Low-dose sliding scale Humalog -4 times daily glucometers GENERALIZED WEAKNESS-likely multifactorial related to uncontrolled diabetes, dehydration, and urinary tract infection. Strength is mildly to moderately improved from admission -Physical therapy follow-up MAINTENANCE ISSUES -DVT prophylaxis; Lovenox 40 mg subcu daily -GI prophylaxis; continue outpatient H2 amanda therapy -Croft catheter; not indicated -Nutrition; consistent carb diet -Nicotine dependence; not required CODE STATUS-FULL CODE ADMISSION STATUS-patient will be admitted to inpatient status, expect at least a 2 night hospital stay for evaluation and management of problems as outlined above. At the time of this admission I do not reasonably expected evaluation and management of this problem will require more than a 96 hour hospital stay. DISPOSITION-anticipate discharge to group home PRIMARY CARE PROVIDER-patient gets his primary care through the [facility]
[2019-12-05] MEDS: metFORMIN 500 MG Tab PO SCH ×2 (10:12→17:37)
[2019-12-05] MEDS: Carvedilol 6.25 MG Tab PO SCH ×2 (10:12→17:36)
[2019-12-05] MEDS: Famotidine 20 MG Tab PO SCH (10:13)
[2019-12-05] MEDS: Aspirin 81 MG Tab.EC PO SCH (10:13)
[2019-12-05] MEDS: Lisinopril 5 MG Tab PO SCH (10:13)
[2019-12-05] MEDS: predniSONE 20 MG, predniSONE 10 MG, predniSONE 5 MG PO SCH ×3 (10:14)
[2019-12-05] MEDS: CLOBETASOL PROP 0.05% TOP SCH (10:14)
[2019-12-05] MEDS: Triamcinolone Acetonide 0.1% Crm 15 GM Tube TOP SCH ×2 (10:14→14:05)
[2019-12-05] MEDS: Lactobacillus Rhamnosus GG (Probiotic) Cap PO SCH ×2 (11:36→20:16)
[2019-12-05] MEDS: Enoxaparin 40 MG/0.4 ML Syringe SUBCUT SCH (20:15)
[2019-12-05] MEDS: diphenhydrAMINE 25 MG Cap PO SCH (20:15)
[2019-12-05] MEDS: Ciprofloxacin 500 MG Tab PO SCH (20:16)
[2019-12-05] MEDS: Triamcinolone Acetonide 0.1% Crm 80 GM Tube TOP SCH (20:16)
[2019-12-05] MEDS: CLOBETASOL 0.05% TOP SCH (20:19)
[2019-12-05] MEDS: Insulin Glargine,Human Rec. Analog 100 Units/ML 3 ML Pen SUBCUT SCH (21:46)
[2019-12-06] MEDS: Carvedilol 6.25 MG Tab PO SCH ×2 (07:38→17:03)
[2019-12-06] MEDS: metFORMIN 500 MG Tab PO SCH ×2 (07:39→17:03)
[2019-12-06] MEDS: Insulin Lispro 100 Unit/ML 3 ML KwikPen SUBCUT SCH ×4 (07:42→21:12)
[2019-12-06] MEDS: Ciprofloxacin 500 MG Tab PO SCH ×2 (09:01→21:11)
[2019-12-06] MEDS: Famotidine 20 MG Tab PO SCH (09:01)
[2019-12-06] MEDS: predniSONE 20 MG, predniSONE 10 MG, predniSONE 5 MG PO SCH ×3 (09:02)
[2019-12-06] MEDS: Aspirin 81 MG Tab.EC PO SCH (09:02)
[2019-12-06] MEDS: Lactobacillus Rhamnosus GG (Probiotic) Cap PO SCH ×2 (09:02→21:10)
[2019-12-06] MEDS: Lisinopril 5 MG Tab PO SCH (09:02)
[2019-12-06] MEDS: CLOBETASOL 0.05% TOP SCH ×2 (09:03→21:18)
[2019-12-06] MEDS: Triamcinolone Acetonide 0.1% Crm 80 GM Tube TOP SCH ×3 (09:03→21:16)
--- NOTE | 2019-12-06 12:04 | PCM.PN ---
- General Info Date of Service: 12/06/19 Subjective Update: No acute events overnight. Blood sugars were moderately elevated yesterday but are slowly improving. Still having a fair amount of pain in his hands but this is slowly better. Strength seems to be slowly improving. He did have difficulty with urinary retention overnight and had a Croft catheter placed. He is not having fevers. Appetite has been decent. Functional Status: Reports: Pain Controlled, Tolerating Diet - Review of Systems General: Denies: Fever Skin: Reports: Rash - Patient Data Vitals - Most Recent: Last Vital Signs Temp 36.6 C 12/06/19 11:56 Pulse 74 12/06/19 11:56 Resp 16 12/06/19 11:56 BP 112/56 L 12/06/19 11:56 Pulse Ox 97 12/06/19 11:56 Weight - Most Recent: 82.191 kg I&O - Last 24 Hours: Intake & Output 12/05/19 12/06/19 12/06/19 22:59 06:59 14:59 Intake Total 1220 200 Output Total 500 600 450 Balance 720 -600 -250 Ashvin Results Last 24 Hours: Microbiology 12/03/19 16:19 Urine Culture - Final Urine, Clean Catch Serratia Marcescens Med Orders - Current: Current Medications Acetaminophen (Tylenol) 650 mg PO Q4H PRN PRN Reason: Pain (Mild 1-3)/fever Last Admin: 12/04/19 01:26 Dose: 650 mg Alogliptin Benzoate (Alogliptin) 25 mg PO DAILY [facility] Last Admin: 12/06/19 09:02 Dose: 25 mg Aspirin (Halfprin) 81 mg PO DAILY [facility] Last Admin: 12/06/19 09:02 Dose: 81 mg Carvedilol (Coreg) 6.25 mg PO BIDMEALS [facility] Last Admin: 12/06/19 07:38 Dose: 6.25 mg Ciprofloxacin (Ciprofloxacin Hcl) 500 mg PO BID [facility] Last Admin: 12/06/19 09:01 Dose: 500 mg Clobetasol Propionate (Temovate 0.05% Crm) 0 gm TOP BID [facility] Last Admin: 12/06/19 09:03 Dose: 1 applic Dextrose (Glutose 15) 15 gm PO ONETIME PRN PRN Reason: Hypoglycemia Dextrose/Water (Dextrose 50% In Water) 50 ml IV ONETIME PRN PRN Reason: Hypoglycemia Diphenhydramine HCl (Benadryl) 25 mg PO BEDTIME [facility] Last Admin: 12/05/19 20:15 Dose: 25 mg Enoxaparin Sodium (Lovenox) 40 mg SUBCUT Q24H [facility] Last Admin: 12/05/19 20:15 Dose: 40 mg Famotidine (Pepcid) 20 mg PO DAILY [facility] Last Admin: 12/06/19 09:01 Dose: 20 mg Insulin Glargine (Lantus Solostar) 24 units SUBCUT BEDTIME [facility] Last Admin: 12/05/19 21:46 Dose: 24 units Insulin Human Lispro (Humalog) 0 unit SUBCUT QIDACANDBED [facility]; Protocol Last Admin: 12/06/19 11:51 Dose: 1 units Lactobacillus Rhamnosus (Culturelle) 1 cap PO BID [facility] Last Admin: 12/06/19 09:02 Dose: 1 cap Lisinopril (Prinivil) 5 mg PO DAILY [facility] Last Admin: 12/06/19 09:02 Dose: 5 mg Metformin HCl (Glucophage) 1,000 mg PO BIDMEALS [facility] Last Admin: 12/06/19 07:39 Dose: 1,000 mg Ondansetron HCl (Zofran) 4 mg IV Q4H PRN PRN Reason: Nausea/Vomiting Oxycodone HCl (Oxycodone) 5 mg PO Q4H PRN PRN Reason: Pain (moderate 4-6) Last Admin: 12/05/19 14:03 Dose: 5 mg Polyethylene Glycol (Miralax) 17 gm PO DAILY PRN PRN Reason: Constipation Prednisone 20 mg/ Prednisone (10 mg/ Prednisone 5 mg) 35 mg PO DAILY [facility] Last Admin: 12/06/19 09:02 Dose: 35 mg Triamcinolone Acetonide (Kenalog 0.1% Crm) 0 gm TOP TID [facility] Last Admin: 12/06/19 09:03 Dose: 1 applic Discontinued Medications Clobetasol Propionate (Clobetasol 0.05%) 0 gm TOP BID [facility] Last Admin: 12/04/19 08:24 Dose: 1 dose Enoxaparin Sodium (Lovenox) 40 mg SUBCUT DAILY [facility] Last Admin: 12/03/19 19:55 Dose: 40 mg Sodium Chloride (Normal Saline) 1,000 mls @ 1,000 mls/hr IV ASDIRECTED [facility] Last Admin: 12/03/19 15:12 Dose: 1,000 mls/hr Ceftriaxone Sodium 1 gm/ (Sodium Chloride) 50 mls @ 100 mls/hr IV Q24H [facility] Last Admin: 12/04/19 18:45 Dose: 100 mls/hr Sodium Chloride (Normal Saline) 1,000 mls @ 125 mls/hr IV ASDIRECTED [facility] Last Admin: 12/04/19 08:57 Dose: 125 mls/hr Insulin Glargine (Lantus Solostar) 16 units SUBCUT BEDTIME [facility] Last Admin: 12/03/19 22:37 Dose: 16 units Insulin Human Lispro (Humalog) 10 unit SUBCUT ONETIME ONE Stop: 12/03/19 22:03 Last Admin: 12/03/19 22:42 Dose: Not Given Insulin Human Regular (Humulin R) 8 unit IVPUSH ONETIME ONE Stop: 12/03/19 15:40 Last Admin: 12/03/19 16:01 Dose: 8 units Methylprednisolone Sodium Succinate (Solu-Medrol) 62.5 mg IVPUSH ONETIME ONE Stop: 12/03/19 14:45 Last Admin: 12/03/19 15:12 Dose: 62.5 mg Clobetasol Prop Oint (0.05% (Ptom)) 0 each TOP BID [facility] Last Admin: 12/05/19 10:14 Dose: 1 each Triamcinolone Acetonide (Triamcinolone Acetonide 0.1% Crm) 0 gm TOP TID [facility] Last Admin: 12/05/19 14:05 Dose: 15 gm - Exam Quality Assessment: No: Supplemental Oxygen General: Alert, Oriented, Cooperative, No Acute Distress Lungs: Normal Respiratory Effort GI/Abdominal Exam: Soft, No Distention Extremities: No Pedal Edema Skin: Rash (drying skin lesions on face and arms. still weeping from hand lesions) Psy/Mental Status: Alert, Normal Affect Sepsis Event Note - Evaluation Sepsis Screening Result: No Definite Risk - Focused Exam Vital Signs: Vital Signs Temp Pulse Pulse Resp BP BP Pulse Ox 12/06/19 11:56 36.6 C 74 16 112/56 L 97 12/06/19 09:02 131/57 L 12/06/19 07:38 73 131/57 L 12/06/19 07:31 36.3 C 73 16 131/57 L 98 12/06/19 02:46 37.2 C 71 17 137/52 L 97 Date Exam was Performed: 12/06/19 Time Exam was Performed: 16:12 - Problem List Review Problem List Initiated/Reviewed/Updated: Yes - My Orders Last 24 Hours: My Active Orders 12/06/19 21:00 Insulin Glarg,Human.Rec.Analog [LantUS Solostar] 30 units SUBCUT BEDTIME 12/07/19 09:00 Tamsulosin [Flomax] 0.4 mg PO PCBREAKFAST - Plan Plan:: ASSESSMENT AND PLAN 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 Most troublesome lesions at this point are on his hands but these are slowly improving. -Continue prednisone 35 mg p.o. 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 Serratia growing from urine, transitioned to oral antibiotics. -Saline lock IV -Ciprofloxacin 500 mg p.o. twice daily ACUTE URINARY RETENTION-probably related to current urinary tract infection. Croft catheter placed overnight. -Tamsulosin daily -Continue Croft catheter, anticipate this will remain in place for 2 weeks TYPE 2 DIABETES MELLITUS WITH HYPERGLYCEMIA-elevated blood sugars likely secondary to current infection as well as glucocorticoid therapy. Glucose levels have been improving but remain moderately elevated. -Continue outpatient medical therapy -Lantus 30 units subcu nightly -Low-dose sliding scale Humalog -4 times daily glucometers -Diabetic education for outpatient insulin management GENERALIZED WEAKNESS-likely multifactorial related to uncontrolled diabetes, dehydration, and urinary tract infection. Strength is slowly improving. -Physical therapy follow-up MAINTENANCE ISSUES -DVT prophylaxis; Lovenox 40 mg subcu daily -GI prophylaxis; continue outpatient H2 amanda therapy -Croft catheter; not indicated -Nutrition; consistent carb diet DISPOSITION-anticipate discharge to home with home care Win Vargas MD
[2019-12-06] MEDS ORDERED: Insulin Glargine,Human Rec. Analog 100 Units/ML 3 ML Pen SUBCUT SCH (21:00)
[2019-12-06] MEDS: oxyCODONE 5 MG Tab PO PRN (21:10)
[2019-12-06] MEDS: Enoxaparin 40 MG/0.4 ML Syringe SUBCUT SCH (21:12)
[2019-12-06] MEDS: diphenhydrAMINE 25 MG Cap PO SCH (21:18)
[2019-12-07 07:51] VITALS: PULSE 72
[2019-12-07] MEDS: Carvedilol 6.25 MG Tab PO SCH (07:55)
[2019-12-07] MEDS: metFORMIN 500 MG Tab PO SCH (07:56)
[2019-12-07] MEDS: Insulin Lispro 100 Unit/ML 3 ML KwikPen SUBCUT SCH ×2 (07:56→11:43)
[2019-12-07] MEDS: Ciprofloxacin 500 MG Tab PO SCH (08:02)
[2019-12-07] MEDS: Lactobacillus Rhamnosus GG (Probiotic) Cap PO SCH (08:02)
[2019-12-07] MEDS: Lisinopril 5 MG Tab PO SCH (08:03)
[2019-12-07] MEDS: Famotidine 20 MG Tab PO SCH (08:03)
[2019-12-07] MEDS: Aspirin 81 MG Tab.EC PO SCH (08:03)
[2019-12-07] MEDS: predniSONE 20 MG, predniSONE 10 MG, predniSONE 5 MG PO SCH ×3 (08:03)
[2019-12-07] MEDS ORDERED: Tamsulosin 0.4 MG Cap.ER PO SCH (09:00)
[2019-12-07] MEDS: Triamcinolone Acetonide 0.1% Crm 80 GM Tube TOP SCH (09:51)
[2019-12-07] MEDS: CLOBETASOL 0.05% TOP SCH (09:52)
--- NOTE | 2019-12-07 10:54 | PCM.DCSUM1 ---
Discharge Summary - Hospital Course Brief History: 84-year-old male with history of controlled type 2 diabetes mellitus, active acute bullous pemphigoid on high-dose prednisone who presented with generalized weakness. He was admitted for management of a urinary tract infection as well as diabetes with significant hyperglycemia resulting from his prednisone therapy. Diagnosis: Stroke: No - Discharge Data Discharge Date: 12/07/19 Discharge Disposition: Home, W Home Health Agency 06 Condition: Fair - Referral to Home Health Date of Face to Face Encounter: 12/07/19 Reason for Homebound Status: Travel taxing due to difficulty utilizing walker because of severe skin disease affecting the hands Primary Care Physician: PCP None Skilled Need: Nursing to educate with dressing changes and insulin initiation. Physical therapy to improve strength and endurance. Home health aide to assist with bathing - Discharge Diagnosis/Problem(s) (1) Bullous pemphigoid SNOMED Code(s): 30306685 ICD Code: L12.0 - BULLOUS PEMPHIGOID Status: Acute Current Visit: Yes (2) Stage III chronic kidney disease SNOMED Code(s): 977453833 ICD Code: N18.3 - CHRONIC KIDNEY DISEASE, STAGE 3 (MODERATE) Status: Chronic Current Visit: No (3) Diabetes mellitus type 2 with complications SNOMED Code(s): 18417310, 399219105 ICD Code: E11.8 - TYPE 2 DIABETES MELLITUS WITH UNSPECIFIED COMPLICATIONS Status: Chronic Current Visit: No (4) Hyperkalemia SNOMED Code(s): 49026992 ICD Code: E87.5 - HYPERKALEMIA Status: Acute Current Visit: No - Patient Summary/Data Consults: Consultations 12/03/19 17:34 PT Evaluation and Treatment [CONS] Routine Please Evaluate and Treat. PT Reason for Consult: Weakness This query below is only for informational purposes and is not editable. Recommended Follow-up Testing/Procedures: Follow-up with primary care-patient requested local provider to establish care with, Dr. Richardson was recommended Patient requesting a second opinion regarding his bullous pemphigoid. A referral has been placed to [facility] in [place] Hospital Course: Catracho presented to the emergency room with acute generalized weakness after falling at home. He had recently been started on high-dose prednisone to treat a third flare of bullous pemphigoid. Work-up in the emergency room revealed a urinary tract infection as well as evidence for significant hyperglycemia with a blood sugar of more than 500. He was very weak and somewhat dehydrated. He was started on antibiotics as well as additional insulin and admitted to the hospital for further management. Over the next couple of days he did make improvements with both the urinary tract infection and the diabetes. He tolerated antibiotics and was transitioned to oral ciprofloxacin based on culture results after Serratia was identified. His blood sugars trended down over the course of the hospital stay with the addition of bedtime Lantus. This was titrated up to 30 units at bedtime with decent control at the time of discharge. He has received instruction of about how to administer the insulin and monitor his blood sugars. He will need 2 additional days of antibiotic therapy after hospital discharge. He does have a prescription for insulin at the time of discharge as well. Regarding the acute bullous pemphigoid, patient was having difficulty with mostly his lesions on his hands. The lesions on his face and upper body seem to be healing fairly well and are dry. The hands are still open and weeping. We have transitioned to a Vaseline gauze dressing with good results. Patient reports increased flexibility of the fingers and decreased pain with this dressing management system. He will likely need these wound care recommendations for another week or 2 after hospital discharge as his hands continue to improve. There have been no new pemphigoid lesions noted. He does have a prednisone taper provided by the die sinker who diagnosed the recurrent episode. He is interested in a second opinion regarding his pemphigoid because this is his third episode of the skin disease and this seems to be the worst so far. He is currently being treated with systemic and topical corticosteroids. Topical steroids so far have been limited to his hands. Also noted during the hospital stay was acute urinary retention which I suspect is related to his urinary tract infection. He did require a Ruby catheter to be placed with a bladder scan of nearly 800 mL. We did start him on tamsulosin. The plan is to leave the catheter in place for about 2 weeks while he is on the tamsulosin and allowing the inflammation from the infection to resolve. I would expect that the catheter can be safely removed in 2 weeks time. He did receive training about catheter cares prior to hospital discharge. - Patient Instructions Diet: Diabetic Diet Activity: As Tolerated Showering/Bathing: May Shower Wound/Incision Care: Change Dressing Daily Notify Provider of: Fever, Increased Pain Other/Special Instructions: 1. Dressing change - this should be performed once daily. Please remove the old dressing each morning. You may gently remove any skin debris or cleanse lightly with water or saline. Cover any open areas with Vaseline gauze. Secure the Vaseline gauze with Kerlix. This dressing may be changed more than once daily if needed because of soiling. 2. Take 30 units of lantus each night around 9 pm. This dose may need adjustment depending on your prednisone dosing and dietary changes at home. You can discuss this at your follow-up appointment. 3. I have placed a referral to home health care. They will help ease your transition home by providing nursing, physical therapy and home health aide services. 4. Take tamsulosin (Flomax) once daily while you have the Ruby catheter in place. This should help maximize the chance for successful removal of the catheter in 2 weeks. 5. Leave ruby catheter in place for 2 weeks. Hopefully after this period of time the inflammation caused by the infection will have resolved and the catheter can be successfully removed. 6. Take ciprofloxacin 500 mg twice daily for 3 more doses. Your first dose outside of the hospital will be due tonight. This is an antibiotic to complete the treatment for your bladder infection. - Discharge Plan *PRESCRIPTION DRUG MONITORING PROGRAM REVIEWED*: Not Applicable *COPY OF PRESCRIPTION DRUG MONITORING REPORT IN PATIENT KYLE: Not Applicable Prescriptions/Med Rec: Ciprofloxacin [Ciprofloxacin HCl] 500 mg PO BID #3 tablet Clobetasol [Clobetasol 0.05%] 1 applic TOP BID #5 tube Insulin Glarg,Human.Rec.Analog [Lantus Solostar] 30 units SUBCUT BEDTIME #4 pen Tamsulosin [Flomax] 0.4 mg PO PCBREAKFAST #14 cap.er Home Medications: Home Meds Carvedilol [Coreg] 6.25 mg PO BID 05/04/17 [History] Cholecalciferol (Vitamin D3) [Vitamin D3] 1,000 units PO DAILY 05/04/17 [History ] Multivitamin [Multivitamins] 1 mg PO DAILY 05/04/17 [History] Pramoxine HCl/Menthol [[place] Med Anti-Itch] 2 gm TOP ASDIRECTED PRN [History] diphenhydrAMINE HCl [Benadryl] 25 - 50 mg PO BEDTIME 05/04/17 [History] metFORMIN [Glucophage] 1,000 mg PO BID 05/04/17 [History] Alogliptin Benzoate [Alogliptin] 25 mg PO DAILY 12/03/19 [History] Aspirin [Halfprin] 81 mg PO DAILY 12/03/19 [History] Ferrous Sulfate [Ferosul] 325 mg PO DAILY 12/03/19 [History] Prednisone [IJD: predniSONE] 35 mg PO DAILY 12/03/19 [History] Ranitidine HCl [Ranitidine] 150 mg PO DAILY 12/03/19 [History] lisinopriL [Lisinopril] 5 mg PO DAILY 12/03/19 [History] Ciprofloxacin [Ciprofloxacin HCl] 500 mg PO BID #3 tablet 12/07/19 [Rx] Clobetasol [Clobetasol 0.05%] 1 applic TOP BID #5 tube 12/07/19 [Rx] Insulin Glarg,Human.Rec.Analog [Lantus Solostar] 30 units SUBCUT BEDTIME #4 pen 12/07/19 [Rx] Tamsulosin [Flomax] 0.4 mg PO PCBREAKFAST #14 cap.er 12/07/19 [Rx] Oxygen Therapy Mode: Room Air Patient Handouts: Bullous Pemphigoid Referrals: Katerine Richardson MD [Ordering Only Provider] - 12/13/19 1:30 pm - Discharge Summary/Plan Comment DC Time >30 min.: Yes (40-setting up home health care and wound care) - Patient Data Vitals - Most Recent: Last Vital Signs Temp 37.1 C 12/07/19 07:49 Pulse 72 12/07/19 07:55 Resp 16 12/07/19 07:49 BP 120/55 L 12/07/19 08:03 Pulse Ox 99 12/07/19 07:49 Weight - Most Recent: 82.191 kg I&O - Last 24 hours: Intake & Output 12/06/19 12/07/19 12/07/19 22:59 06:59 14:59 Intake Total 360 700 Output Total 100 1000 Balance 260 -1000 700 Med Orders - Current: Current Medications Acetaminophen (Tylenol) 650 mg PO Q4H PRN PRN Reason: Pain (Mild 1-3)/fever Last Admin: 12/04/19 01:26 Dose: 650 mg Alogliptin Benzoate (Alogliptin) 25 mg PO DAILY [facility] Last Admin: 12/07/19 08:02 Dose: 25 mg Aspirin (Halfprin) 81 mg PO DAILY [facility] Last Admin: 12/07/19 08:03 Dose: 81 mg Carvedilol (Coreg) 6.25 mg PO BIDMEALS [facility] Last Admin: 12/07/19 07:55 Dose: 6.25 mg Ciprofloxacin (Ciprofloxacin Hcl) 500 mg PO BID [facility] Last Admin: 12/07/19 08:02 Dose: 500 mg Clobetasol Propionate (Temovate 0.05% Crm) 0 gm TOP BID [facility] Last Admin: 12/07/19 09:52 Dose: 1 applic Dextrose (Glutose 15) 15 gm PO ONETIME PRN PRN Reason: Hypoglycemia Dextrose/Water (Dextrose 50% In Water) 50 ml IV ONETIME PRN PRN Reason: Hypoglycemia Diphenhydramine HCl (Benadryl) 25 mg PO BEDTIME [facility] Last Admin: 12/06/19 21:18 Dose: 25 mg Enoxaparin Sodium (Lovenox) 40 mg SUBCUT Q24H [facility] Last Admin: 12/06/19 21:12 Dose: 40 mg Famotidine (Pepcid) 20 mg PO DAILY [facility] Last Admin: 12/07/19 08:03 Dose: 20 mg Insulin Glargine (Lantus Solostar) 30 units SUBCUT BEDTIME [facility] Last Admin: 12/06/19 21:15 Dose: 30 units Insulin Human Lispro (Humalog) 0 unit SUBCUT QIDACANDBED [facility]; Protocol Last Admin: 12/07/19 07:56 Dose: 1 units Lactobacillus Rhamnosus (Culturelle) 1 cap PO BID [facility] Last Admin: 12/07/19 08:02 Dose: 1 cap Lisinopril (Prinivil) 5 mg PO DAILY [facility] Last Admin: 12/07/19 08:03 Dose: 5 mg Metformin HCl (Glucophage) 1,000 mg PO BIDMEALS [facility] Last Admin: 12/07/19 07:56 Dose: 1,000 mg Ondansetron HCl (Zofran) 4 mg IV Q4H PRN PRN Reason: Nausea/Vomiting Oxycodone HCl (Oxycodone) 5 mg PO Q4H PRN PRN Reason: Pain (moderate 4-6) Last Admin: 12/06/19 21:10 Dose: 5 mg Polyethylene Glycol (Miralax) 17 gm PO DAILY PRN PRN Reason: Constipation Prednisone 20 mg/ Prednisone (10 mg/ Prednisone 5 mg) 35 mg PO DAILY [facility] Last Admin: 12/07/19 08:03 Dose: 35 mg Tamsulosin HCl (Flomax) 0.4 mg PO PCBREAKFAST [facility] Last Admin: 12/07/19 08:02 Dose: 0.4 mg Triamcinolone Acetonide (Kenalog 0.1% Crm) 0 gm TOP TID [facility] Last Admin: 12/07/19 09:51 Dose: 1 applic Discontinued Medications Clobetasol Propionate (Clobetasol 0.05%) 0 gm TOP BID [facility] Last Admin: 12/04/19 08:24 Dose: 1 dose Enoxaparin Sodium (Lovenox) 40 mg SUBCUT DAILY [facility] Last Admin: 12/03/19 19:55 Dose: 40 mg Sodium Chloride (Normal Saline) 1,000 mls @ 1,000 mls/hr IV ASDIRECTED [facility] Last Admin: 12/03/19 15:12 Dose: 1,000 mls/hr Ceftriaxone Sodium 1 gm/ (Sodium Chloride) 50 mls @ 100 mls/hr IV Q24H [facility] Last Admin: 12/04/19 18:45 Dose: 100 mls/hr Sodium Chloride (Normal Saline) 1,000 mls @ 125 mls/hr IV ASDIRECTED [facility] Last Admin: 12/04/19 08:57 Dose: 125 mls/hr Insulin Glargine (Lantus Solostar) 16 units SUBCUT BEDTIME [facility] Last Admin: 12/03/19 22:37 Dose: 16 units Insulin Glargine (Lantus Solostar) 24 units SUBCUT BEDTIME [facility] Last Admin: 12/05/19 21:46 Dose: 24 units Insulin Human Lispro (Humalog) 10 unit SUBCUT ONETIME ONE Stop: 12/03/19 22:03 Last Admin: 12/03/19 22:42 Dose: Not Given Insulin Human Regular (Humulin R) 8 unit IVPUSH ONETIME ONE Stop: 12/03/19 15:40 Last Admin: 12/03/19 16:01 Dose: 8 units Methylprednisolone Sodium Succinate (Solu-Medrol) 62.5 mg IVPUSH ONETIME ONE Stop: 12/03/19 14:45 Last Admin: 12/03/19 15:12 Dose: 62.5 mg Clobetasol Prop Oint (0.05% (Ptom)) 0 each TOP BID [facility] Last Admin: 12/05/19 10:14 Dose: 1 each Triamcinolone Acetonide (Triamcinolone Acetonide 0.1% Crm) 0 gm TOP TID [facility] Last Admin: 12/05/19 14:05 Dose: 15 gm
[2019-12-07 11:55] VITALS: BP 114/36
== END 2019-12-07 14:10 | disposition home health service (06) | DRG 638 ==
LOC: JP.ED 14:28 → JP.MS 16:40
PROVIDERS: ADMIT Hospitalist; ATTEND Internal Medicine
DX: R53.1 Weakness (principal); E11.65 Type 2 diabetes mellitus with hyperglycemia; N39.0 Urinary tract infection, site not specified; L12.0 Bullous pemphigoid; E86.0 Dehydration; H91.90 Unspecified hearing loss, unspecified ear; I10 Essential (primary) hypertension; H54.7 Unspecified visual loss; G89.29 Other chronic pain; I12.9 Hypertensive chronic kidney disease with stage 1 through stage 4 chronic kidney disease, or unspecified chronic kidney disease; N18.3 Chronic kidney disease, stage 3 (moderate); M54.9 Dorsalgia, unspecified; R33.9 Retention of urine, unspecified; E87.5 Hyperkalemia; B96.89 Other specified bacterial agents as the cause of diseases classified elsewhere; T38.0X5A Adverse effect of glucocorticoids and synthetic analogues, initial encounter; E11.22 Type 2 diabetes mellitus with diabetic chronic kidney disease; Z96.659 Presence of unspecified artificial knee joint; Z90.49 Acquired absence of other specified parts of digestive tract; Z98.890 Other specified postprocedural states; Z79.82 Long term (current) use of aspirin; Z87.891 Personal history of nicotine dependence; Z88.5 Allergy status to narcotic agent; Z79.899 Other long term (current) drug therapy; Z79.84 Long term (current) use of oral hypoglycemic drugs; Z79.52 Long term (current) use of systemic steroids
CPT/HCPCS: 36415; 80053; 81001; 85025; 87086; 87088; 87186; 99284; J1815; J2930; J7030; 51702; 80048; 82962; 96361; 96374; 97110-GP; 97162-GP; 99285-25; A9270-GY; J0696; J1650; J7050

== ENCOUNTER 2020-03-28 17:52 | Inpatient (IN) | payer MEDICARE, OTHER ==
[2020-03-28] MEDS ORDERED: Sodium Chloride 0.9% 10 ML Syringe FLUSH PRN (18:53)
[2020-03-28] MEDS ORDERED: LORazepam 2 MG/ML SDV IVPUSH PRN (18:53)
[2020-03-28] MEDS ORDERED: Magnesium Hydroxide 400 MG/5 ML Susp 30 ML Cup PO PRN (18:53)
[2020-03-28] MEDS ORDERED: Ondansetron 4 MG/2 ML SDV IV PRN (18:53)
[2020-03-28] MEDS ORDERED: Albuterol 0.083% 2.5 MG/3 ML Neb Soln NEB PRN (18:53)
[2020-03-28] MEDS ORDERED: Acetaminophen 325 MG Tab PO PRN (18:53)
[2020-03-28] MEDS ORDERED: Ondansetron 4 MG Tab.DIS PO PRN (18:53)
--- NOTE | 2020-03-28 19:04 | PCM.HP.2 ---
H&P History of Present Illness - General Date of Service: 03/28/20 Admit Problem/Dx: Admission Diagnosis/Problem Admission Diagnosis/Problem CHF, Congestive heart failure Source of Information: Patient, Provider History Limitations: Reports: No Limitations - History of Present Illness Initial Comments - Free Text/Narative: CC: I'm weak HPI: Catracho presented to the clinic today with progressive weakness and increasing lower extremity edema. Symptoms have progressed over the past 1 to 2 weeks to the point that he is having more trouble getting around. He did have a fall earlier in the day but did not sustain any injuries. He has noted a 30 pound weight gain over the past few months and very impressive swelling that extends all the way up to his waist involving both legs. He did have the lower legs wrapped yesterday to help treat some chronic lower extremity ulcers. He has had a few episodes of orthopnea and he does note increasing dyspnea with exertion. He is more fatigued than usual. He has not had any fevers or chills. He has only a rare cough. No recent episodes of chest pain. No nausea or abdominal pain. No change in bowel or bladder habits. No sick contacts or travel. In the clinic today he was noted to be in atrial fibrillation with a rapid ventricular response and a rate in the 120s. Chest x-ray suggested some pulmonary vascular congestion. There was concern for developing congestive heart failure given his significant edema. He was sent to the hospital for direct admission. - Related Data Allergies/Adverse Reactions: Allergies Allergy/AdvReac Type Severity Reaction Status Date / Time codeine Allergy Anxiety Verified 03/28/20 18:20 Home Medications: Home Meds Cholecalciferol (Vitamin D3) [Vitamin D3] 1,000 units PO DAILY 05/04/17 [History ] Multivitamin [Multivitamins] 1 mg PO DAILY 05/04/17 [History] Pramoxine HCl/Menthol [[place] Med Anti-Itch] 2 gm TOP ASDIRECTED PRN [History] carvediloL [Coreg] 6.25 mg PO BID 05/04/17 [History] metFORMIN [Glucophage] 1,000 mg PO BID 05/04/17 [History] Aspirin [Halfprin] 81 mg PO DAILY 12/03/19 [History] Ferrous Sulfate [Ferosul] 325 mg PO DAILY 12/03/19 [History] Prednisone [IJD: predniSONE] 20 mg PO DAILY 12/03/19 [History] Insulin Glarg,Human.Rec.Analog [Lantus Solostar] 30 units SUBCUT BEDTIME #4 pen 12/07/19 [Rx] Tamsulosin [Flomax] 0.4 mg PO PCBREAKFAST #14 cap.er 12/07/19 [Rx] Ezetimibe 10 mg PO DAILY 03/28/20 [History] Mupirocin Cream [Bactroban Crm] 30 gm .XX ASDIRECTED 03/28/20 [History] Triamcinolone Acetonide [Triamcinolone Acetonide 0.1% Crm] 1 applic .XX BID 12/16 [History] glipiZIDE [Glucotrol] 5 mg PO BID 03/28/20 [History] Past Medical History HEENT History: Reports: Hard of Hearing, Impaired Vision Cardiovascular History: Reports: Hypertension Gastrointestinal History: Reports: None Musculoskeletal History: Reports: Back Pain, Chronic Endocrine/Metabolic History: Reports: Diabetes, Type II Hematologic History: Reports: Blood Transfusion(s), Other (See Below) 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 Immunologic History: Reports: None Oncologic (Cancer) History: Reports: None Dermatologic History: Reports: Other (See Below) Other Dermatologic History: bullosis - Infectious Disease History Infectious Disease History: Reports: Chicken Pox - Past Surgical History GI Surgical History: Reports: Cholecystectomy Musculoskeletal Surgical History: Reports: Knee Replacement, Shoulder Surgery Social & Family History - Family History Family Medical History: Noncontributory Neurological: Reports: CVA - Tobacco Use Smoking Status *Q: Never Smoker - Caffeine Use Caffeine Use: Reports: Coffee - Recreational Drug Use Recreational Drug Use: No H&P Review of Systems - Review of Systems: Review Of Systems: See Below Free Text/Narrative: A complete 12 point review of systems was obtained. Pertinent positives and negatives are noted in the history of present illness. All other systems were reviewed and were negative except as noted. Exam - Exam Exam: See Below - Vital Signs Vital Signs: Last Vital Signs Temp 36.2 C 03/28/20 18:10 Pulse Resp 12 03/28/20 18:10 BP 114/72 03/28/20 18:10 Pulse Ox 96 03/28/20 18:10 Weight: 103.873 kg - Exam Quality Assessment: No: Supplemental Oxygen General: Alert, Oriented, Cooperative. No: Mild Distress HEENT: Conjunctiva Clear, Mucosa Moist & [place]. No: Scleral Icterus Neck: Supple, JVD Lungs: Clear to Auscultation, Normal Respiratory Effort Cardiovascular: Irregular Rhythm, Tachycardia, Systolic Murmur. No: Diastolic Murmur GI/Abdominal Exam: Normal Bowel Sounds, Soft, Non-Tender, No Distention Back Exam: Full Range of Motion. No: Muscle Spasm Extremities: Pedal Edema (Massive pitting edema to the waist bilaterally), Other (Both lower legs wrapped with Coflex from the foot to just above mid goff) . No: Increased Warmth Skin: Warm, Dry, Rash (Multiple areas of scarring from bullous pemphigoid. Most of these are well-healed) Neuro Extensive - Mental Status: Alert, Oriented x3, Nl Response to Commands Neuro Extensive - Motor, Sensory, Reflexes: No: Dysarthria, Abnormal Motor, Tremor Psychiatric: Alert, Normal Affect - Patient Data Imaging Impressions Last 24 hrs: Chest [id number] heart size and pulmonary vascular congestion. No obvious mass or infiltrate. Possible tiny right pleural effusion Sepsis Event Note - Evaluation Sepsis Screening Result: No Definite Risk - Focused Exam Vital Signs: Vital Signs Temp Resp BP Pulse Ox 03/28/20 18:10 36.2 C 12 114/72 96 Date Exam was Performed: 03/28/20 Time Exam was Performed: 19:25 *Q Meaningful Use (ADM) - VTE Risk Assess *Q Each Risk Factor Represents 1 Point: Swollen Legs, Current, Obesity ( BMI > 25 kg/m2), Congestive heart failure (CHF) Total Score 1 Point Risk Factors: 3 Each Risk Factor Represents 2 Points: None Total Score 2 Point Risk Factors: 0 Each Risk Factor Represents 3 Points: Age 75 Years or Greater Total Score 3 Point Risk Factors: 3 Each Risk Factor Represents 5 Points: None Total Score 5 Point Risk Factors: 0 Venous Thromboembolism Risk Factor Score *Q: 6 - Problem List (1) Congestive heart failure SNOMED Code(s): 65844397 ICD Code: I50.9 - HEART FAILURE, UNSPECIFIED Status: Acute Current Visit : Yes Qualifiers: Heart failure type: unspecified Heart failure chronicity: acute Qualified Code(s): I50.9 - Heart failure, unspecified (2) Aortic stenosis, moderate SNOMED Code(s): 47380755 ICD Code: I35.0 - NONRHEUMATIC AORTIC (VALVE) STENOSIS Status: Acute Current Visit: Yes (3) Atrial fibrillation with rapid ventricular response SNOMED Code(s): 057073267535664 ICD Code: I48.91 - UNSPECIFIED ATRIAL FIBRILLATION Status: Acute Current Visit: Yes (4) Bullous pemphigoid SNOMED Code(s): 58656856 ICD Code: L12.0 - BULLOUS PEMPHIGOID Status: Acute Current Visit: No (5) Hyperkalemia SNOMED Code(s): 17365296 ICD Code: E87.5 - HYPERKALEMIA Status: Acute Current Visit: No (6) Diabetes mellitus type 2 with complications SNOMED Code(s): 26397017, 598025394 ICD Code: E11.8 - TYPE 2 DIABETES MELLITUS WITH UNSPECIFIED COMPLICATIONS Status: Chronic Current Visit: No Problem List Initiated/Reviewed/Updated: Yes Orders Last 24hrs: Active Orders 24 hr Category Date Time Status Patient Status [ADT] Routine ADT 03/28/20 18:53 Ordered Blood Glucose Check, Bedside [RC] BIDMEALS Care 03/28/20 18:53 Ordered Cardiac Monitoring [RC] CONTINUOUS Care 03/28/20 18:54 Ordered Communication Order [RC] PRN Care 03/28/20 18:53 Ordered Communication Order [RC] PRN Care 03/28/20 18:53 Ordered Diabetes Education [RC] Click to Edit Care 03/28/20 18:53 Ordered Height and Weight [RC] DAILY Care 03/28/20 18:53 Ordered Insert Croft Catheter [Insert Urinary Catheter] [OM.PC] Care 03/28/20 19:00 Ordered Q24H Intake and Output [RC] QSHIFT Care 03/28/20 18:53 Ordered Notify Provider Vital Signs [RC] ASDIRECTED Care 03/28/20 18:53 Ordered Notify Provider [RC] PRN Care 03/28/20 18:55 Ordered Oxygen Therapy [RC] PRN Care 03/28/20 18:53 Ordered Pulse Oximetry [RC] CONTINUOUS Care 03/28/20 18:54 Ordered RT Aerosol Therapy [RC] ASDIRECTED Care 03/28/20 18:55 Ordered Up With Assistance [RC] ASDIRECTED Care 03/28/20 18:53 Ordered Urinary Catheter Assessment [RC] ASDIRECTED Care 03/28/20 18:56 Ordered VTE/DVT Education [RC] Per Unit Routine Care 03/28/20 18:53 Ordered Vital Signs [RC] Q1HR Care 03/28/20 18:53 Ordered PT Evaluation and Treatment [CONS] Routine Cons 03/28/20 18:55 Ordered 2 Gram Sodium Diet [DIET] Diet 03/28/20 Dinner Ordered Echo Comp wo Cont [US] Routine Exams 03/30/20 07:00 Ordered BASIC METABOLIC PANEL,BMP [CHEM] AM Lab 03/29/20 05:11 Ordered CBC W/O DIFF,HEMOGRAM [HEME] AM Lab 03/29/20 05:11 Ordered TSH ULTRASENSITIVE [CHEM] AM Lab 03/29/20 05:11 Ordered Acetaminophen [Tylenol] Med 03/28/20 18:53 Ordered 650 mg PO Q4H PRN Albuterol [Proventil Neb Soln] Med 03/28/20 18:53 Ordered 2.5 mg NEB Q4H PRN Aspirin [Halfprin] Med 03/29/20 09:00 Ordered 81 mg PO DAILY Diltiazem 100 MG in Normal Saline Adv @ 5 MG/HR(100ml) Med 03/28/20 19:00 Ordered Diltiazem [Cardizem] 100 mg Sodium Chloride 0.9% [Normal Saline] 100 ml IV TITRATE Docusate Sodium/Sennosides [Senna Plus] Med 03/28/20 18:53 Ordered 1 tab PO BID PRN Enoxaparin [Lovenox] Med 03/29/20 09:00 Ordered 40 mg SUBCUT DAILY Ezetimibe [Zetia] Med 03/29/20 09:00 Ordered 10 mg PO DAILY Furosemide [Lasix] Med 03/29/20 08:00 Once 40 mg IVPUSH ONETIME ONE Insulin Glarg,Human.Rec.Analog [LantUS Solostar] Med 03/28/20 21:00 Ordered 30 units SUBCUT BEDTIME LORazepam [Ativan] Med 03/28/20 18:53 Ordered 0.5 mg IVPUSH Q4H PRN Magnesium Hydroxide [Milk of Magnesia] Med 03/28/20 18:53 Ordered 30 ml PO Q12H PRN Melatonin Med 03/28/20 21:00 Ordered 9 mg PO BEDTIME Ondansetron [Zofran ODT] Med 03/28/20 18:53 Ordered 4 mg PO Q6H PRN Ondansetron [Zofran] Med 03/28/20 18:53 Ordered 4 mg IV Q6H PRN Sodium Chloride 0.9% [Saline Flush] Med 03/28/20 18:53 Ordered 10 ml FLUSH ASDIRECTED PRN Tamsulosin [Flomax] Med 03/29/20 09:00 Ordered 0.4 mg PO PCBREAKFAST carvediloL [Coreg] Med 03/28/20 21:00 Ordered 6.25 mg PO BID glipiZIDE [Glucotrol] Med 03/29/20 07:30 Ordered 5 mg PO BIDAC metFORMIN [Glucophage] Med 03/29/20 07:30 Ordered 1,000 mg PO BIDAC predniSONE Med 03/29/20 09:00 Ordered 20 mg PO DAILY Saline Lock Insert [OM.PC] Urgent Oth 03/28/20 18:53 Ordered Resuscitation Status Routine Resus Stat 03/28/20 18:53 Ordered Assessment/Plan Comment:: ASSESSMENT AND PLAN - Congestive heart failure, acute-previous ejection fraction was normal. He does have a history of moderately severe aortic stenosis. Unclear if the atrial fibrillation set off the heart failure or vice versa. No evidence for infection. 30 pound weight gain. Kidney function down slightly from baseline. No evidence for ischemia. -IV furosemide 40 mg x 1 now and repeat in the morning -Croft catheter for strict intake and output monitoring -Continue beta-amanda -Echocardiogram when available -Daily weights Atrial fibrillation with rapid ventricular response-new onset. Unclear duration. Unclear if this set off heart failure or vice versa. No palpitations. -Diltiazem drip with no bolus -Continue beta-amanda Hyperkalemia-mild. 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 A1c is just over 7. -Continue home medications Stage III chronic kidney disease-creatinine slightly elevated from baseline. This will need close monitoring during diuresis. Maintenance issues - - DVT prophylaxis -enoxaparin - GI prophylaxis -not indicated - Nutrition -low-sodium - Croft catheter -placed for strict intake and output monitoring in a critical patient with congestive heart failure CODE STATUS -DNR/DNI Admission justification -this patient will be admitted for inpatient services and is medically appropriate meeting medical necessity for inpatient admission as outlined in my documentation. I reasonably expect the patient will require inpatient services that span a period time over 2 midnights. I reasonably expect this patient to be discharged or transferred within 96 hours after admission to the [facility]. Disposition -I would anticipate discharge home after the hospital stay Primary care physician -Dr. Katerine Vargas M.D. - Mortality Measure Prognosis:: Good
[2020-03-28] MEDS ORDERED: Lidocaine 2% Jelly 10 ML Urojet MUCMEM ONE (19:19)
[2020-03-28] MEDS ORDERED: Furosemide 40 MG/4 ML VIAL IVPUSH ONE (19:19)
[2020-03-28] MEDS: Diltiazem 100 MG in Sodium Chloride 0.9% 100 ML IV SCH (20:02)
[2020-03-28] MEDS: Carvedilol 6.25 MG Tab PO SCH (20:54)
[2020-03-28] MEDS: Insulin Glargine,Human Rec. Analog 100 Units/ML 3 ML Pen SUBCUT SCH (22:07)
[2020-03-29] MEDS: Melatonin 3 MG Tab PO SCH ×2 (01:21→21:18)
[2020-03-29] MEDS: Diltiazem 100 MG in Sodium Chloride 0.9% 100 ML IV SCH (05:12)
[2020-03-29] MEDS ORDERED: metFORMIN 500 MG Tab PO SCH (07:30)
[2020-03-29] MEDS ORDERED: Furosemide 40 MG/4 ML VIAL IVPUSH ONE ×2 (08:00→15:00)
[2020-03-29] MEDS: glipiZIDE 5 MG Tab PO SCH ×2 (08:27→16:06)
[2020-03-29] MEDS: Carvedilol 6.25 MG Tab PO SCH (08:28)
[2020-03-29] MEDS: Tamsulosin 0.4 MG Cap.ER PO SCH (08:29)
[2020-03-29] MEDS: Enoxaparin 40 MG/0.4 ML Syringe SUBCUT SCH (08:29)
[2020-03-29] MEDS ORDERED: predniSONE 20 MG Tab PO SCH (09:00)
[2020-03-29] MEDS ORDERED: Ezetimibe 10 MG Tab PO SCH (09:00)
[2020-03-29] MEDS ORDERED: Aspirin 81 MG Tab.EC PO SCH (09:00)
--- NOTE | 2020-03-29 09:58 | PCM.PN ---
- General Info Date of Service: 03/29/20 Subjective Update: There were no acute events overnight. We have achieved good rate control with the diltiazem infusion. Good response to diuresis and his net fluid balance was negative by about 1-1/2 L. Edema is quite a bit better. No shortness of breath or chest pain reported. Strength is a little better. Appetite is good. Kidney function stable. Functional Status: Reports: Pain Controlled, Tolerating Diet - Review of Systems General: Reports: Weakness. Denies: Fever - Patient Data Vitals - Most Recent: Last Vital Signs Temp 37 C 03/29/20 09:00 Pulse 90 03/29/20 09:15 Resp 16 03/29/20 09:15 BP 136/61 03/29/20 09:15 Pulse Ox 95 03/29/20 09:15 Weight - Most Recent: 103.873 kg I&O - Last 24 Hours: Intake & Output 03/28/20 03/29/20 03/29/20 22:59 06:59 14:59 Intake Total 120 249 Output Total 1635 200 Balance 120 -1386 -200 Lab Results Last 24 Hours: Laboratory Results - last 24 hr 03/28/20 03/29/20 03/29/20 Range/Units 21:37 05:57 05:57 WBC 6.5 (4.5-11.0) K/uL RBC 4.20 L (4.30-5.90) M/uL Hgb 11.3 L (12.0-15.0) g/dL Hct 38.2 L (40.0-54.0) % MCV 91 (80-98) fL MCH 27 (27-31) pg MCHC 30 L (32-36) % Plt Count 226 (150-400) K/uL Sodium 143 (140-148) mmol/L Potassium 4.1 (3.6-5.2) mmol/L Chloride 106 (100-108) mmol/L Carbon Dioxide 31 (21-32) mmol/L Anion Gap 5.9 (5.0-14.0) mmol/L BUN 22 H (7-18) mg/dL Creatinine 1.2 (0.8-1.3) mg/dL Est Cr Clr Drug Dosing 48.50 mL/min Estimated GFR (MDRD) 57 L (>60) Glucose 144 H (74-106) mg/dL Calcium 9.0 (8.5-10.1) mg/dL Free T4 (0.76-1.46) ng/dL TSH, Ultra Sensitive 9.267 H (0.358-3.740) uIU/mL Urine Color [place] A (YELLOW) Urine Appearance Clear (CLEAR) Urine pH 5.5 (5.0-8.0) Ur Specific [place] 1.025 (1.008-1.030) Urine Protein Negative (NEGATIVE) mg/dL Urine Glucose (UA) 250 H (NEGATIVE) mg/dL Urine Ketones Negative (NEGATIVE) mg/dL Urine Occult Blood Trace-intact H (NEGATIVE) Urine Nitrite Negative (NEGATIVE) Urine Bilirubin Negative (NEGATIVE) Urine Urobilinogen 0.2 (0.2-1.0) EU/dL Ur Leukocyte Esterase Negative (NEGATIVE) Urine RBC 0-5 (0-5) Urine WBC Not seen (0-5) Ur Epithelial Cells Not seen Amorphous Sediment Few Urine Bacteria Not seen Urine Mucus Not seen 03/29/20 Range/Units 08:36 WBC (4.5-11.0) K/uL RBC (4.30-5.90) M/uL Hgb (12.0-15.0) g/dL Hct (40.0-54.0) % MCV (80-98) fL MCH (27-31) pg MCHC (32-36) % Plt Count (150-400) K/uL Sodium (140-148) mmol/L Potassium (3.6-5.2) mmol/L Chloride (100-108) mmol/L Carbon Dioxide (21-32) mmol/L Anion Gap (5.0-14.0) mmol/L BUN (7-18) mg/dL Creatinine (0.8-1.3) mg/dL Est Cr Clr Drug Dosing mL/min Estimated GFR (MDRD) (>60) Glucose (74-106) mg/dL Calcium (8.5-10.1) mg/dL Free T4 0.92 (0.76-1.46) ng/dL TSH, Ultra Sensitive (0.358-3.740) uIU/mL Urine Color (YELLOW) Urine Appearance (CLEAR) Urine pH (5.0-8.0) Ur Specific [place] (1.008-1.030) Urine Protein (NEGATIVE) mg/dL Urine Glucose (UA) (NEGATIVE) mg/dL Urine Ketones (NEGATIVE) mg/dL Urine Occult Blood (NEGATIVE) Urine Nitrite (NEGATIVE) Urine Bilirubin (NEGATIVE) Urine Urobilinogen (0.2-1.0) EU/dL Ur Leukocyte Esterase (NEGATIVE) Urine RBC (0-5) Urine WBC (0-5) Ur Epithelial Cells Amorphous Sediment Urine Bacteria Urine Mucus Med Orders - Current: Current Medications Acetaminophen (Tylenol) 650 mg PO Q4H PRN PRN Reason: Pain (Mild 1-3)/fever Albuterol (Proventil Neb Soln) 2.5 mg NEB Q4H PRN PRN Reason: Shortness Of Breath/wheezing Aspirin (Halfprin) 81 mg PO DAILY [facility] Last Admin: 03/29/20 08:29 Dose: 81 mg Ezetimibe (Zetia) 10 mg PO DAILY [facility] Last Admin: 03/29/20 08:27 Dose: 10 mg Enoxaparin Sodium (Lovenox) 40 mg SUBCUT DAILY [facility] Last Admin: 03/29/20 08:29 Dose: 40 mg Glipizide (Glucotrol) 5 mg PO BIDAC [facility] Last Admin: 03/29/20 08:27 Dose: 5 mg Diltiazem HCl 100 mg/ Sodium (Chloride) 100 mls @ 5 mls/hr IV TITRATE [facility]; Protocol Stop: 03/29/20 12:00 Last Admin: 03/29/20 05:12 Dose: 15 mg/hr, 15 mls/hr Insulin Glargine (Lantus Solostar) 30 units SUBCUT BEDTIME [facility] Last Admin: 03/28/20 22:07 Dose: 30 unit Lorazepam (Ativan) 0.5 mg IVPUSH Q4H PRN PRN Reason: Nausea/Vomiting Magnesium Hydroxide (Milk Of Magnesia) 30 ml PO Q12H PRN PRN Reason: Constipation Melatonin (Melatonin) 9 mg PO BEDTIME [facility] Last Admin: 03/29/20 01:21 Dose: Not Given Metformin HCl (Glucophage) 1,000 mg PO BIDAC [facility] Last Admin: 03/29/20 08:28 Dose: 1,000 mg Ondansetron HCl (Zofran Odt) 4 mg PO Q6H PRN PRN Reason: Nausea able to take PO Ondansetron HCl (Zofran) 4 mg IV Q6H PRN PRN Reason: Nausea/Vomiting Prednisone (Prednisone) 20 mg PO DAILY [facility] Last Admin: 03/29/20 08:27 Dose: 20 mg Senna/Docusate Sodium (Senna Plus) 1 tab PO BID PRN PRN Reason: Constipation Sodium Chloride (Saline Flush) 10 ml FLUSH ASDIRECTED PRN PRN Reason: Keep Vein Open Tamsulosin HCl (Flomax) 0.4 mg PO PCBREAKFAST [facility] Last Admin: 03/29/20 08:29 Dose: 0.4 mg Discontinued Medications Carvedilol (Coreg) 6.25 mg PO BIDMEALS [facility] Last Admin: 03/29/20 08:28 Dose: 6.25 mg Furosemide (Lasix) 40 mg IVPUSH ONETIME ONE Stop: 03/29/20 08:01 Last Admin: 03/29/20 08:27 Dose: 40 mg Furosemide (Lasix) 40 mg IVPUSH ONETIME ONE Stop: 03/28/20 19:20 Last Admin: 03/28/20 20:02 Dose: 40 mg Lidocaine HCl (Xylocaine 2% Jelly) 10 ml MUCMEM ONETIME ONE Stop: 03/28/20 19:20 Last Admin: 03/28/20 20:53 Dose: 10 ml - Exam Quality Assessment: No: Supplemental Oxygen General: Alert, Oriented, Cooperative, No Acute Distress Lungs: Clear to Auscultation, Normal Respiratory Effort Cardiovascular: Regular Rate, Irregular Rhythm, Murmurs GI/Abdominal Exam: Soft, No Distention Extremities: Pedal Edema. No: Increased Warmth Skin: Warm, Dry Psy/Mental Status: Alert, Normal Affect Sepsis Event Note - Evaluation Sepsis Screening Result: No Definite Risk - Focused Exam Vital Signs: Vital Signs Temp Pulse Pulse Resp BP BP Pulse Ox 03/29/20 09:15 90 16 136/61 95 03/29/20 09:00 37 C 93 18 135/62 98 03/29/20 08:28 92 109/57 L 03/29/20 08:00 93 03/29/20 07:27 36.2 C 100 22 H 121/67 96 03/29/20 06:00 21 H 109/57 L 94 L 03/29/20 05:00 21 H 106/65 94 L 03/29/20 04:00 20 114/64 91 L 03/29/20 03:00 20 119/59 L 90 L 03/29/20 02:00 21 H 116/68 95 03/29/20 01:00 36.9 C 17 113/64 94 L 03/29/20 00:00 19 109/66 95 03/28/20 23:00 97 105/62 03/28/20 22:00 91 123/55 L Date Exam was Performed: 03/29/20 Time Exam was Performed: 14:19 - Problem List & Annotations (1) Congestive heart failure SNOMED Code(s): 16477061 Code(s): I50.9 - HEART FAILURE, UNSPECIFIED Status: Acute Current Visit: Yes Qualifiers: Heart failure type: unspecified Heart failure chronicity: acute Qualified Code(s): I50.9 - Heart failure, unspecified (2) Aortic stenosis, moderate SNOMED Code(s): 78114161 Code(s): I35.0 - NONRHEUMATIC AORTIC (VALVE) STENOSIS Status: Acute Current Visit: Yes (3) Atrial fibrillation with rapid ventricular response SNOMED Code(s): 870438432905497 Code(s): I48.91 - UNSPECIFIED ATRIAL FIBRILLATION Status: Acute Current Visit: Yes (4) Bullous pemphigoid SNOMED Code(s): 88076230 Code(s): L12.0 - BULLOUS PEMPHIGOID Status: Acute Current Visit: No (5) Hyperkalemia SNOMED Code(s): 45266387 Code(s): E87.5 - HYPERKALEMIA Status: Resolved Current Visit: No (6) Diabetes mellitus type 2 with complications SNOMED Code(s): 08729098, 302264047 Code(s): E11.8 - TYPE 2 DIABETES MELLITUS WITH UNSPECIFIED COMPLICATIONS Status: Chronic Current Visit: No - Problem List Review Problem List Initiated/Reviewed/Updated: Yes - My Orders Last 24 Hours: My Active Orders 03/28/20 18:53 Patient Status [ADT] Routine Blood Glucose Check, Bedside [RC] BIDMEALS Communication Order [RC] PRN Communication Order [RC] PRN Intake and Output [RC] QSHIFT Notify Provider Vital Signs [RC] ASDIRECTED Oxygen Therapy [RC] PRN Up With Assistance [RC] ASDIRECTED Vital Signs [RC] Q2H Acetaminophen [Tylenol] 650 mg PO Q4H PRN Albuterol [Proventil Neb Soln] 2.5 mg NEB Q4H PRN Docusate Sodium/Sennosides [Senna Plus] 1 tab PO BID PRN LORazepam [Ativan] 0.5 mg IVPUSH Q4H PRN Magnesium Hydroxide [Milk of Magnesia] 30 ml PO Q12H PRN Ondansetron [Zofran ODT] 4 mg PO Q6H PRN Ondansetron [Zofran] 4 mg IV Q6H PRN Sodium Chloride 0.9% [Saline Flush] 10 ml FLUSH ASDIRECTED PRN Saline Lock Insert [OM.PC] Urgent Resuscitation Status Routine 03/28/20 18:54 Cardiac Monitoring [RC] Q6H Pulse Oximetry [RC] CONTINUOUS 03/28/20 18:55 Notify Provider [RC] PRN RT Aerosol Therapy [RC] ASDIRECTED PT Evaluation and Treatment [CONS] Routine 03/28/20 18:56 Urinary Catheter Assessment [RC] ASDIRECTED 03/28/20 19:00 Diltiazem [Cardizem] 100 mg Sodium Chloride 0.9% [Normal Saline] 100 ml IV TITRATE 03/28/20 21:00 Insulin Glarg,Human.Rec.Analog [LantUS Solostar] 30 units SUBCUT BEDTIME Melatonin 9 mg PO BEDTIME 03/28/20 Dinner 2 Gram Sodium Diet [DIET] 03/29/20 07:30 glipiZIDE [Glucotrol] 5 mg PO BIDAC metFORMIN [Glucophage] 1,000 mg PO BIDAC 03/29/20 09:00 Aspirin [Halfprin] 81 mg PO DAILY Enoxaparin [Lovenox] 40 mg SUBCUT DAILY Ezetimibe [Zetia] 10 mg PO DAILY Tamsulosin [Flomax] 0.4 mg PO PCBREAKFAST predniSONE 20 mg PO DAILY 03/29/20 12:00 Diltiazem IR [Cardizem] 60 mg PO Q6HR 03/29/20 15:00 Furosemide [Lasix] 40 mg IVPUSH ONETIME ONE 03/29/20 17:00 carvediloL [Coreg] 12.5 mg PO BIDMEALS 03/30/20 05:00 BASIC METABOLIC PANEL,BMP [CHEM] Timed INR,PT,PROTHROMBIN TIME [COAG] Timed 03/30/20 07:00 Echo Comp wo Cont [US] Routine 03/30/20 08:00 Furosemide [Lasix] 40 mg IVPUSH DAILY - Plan Plan:: ASSESSMENT AND PLAN - Congestive heart failure, acute-previous ejection fraction was normal. He does have a history of moderately severe aortic stenosis. Good response to diuretics so far. Edema is quite a bit better. -IV furosemide 40 mg x 2 doses today -Continue beta-amanda with dose increase -Echocardiogram tomorrow -Daily weights -Sahil wraps so his legs are wrapped from the foot all the way to the knee Atrial fibrillation with rapid ventricular response-new onset. Unclear duration. Good rate control at 15 mg/h with the diltiazem infusion. 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 -Continue home medications Stage III chronic kidney disease-creatinine slightly improved compared to yesterday. Maintenance issues - - DVT prophylaxis -enoxaparin - GI prophylaxis -not indicated - Nutrition -low-sodium - Croft catheter -placement attempted but unsuccessful on 03/28 Disposition -I would anticipate discharge home after the hospital stay Win Vargas M.D.
[2020-03-29] MEDS: Diltiazem IR 30 MG Tab PO SCH ×2 (11:50→18:22)
[2020-03-29] MEDS: Carvedilol 12.5 MG Tab PO SCH (18:26)
[2020-03-29] MEDS: metFORMIN 500 MG Tab PO SCH (18:28)
[2020-03-29] MEDS: Insulin Glargine,Human Rec. Analog 100 Units/ML 3 ML Pen SUBCUT SCH (21:20)
[2020-03-30] MEDS: glipiZIDE 5 MG Tab PO SCH ×2 (07:33→17:33)
[2020-03-30] MEDS: Carvedilol 12.5 MG Tab PO SCH ×2 (07:34→17:32)
[2020-03-30] MEDS: Aspirin 81 MG Tab.EC PO SCH (07:35)
[2020-03-30] MEDS: metFORMIN 500 MG Tab PO SCH ×2 (07:35→17:32)
[2020-03-30] MEDS: Furosemide 40 MG/4 ML VIAL IVPUSH SCH ×2 (07:36→10:06)
[2020-03-30] MEDS: predniSONE 20 MG Tab PO SCH (07:36)
[2020-03-30] MEDS: Ezetimibe 10 MG Tab PO SCH (07:37)
[2020-03-30] MEDS: Enoxaparin 40 MG/0.4 ML Syringe SUBCUT SCH (10:06)
[2020-03-30] MEDS: Tamsulosin 0.4 MG Cap.ER PO SCH (10:06)
--- NOTE | 2020-03-30 10:54 | PCM.PN ---
- General Info Date of Service: 03/30/20 Subjective Update: There were no acute events overnight. Still a little weak but seems better today. No complaints of chest pain. No significant shortness of breath. No abdominal pain. Good response to diuresis again yesterday. Lower extremity edema is quite a bit better again today. No fevers. We had good rate control with the atrial fibrillation yesterday but that he had some bradycardia overnight so the diltiazem was stopped. Echocardiogram today showed severe aortic stenosis with a valve area less than 1 cm. He also has severe mitral regurgitation. His ejection fraction is normal. Functional Status: Reports: Pain Controlled, Tolerating Diet - Review of Systems General: Reports: Weakness Pulmonary: Denies: Shortness of Breath - Patient Data Vitals - Most Recent: Last Vital Signs Temp 36.3 C 03/30/20 08:00 Pulse 107 H 03/30/20 09:55 Resp 12 03/30/20 08:00 BP 103/54 L 03/30/20 08:00 Pulse Ox 94 L 03/30/20 08:00 Weight - Most Recent: 103.873 kg I&O - Last 24 Hours: Intake & Output 03/29/20 03/30/20 03/30/20 22:59 06:59 14:59 Intake Total 150 360 Output Total 900 250 Balance -750 -250 360 Lab Results Last 24 Hours: Laboratory Results - last 24 hr 03/30/20 03/30/20 Range/Units 05:31 05:31 PT 11.5 (9.5-12.0) sec INR 1.07 (0.80-1.20) Sodium 144 (140-148) mmol/L Potassium 4.0 (3.6-5.2) mmol/L Chloride 106 (100-108) mmol/L Carbon Dioxide 32 (21-32) mmol/L Anion Gap 5.6 (5.0-14.0) mmol/L BUN 27 H (7-18) mg/dL Creatinine 1.5 H (0.8-1.3) mg/dL Est Cr Clr Drug Dosing 38.80 mL/min Estimated GFR (MDRD) 44 L (>60) Glucose 169 H (74-106) mg/dL Calcium 8.8 (8.5-10.1) mg/dL Med Orders - Current: Current Medications Acetaminophen (Tylenol) 650 mg PO Q4H PRN PRN Reason: Pain (Mild 1-3)/fever Albuterol (Proventil Neb Soln) 2.5 mg NEB Q4H PRN PRN Reason: Shortness Of Breath/wheezing Aspirin (Halfprin) 81 mg PO DAILY@0800 [facility] Last Admin: 03/30/20 07:35 Dose: 81 mg Carvedilol (Coreg) 12.5 mg PO BID@0800,1800 [facility] Last Admin: 03/30/20 07:34 Dose: 12.5 mg Ezetimibe (Zetia) 10 mg PO DAILY@0800 [facility] Last Admin: 03/30/20 07:37 Dose: 10 mg Enoxaparin Sodium (Lovenox) 40 mg SUBCUT DAILY [facility] Last Admin: 03/30/20 10:06 Dose: 40 mg Glipizide (Glucotrol) 5 mg PO BIDAC [facility] Last Admin: 03/30/20 07:33 Dose: 5 mg Insulin Glargine (Lantus Solostar) 30 units SUBCUT BEDTIME [facility] Last Admin: 03/29/20 21:20 Dose: 30 unit Lorazepam (Ativan) 0.5 mg IVPUSH Q4H PRN PRN Reason: Nausea/Vomiting Magnesium Hydroxide (Milk Of Magnesia) 30 ml PO Q12H PRN PRN Reason: Constipation Melatonin (Melatonin) 9 mg PO BEDTIME [facility] Last Admin: 03/29/20 21:18 Dose: 9 mg Metformin HCl (Glucophage) 1,000 mg PO BID@0800,1800 [facility] Last Admin: 03/30/20 07:35 Dose: 1,000 mg Ondansetron HCl (Zofran Odt) 4 mg PO Q6H PRN PRN Reason: Nausea able to take PO Ondansetron HCl (Zofran) 4 mg IV Q6H PRN PRN Reason: Nausea/Vomiting Prednisone (Prednisone) 20 mg PO DAILY@0800 [facility] Last Admin: 03/30/20 07:36 Dose: 20 mg Senna/Docusate Sodium (Senna Plus) 1 tab PO BID PRN PRN Reason: Constipation Sodium Chloride (Saline Flush) 10 ml FLUSH ASDIRECTED PRN PRN Reason: Keep Vein Open Tamsulosin HCl (Flomax) 0.4 mg PO PCBREAKFAST [facility] Last Admin: 03/30/20 10:06 Dose: 0.4 mg Discontinued Medications Aspirin (Halfprin) 81 mg PO DAILY [facility] Last Admin: 03/29/20 08:29 Dose: 81 mg Carvedilol (Coreg) 6.25 mg PO BIDMEALS [facility] Last Admin: 03/29/20 08:28 Dose: 6.25 mg Diltiazem HCl (Cardizem) 60 mg PO Q6H [facility] Last Admin: 03/29/20 18:22 Dose: 60 mg Ezetimibe (Zetia) 10 mg PO DAILY [facility] Last Admin: 03/29/20 08:27 Dose: 10 mg Furosemide (Lasix) 40 mg IVPUSH ONETIME ONE Stop: 03/29/20 08:01 Last Admin: 03/29/20 08:27 Dose: 40 mg Furosemide (Lasix) 40 mg IVPUSH ONETIME ONE Stop: 03/28/20 19:20 Last Admin: 03/28/20 20:02 Dose: 40 mg Furosemide (Lasix) 40 mg IVPUSH ONETIME ONE Stop: 03/29/20 15:01 Last Admin: 03/29/20 16:01 Dose: 40 mg Furosemide (Lasix) 40 mg IVPUSH DAILY [facility] Last Admin: 03/30/20 10:06 Dose: Not Given Diltiazem HCl 100 mg/ Sodium (Chloride) 100 mls @ 5 mls/hr IV TITRATE [facility]; Protocol Stop: 03/29/20 12:00 Last Titration: 03/29/20 11:50 Dose: 0 mg/hr, 0 mls/hr Lidocaine HCl (Xylocaine 2% Jelly) 10 ml MUCMEM ONETIME ONE Stop: 03/28/20 19:20 Last Admin: 03/28/20 20:53 Dose: 10 ml Metformin HCl (Glucophage) 1,000 mg PO BIDAC [facility] Last Admin: 03/29/20 08:28 Dose: 1,000 mg Prednisone (Prednisone) 20 mg PO DAILY [facility] Last Admin: 03/29/20 08:27 Dose: 20 mg - Exam Quality Assessment: No: Supplemental Oxygen General: Alert, Oriented, Cooperative, No Acute Distress Lungs: Clear to Auscultation, Normal Respiratory Effort Cardiovascular: Regular Rate, Irregular Rhythm, Murmurs GI/Abdominal Exam: Soft, No Distention Extremities: Pedal Edema. No: Increased Warmth Skin: Warm, Dry Psy/Mental Status: Alert, Normal Affect Sepsis Event Note - Evaluation Sepsis Screening Result: No Definite Risk - Focused Exam Vital Signs: Vital Signs Temp Pulse Pulse Resp BP BP Pulse Ox 03/30/20 09:55 107 H 03/30/20 08:00 36.3 C 101 H 12 103/54 L 94 L 03/30/20 07:34 92 105/56 L 03/30/20 06:00 23 H 105/54 L 97 03/30/20 04:00 36.6 C 20 107/59 L 95 03/30/20 02:00 20 105/60 94 L 03/30/20 00:00 36.6 C 20 95/53 L 92 L Date Exam was Performed: 03/30/20 Time Exam was Performed: 13:39 - Problem List & Annotations (1) Congestive heart failure SNOMED Code(s): 47195019 Code(s): I50.9 - HEART FAILURE, UNSPECIFIED Status: Acute Current Visit: Yes Qualifiers: Heart failure type: unspecified Heart failure chronicity: acute Qualified Code(s): I50.9 - Heart failure, unspecified (2) Aortic stenosis, moderate SNOMED Code(s): 54927733 Code(s): I35.0 - NONRHEUMATIC AORTIC (VALVE) STENOSIS Status: Acute Current Visit: Yes (3) Atrial fibrillation with rapid ventricular response SNOMED Code(s): 298971352761297 Code(s): I48.91 - UNSPECIFIED ATRIAL FIBRILLATION Status: Acute Current Visit: Yes (4) Bullous pemphigoid SNOMED Code(s): 87383707 Code(s): L12.0 - BULLOUS PEMPHIGOID Status: Acute Current Visit: No (5) Hyperkalemia SNOMED Code(s): 64711771 Code(s): E87.5 - HYPERKALEMIA Status: Resolved Current Visit: No (6) Diabetes mellitus type 2 with complications SNOMED Code(s): 71955565, 727201671 Code(s): E11.8 - TYPE 2 DIABETES MELLITUS WITH UNSPECIFIED COMPLICATIONS Status: Chronic Current Visit: No - Problem List Review Problem List Initiated/Reviewed/Updated: Yes - My Orders Last 24 Hours: My Active Orders 03/29/20 09:58 SAHIL Bandage [Elastic Wrap] [OM.PC] Routine 03/29/20 18:00 carvediloL [Coreg] 12.5 mg PO BID@0800,1800 metFORMIN [Glucophage] 1,000 mg PO BID@0800,1800 03/30/20 07:00 Echo Comp wo Cont [US] Routine 03/30/20 08:00 Aspirin [Halfprin] 81 mg PO DAILY@0800 Ezetimibe [Zetia] 10 mg PO DAILY@0800 predniSONE 20 mg PO DAILY@0800 03/30/20 10:52 CV Ankle Brachial Index (CIARA) [US] Routine 03/30/20 11:00 Diltiazem IR [Cardizem] 30 mg PO Q6HR 03/31/20 05:00 BASIC METABOLIC PANEL,BMP [CHEM] Timed - Plan Plan:: ASSESSMENT AND PLAN - Heart failure with preserved ejection fraction-EF normal. Severe aortic stenosis and mitral regurgitation. Also some diastolic dysfunction. Volume status seems to be appropriate today other than some remaining lower extremity edema. Creatinine slightly higher today. -IV furosemide 40 mg x 1 dose today -Continue beta-amanda with dose increase -Daily weights -Sahil wraps so his legs are wrapped from the foot all the way to the knee Atrial fibrillation with rapid ventricular response-new onset. Rate better yesterday but bradycardic overnight. -Restart diltiazem at lower dose of 30 mg every 6 hours -Continue beta-amanda with increase in dose Hyperkalemia-improved with diuresis. 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 -Continue home medications Stage III chronic kidney disease-creatinine slightly higher today with diuresis. Maintenance issues - - DVT prophylaxis -enoxaparin - GI prophylaxis -not indicated - Nutrition -low-sodium - Croft catheter -placement attempted but unsuccessful on 03/28 Disposition -I would anticipate discharge home with home care after the hospital stay Win Vargas M.D.
[2020-03-30] MEDS: Diltiazem IR 30 MG Tab PO SCH ×3 (11:03→22:18)
--- NOTE | 2020-03-30 13:38 | US ---
CV Ankle Brachial Index (CIARA) CLINICAL HISTORY: Nonhealing leg ulcer FINDINGS: Ankle-Brachial Indices: Right arm blood pressure is 99. The left arm blood pressure is 106. The right posterior tibial artery pressure is 55. A/B index is 0.52. The right dorsal pedal artery is noncompressible. The left posterior tibial pressure is 120. The A/B index is greater than 1. The left dorsal pedal pressure is 1:15. The A/B index is greater than 1. Doppler images show monophasic waveforms in the right calf arteries There are monophasic waveforms in the left posterior tibial and multiphasic waveforms in the left dorsalis pedis artery IMPRESSION: Right ankle-brachial pressures suggests severe atherosclerotic vascular occlusive disease. There is some hardening of the arteries within in compressible dorsalis pedis on the right Ankle-brachial indices do not show significant at this clinic vascular occlusive disease on the left. There is some small vessel disease involving the posterior tibial artery
[2020-03-30] MEDS: Melatonin 3 MG Tab PO SCH (21:04)
[2020-03-30] MEDS: Insulin Glargine,Human Rec. Analog 100 Units/ML 3 ML Pen SUBCUT SCH (21:05)
[2020-03-31] MEDS: Diltiazem IR 30 MG Tab PO SCH ×4 (04:10→21:26)
[2020-03-31] MEDS: glipiZIDE 5 MG Tab PO SCH ×2 (07:27→15:31)
[2020-03-31] MEDS: Carvedilol 12.5 MG Tab PO SCH ×2 (07:27→17:26)
[2020-03-31] MEDS: metFORMIN 500 MG Tab PO SCH ×2 (07:27→17:25)
[2020-03-31] MEDS: Aspirin 81 MG Tab.EC PO SCH (07:28)
[2020-03-31] MEDS: Ezetimibe 10 MG Tab PO SCH (07:29)
[2020-03-31] MEDS: predniSONE 20 MG Tab PO SCH (07:34)
[2020-03-31] MEDS: Tamsulosin 0.4 MG Cap.ER PO SCH (08:31)
[2020-03-31] MEDS: Enoxaparin 40 MG/0.4 ML Syringe SUBCUT SCH (08:31)
--- NOTE | 2020-03-31 12:55 | PCM.PN ---
- General Info Date of Service: 03/31/20 Subjective Update: No acute events overnight. Decent response to diuresis yesterday. Lower extremity edema is much better and he did does still have some concentrated around his knees. No significant shortness of breath. Strength is slowly improving. Still requires a little of assistance to get up out of the bed or out of the chair but in general doing better. Kidney function stable. Heart rate has been well controlled with the 30 mg of diltiazem every 6 hours. Functional Status: Reports: Pain Controlled, Tolerating Diet - Review of Systems General: Reports: Weakness Pulmonary: Denies: Shortness of Breath - Patient Data Vitals - Most Recent: Last Vital Signs Temp 36.8 C 03/31/20 10:34 Pulse 89 03/31/20 10:34 Resp 16 03/31/20 10:34 BP 105/53 L 03/31/20 10:34 Pulse Ox 98 03/31/20 10:34 Weight - Most Recent: 103.873 kg I&O - Last 24 Hours: Intake & Output 03/30/20 03/31/20 03/31/20 22:59 06:59 14:59 Intake Total 710 880 Output Total 600 125 200 Balance 110 -125 680 Lab Results Last 24 Hours: Laboratory Results - last 24 hr 03/31/20 Range/Units 04:20 Sodium 145 (140-148) mmol/L Potassium 3.9 (3.6-5.2) mmol/L Chloride 107 (100-108) mmol/L Carbon Dioxide 31 (21-32) mmol/L Anion Gap 7.1 (5.0-14.0) mmol/L BUN 26 H (7-18) mg/dL Creatinine 1.3 (0.8-1.3) mg/dL Est Cr Clr Drug Dosing 44.77 mL/min Estimated GFR (MDRD) 52 L (>60) Glucose 112 H (74-106) mg/dL Calcium 8.8 (8.5-10.1) mg/dL Med Orders - Current: Current Medications Acetaminophen (Tylenol) 650 mg PO Q4H PRN PRN Reason: Pain (Mild 1-3)/fever Albuterol (Proventil Neb Soln) 2.5 mg NEB Q4H PRN PRN Reason: Shortness Of Breath/wheezing Aspirin (Halfprin) 81 mg PO DAILY@0800 [facility] Last Admin: 06/05/20 07:28 Dose: 81 mg Carvedilol (Coreg) 12.5 mg PO BID@0800,1800 [facility] Last Admin: 03/31/20 07:27 Dose: 12.5 mg Diltiazem HCl (Cardizem) 30 mg PO Q6HR [facility] Stop: 04/01/20 05:00 Last Admin: 03/31/20 09:59 Dose: 30 mg Diltiazem HCl (Cardizem Cd) 120 mg PO DAILY [facility] Ezetimibe (Zetia) 10 mg PO DAILY@0800 [facility] Last Admin: 03/31/20 07:29 Dose: 10 mg Enoxaparin Sodium (Lovenox) 40 mg SUBCUT DAILY [facility] Last Admin: 03/31/20 08:31 Dose: 40 mg Furosemide (Lasix) 40 mg IVPUSH DAILY [facility] Glipizide (Glucotrol) 5 mg PO BIDAC [facility] Last Admin: 03/31/20 07:27 Dose: 5 mg Insulin Glargine (Lantus Solostar) 30 units SUBCUT BEDTIME [facility] Last Admin: 03/30/20 21:05 Dose: 30 unit Lorazepam (Ativan) 0.5 mg IVPUSH Q4H PRN PRN Reason: Nausea/Vomiting Magnesium Hydroxide (Milk Of Magnesia) 30 ml PO Q12H PRN PRN Reason: Constipation Melatonin (Melatonin) 9 mg PO BEDTIME [facility] Last Admin: 03/30/20 21:04 Dose: 9 mg Metformin HCl (Glucophage) 1,000 mg PO BID@0800,1800 [facility] Last Admin: 03/31/20 07:27 Dose: 1,000 mg Ondansetron HCl (Zofran Odt) 4 mg PO Q6H PRN PRN Reason: Nausea able to take PO Ondansetron HCl (Zofran) 4 mg IV Q6H PRN PRN Reason: Nausea/Vomiting Prednisone (Prednisone) 20 mg PO DAILY@0800 [facility] Last Admin: 03/31/20 07:34 Dose: 20 mg Senna/Docusate Sodium (Senna Plus) 1 tab PO BID PRN PRN Reason: Constipation Sodium Chloride (Saline Flush) 10 ml FLUSH ASDIRECTED PRN PRN Reason: Keep Vein Open Tamsulosin HCl (Flomax) 0.4 mg PO PCBREAKFAST [facility] Last Admin: 03/31/20 08:31 Dose: 0.4 mg Discontinued Medications Aspirin (Halfprin) 81 mg PO DAILY [facility] Last Admin: 03/29/20 08:29 Dose: 81 mg Carvedilol (Coreg) 6.25 mg PO BIDMEALS [facility] Last Admin: 03/29/20 08:28 Dose: 6.25 mg Diltiazem HCl (Cardizem) 60 mg PO Q6H [facility] Last Admin: 03/29/20 18:22 Dose: 60 mg Ezetimibe (Zetia) 10 mg PO DAILY [facility] Last Admin: 03/29/20 08:27 Dose: 10 mg Furosemide (Lasix) 40 mg IVPUSH ONETIME ONE Stop: 03/29/20 08:01 Last Admin: 03/29/20 08:27 Dose: 40 mg Furosemide (Lasix) 40 mg IVPUSH ONETIME ONE Stop: 03/28/20 19:20 Last Admin: 03/28/20 20:02 Dose: 40 mg Furosemide (Lasix) 40 mg IVPUSH ONETIME ONE Stop: 03/29/20 15:01 Last Admin: 03/29/20 16:01 Dose: 40 mg Furosemide (Lasix) 40 mg IVPUSH DAILY [facility] Last Admin: 03/30/20 10:06 Dose: Not Given Diltiazem HCl 100 mg/ Sodium (Chloride) 100 mls @ 5 mls/hr IV TITRATE [facility]; Protocol Stop: 03/29/20 12:00 Last Titration: 03/29/20 11:50 Dose: 0 mg/hr, 0 mls/hr Lidocaine HCl (Xylocaine 2% Jelly) 10 ml MUCMEM ONETIME ONE Stop: 03/28/20 19:20 Last Admin: 03/28/20 20:53 Dose: 10 ml Metformin HCl (Glucophage) 1,000 mg PO BIDAC [facility] Last Admin: 03/29/20 08:28 Dose: 1,000 mg Prednisone (Prednisone) 20 mg PO DAILY [facility] Last Admin: 03/29/20 08:27 Dose: 20 mg - Exam Quality Assessment: No: Supplemental Oxygen General: Alert, Oriented, Cooperative, No Acute Distress Neck: JVD Lungs: Clear to Auscultation, Normal Respiratory Effort Cardiovascular: Regular Rate, Irregular Rhythm, Murmurs GI/Abdominal Exam: Soft, No Distention Extremities: Pedal Edema (both knees from midshin to lower thigh ). No: Increased Warmth Skin: Warm, Dry Psy/Mental Status: Alert, Normal Affect Sepsis Event Note - Evaluation Sepsis Screening Result: No Definite Risk - Focused Exam Vital Signs: Vital Signs Temp Pulse Pulse Resp BP BP Pulse Ox 03/31/20 10:34 36.8 C 89 16 105/53 L 98 03/31/20 07:27 94 105/60 03/31/20 07:18 36.0 C L 94 16 105/60 96 03/31/20 03:09 36.7 C 88 18 99/55 L 99 Date Exam was Performed: 03/31/20 Time Exam was Performed: 14:52 - Problem List & Annotations (1) Congestive heart failure SNOMED Code(s): 85746918 Code(s): I50.9 - HEART FAILURE, UNSPECIFIED Status: Acute Current Visit: Yes Qualifiers: Heart failure type: diastolic Heart failure chronicity: acute Qualified Code(s): I50.31 - Acute diastolic (congestive) heart failure (2) Aortic stenosis, severe SNOMED Code(s): 59167739 Code(s): I35.0 - NONRHEUMATIC AORTIC (VALVE) STENOSIS Status: Acute Current Visit: Yes (3) Aortic stenosis, moderate SNOMED Code(s): 06773294 Code(s): I35.0 - NONRHEUMATIC AORTIC (VALVE) STENOSIS Status: Resolved Current Visit: Yes (4) Atrial fibrillation with rapid ventricular response SNOMED Code(s): 378066775880376 Code(s): I48.91 - UNSPECIFIED ATRIAL FIBRILLATION Status: Acute Current Visit: Yes (5) Bullous pemphigoid SNOMED Code(s): 72679161 Code(s): L12.0 - BULLOUS PEMPHIGOID Status: Acute Current Visit: No (6) Hyperkalemia SNOMED Code(s): 52035210 Code(s): E87.5 - HYPERKALEMIA Status: Resolved Current Visit: No (7) Diabetes mellitus type 2 with complications SNOMED Code(s): 83463012, 754510719 Code(s): E11.8 - TYPE 2 DIABETES MELLITUS WITH UNSPECIFIED COMPLICATIONS Status: Chronic Current Visit: No - Problem List Review Problem List Initiated/Reviewed/Updated: Yes - My Orders Last 24 Hours: My Active Orders 03/30/20 15:45 Transfer Patient (Change bed) [ADT] Routine 03/31/20 12:52 Furosemide [Lasix] 40 mg IVPUSH ONETIME ONE 03/31/20 12:54 Discontinue Telemetry Monitoring [Cardiac Monitoring Discontinue] [RC] Click to Edit 03/31/20 17:00 GLUCOSE POC LAB TO COLLECT [POC] BID 04/01/20 05:00 BASIC METABOLIC PANEL,BMP [CHEM] Timed 04/01/20 09:00 Diltiazem [Cardizem CD] 120 mg PO DAILY Furosemide [Lasix] 40 mg IVPUSH DAILY - Plan Plan:: ASSESSMENT AND PLAN - Heart failure with preserved ejection fraction-EF normal. Severe aortic stenosis and mitral regurgitation. Also some diastolic dysfunction. Mild volume overload persists but in general is doing better. Edema better but not resolved. -IV furosemide 40 mg x 1 dose today and in the morning -Anticipate transition to oral medications tomorrow or the next day -Continue beta-amanda with dose increase -Daily weights -Sahil wraps so his legs are wrapped from the foot all the way to the knee Atrial fibrillation with rapid ventricular response-new onset. Rate better overnight. -Continue diltiazem at lower dose of 30 mg every 6 hours, transition to long- acting in the morning -Continue beta-amanda with increase in dose Hyperkalemia-improved with diuresis. 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 -Continue home medications Stage III chronic kidney disease-creatinine better today. Maintenance issues - - DVT prophylaxis -enoxaparin - GI prophylaxis -not indicated - Nutrition -low-sodium Disposition -I would anticipate discharge home with home care after the hospital stay Win Vargas M.D.
[2020-03-31] MEDS ORDERED: Furosemide 40 MG/4 ML VIAL IVPUSH ONE (13:15)
[2020-03-31] MEDS: Insulin Glargine,Human Rec. Analog 100 Units/ML 3 ML Pen SUBCUT SCH (21:26)
[2020-03-31] MEDS: Melatonin 3 MG Tab PO SCH (21:26)
[2020-04-01] MEDS: Diltiazem IR 30 MG Tab PO SCH (05:00)
[2020-04-01 06:55] VITALS: PULSE 98
[2020-04-01] MEDS: metFORMIN 500 MG Tab PO SCH (07:48)
[2020-04-01] MEDS: Aspirin 81 MG Tab.EC PO SCH (07:48)
[2020-04-01] MEDS: glipiZIDE 5 MG Tab PO SCH (07:48)
[2020-04-01] MEDS: Carvedilol 12.5 MG Tab PO SCH (07:50)
[2020-04-01] MEDS: Ezetimibe 10 MG Tab PO SCH (07:50)
[2020-04-01] MEDS: predniSONE 20 MG Tab PO SCH (07:51)
[2020-04-01 08:31] VITALS: BP 112/64
[2020-04-01] MEDS: Tamsulosin 0.4 MG Cap.ER PO SCH (08:31)
[2020-04-01] MEDS ORDERED: Furosemide 40 MG/4 ML VIAL IVPUSH SCH (09:00)
[2020-04-01] MEDS ORDERED: Diltiazem 120 MG Cap.CD PO SCH (09:00)
--- NOTE | 2020-04-01 10:24 | PCM.DCSUM1 ---
Discharge Summary - Hospital Course Brief History: 84-year-old male with history of insulin-dependent diabetes, moderately severe aortic stenosis and bullous pemphigoid still requiring prednisone therapy who presented with progressive weakness, lower extremity swelling and shortness of breath. He was admitted from the clinic for management of an acute exacerbation of congestive heart failure as well as atrial fibrillation with a rapid ventricular response. 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 - Discharge Diagnosis/Problem(s) (1) Congestive heart failure SNOMED Code(s): 48791914 ICD Code: I50.9 - HEART FAILURE, UNSPECIFIED Status: Acute Current Visit : Yes Qualifiers: Heart failure type: diastolic Heart failure chronicity: acute Qualified Code(s): I50.31 - Acute diastolic (congestive) heart failure (2) Aortic stenosis, severe SNOMED Code(s): 12580135 ICD Code: I35.0 - NONRHEUMATIC AORTIC (VALVE) STENOSIS Status: Acute Current Visit: Yes (3) Aortic stenosis, moderate SNOMED Code(s): 45199843 ICD Code: I35.0 - NONRHEUMATIC AORTIC (VALVE) STENOSIS Status: Resolved Current Visit: Yes (4) Atrial fibrillation with rapid ventricular response SNOMED Code(s): 515822472049540 ICD Code: I48.91 - UNSPECIFIED ATRIAL FIBRILLATION Status: Acute Current Visit: Yes (5) Bullous pemphigoid SNOMED Code(s): 90587541 ICD Code: L12.0 - BULLOUS PEMPHIGOID Status: Acute Current Visit: No (6) Hyperkalemia SNOMED Code(s): 35263964 ICD Code: E87.5 - HYPERKALEMIA Status: Resolved Current Visit: No (7) Diabetes mellitus type 2 with complications SNOMED Code(s): 95997758, 735871661 ICD Code: E11.8 - TYPE 2 DIABETES MELLITUS WITH UNSPECIFIED COMPLICATIONS Status: Chronic Current Visit: No - Patient Summary/Data Consults: Consultations 03/28/20 18:55 PT Evaluation and Treatment [CONS] Routine Please Evaluate and Treat. PT Reason for Consult: Strengthening This query below is only for informational purposes and is not editable. Hospital Course: Nelson presented to the walk-in clinic with progressive shortness of breath and lower extremity edema. In the walk-in clinic he was noted to have atrial fibrillation with a rapid ventricular response and concern for congestive heart failure. He was sent to the hospital for direct admission. Upon arrival to the intensive care unit we did start him on diuretics as well as a diltiazem infusion to manage his atrial fibrillation. Overnight following admission were able to achieve pretty good rate control with 15 mg/h of diltiazem. We saw some improvement in his lower extremity edema with the furosemide. During the second day of admission we tried to transition him to oral diltiazem and get rid of the diltiazem infusion. Continue diuresis. He did continue to have a good response to diuresis with improvement in his lower extremity edema. With the transition to oral diltiazem we did see some bradycardia even though the oral dose was smaller than his the IV dose that he had been receiving. The diltiazem was held overnight with return of his heart rate to the 80s and 90s. On the third day we did see a slight rise in his creatinine so he only received 1 dose of IV furosemide. Volume status did appear to be improving with less JVD and edema. We did restart the diltiazem at a lower dose and saw a good response. We did not see any bradycardia with 30 mg every 6 hours. On the third day of the hospital stay we also obtained an echocardiogram and compared to his last one from July of last year. He still has a normal ejection fraction. His aortic stenosis is now severe with a valve area of less than 1 cm . He has severe mitral regurgitation. He still had some evidence for volume overload so we continued IV diuresis for 1 additional day. On the day of discharge his volume status appears not fairly appropriate other than some residual edema around his knees. His edema from just below the knee to the feet has improved with his compression wraps. The edema that was present on his thighs and up to the waist has resolved. He does not have any JVD today. His heart rate is been in the 80s and low 90s. Blood pressures has been in the 100-110 range. His strength has improved to the point that he no longer requires assistance to stand up. I believe he is safe for discharge home at this point. He was interested in home care to help ease his transition home. During the hospital stay we did start 2 new medications. 1 of them was the diltiazem which she will be taking once daily in the morning while he remains in atrial fibrillation. I also started him on furosemide and there is an outline for the dosing in his discharge information but the plan is for him to be on 40 mg daily as a maintenance after about a week of decreasing doses. We did also increase his carvedilol to 12.5 mg twice daily. His CHADSS-VASC score is significantly greater than 2 and anticoagulation should be considered if he continues to be in atrial fibrillation even after adequate diuresis for his congestive heart failure. Regarding his severe aortic stenosis, he has had previous follow-up with cardiology in [place] and may benefit from a more urgent follow-up than what is currently plan to discuss the possibility of a transaortic valve replacement. He will be discharged home with early follow-up planned. - Patient Instructions Diet: Diabetic Diet Activity: As Tolerated Showering/Bathing: May Shower Notify Provider of: Fever, Increased Pain Other/Special Instructions: 1. You were in the hospital for management of congestive heart failure caused by severe aortic stenosis. Your condition has been improving with medication adjustments and diuresis. We have increased your carvedilol dose as discussed below. This medication helps to lower your blood pressure and decrease your heart rate. We did start you on furosemide ( Lasix) to help reduce the fluid in your system. Directions for this medication are outlined below. We also noted that your heart rate was quite fast during the early part of the hospital stay. Your heart rate has improved with the addition of diltiazem as well as the increase in the carvedilol. Please take diltiazem once daily as outlined below. --start taking carvedilol 12.5 mg twice daily. --start taking diltiazem 120 mg once daily in the morning. -- start taking furosemide to help with fluid balance. Friday - take 80 mg once today when you get home. Friday through Friday - take 80 mg in the morning and 40 mg in the afternoon. Starting take 80 mg daily and do this for four days. Starting April 09 take 40 mg daily. 2. I have placed a referral to home health care. They will provide nursing and physical therapy services to help ease your transition home. - Discharge Plan *PRESCRIPTION DRUG MONITORING PROGRAM REVIEWED*: Not Applicable *COPY OF PRESCRIPTION DRUG MONITORING REPORT IN PATIENT KYLE: Not Applicable Prescriptions/Med Rec: carvediloL [Carvedilol] 12.5 mg PO BID #180 tablet carvediloL [Coreg] 12.5 mg PO BID@0800,1800 #60 tablet Diltiazem [Cardizem CD] 120 mg PO DAILY #30 cap.cd Diltiazem HCl [Diltiazem 24Hr ER] 120 mg PO DAILY #90 cap.er.24h Furosemide 40 mg PO BID #60 tablet Furosemide 40 mg PO DAILY #90 tablet Home Medications: Home Meds Cholecalciferol (Vitamin D3) [Vitamin D3] 1,000 units PO DAILY 05/04/17 [History ] Multivitamin [Multivitamins] 1 mg PO DAILY 05/04/17 [History] Pramoxine HCl/Menthol [[place] Med Anti-Itch] 2 gm TOP ASDIRECTED PRN [History] metFORMIN [Glucophage] 1,000 mg PO BID 05/04/17 [History] Aspirin [Halfprin] 81 mg PO DAILY 12/03/19 [History] Ferrous Sulfate [Ferosul] 325 mg PO DAILY 12/03/19 [History] Prednisone [IJD: predniSONE] 20 mg PO DAILY 12/03/19 [History] Insulin Glarg,Human.Rec.Analog [Lantus Solostar] 30 units SUBCUT BEDTIME #4 pen 12/07/19 [Rx] Tamsulosin [Flomax] 0.4 mg PO PCBREAKFAST #14 cap.er 12/07/19 [Rx] Ezetimibe 10 mg PO DAILY 03/28/20 [History] Mupirocin Cream [Bactroban Crm] 30 gm .XX ASDIRECTED 03/28/20 [History] Triamcinolone Acetonide [Triamcinolone Acetonide 0.1% Crm] 1 applic .XX BID 12/16 [History] glipiZIDE [Glucotrol] 5 mg PO BID 03/28/20 [History] Diltiazem HCl [Diltiazem 24Hr ER] 120 mg PO DAILY #90 cap.er.24h 06/06/20 [Rx] Diltiazem [Cardizem CD] 120 mg PO DAILY #30 cap.cd 04/01/20 [Rx] Furosemide 40 mg PO BID #60 tablet 04/01/20 [Rx] Furosemide 40 mg PO DAILY #90 tablet 04/01/20 [Rx] carvediloL [Carvedilol] 12.5 mg PO BID #180 tablet 04/01/20 [Rx] carvediloL [Coreg] 12.5 mg PO BID@0800,1800 #60 tablet 04/01/20 [Rx] Oxygen Therapy Mode: Room Air Patient Handouts: Furosemide tablets, Heart Failure, Self Care, Heart Failure Action Plan Referrals: Katerine Richardson MD [Primary Care Provider] - 04/07/20 1:30 pm (Please arrive 15 minutes early to register for your appointment) Joe Gaspar MD [Physician] - 04/03/20 2:00 pm (Please arrive 15 minutes early to register for your appointment.) - Discharge Summary/Plan Comment DC Time >30 min.: Yes (35-coordinating home health care) - Patient Data Vitals - Most Recent: Last Vital Signs Temp 36.8 C 04/01/20 06:52 Pulse 98 04/01/20 08:31 Resp 20 04/01/20 06:52 BP 112/64 04/01/20 08:31 Pulse Ox 98 04/01/20 06:52 Weight - Most Recent: 98.067 kg I&O - Last 24 hours: Intake & Output 03/31/20 04/01/20 04/01/20 22:59 06:59 14:59 Intake Total 240 300 480 Output Total 1500 350 Balance -1260 -50 480 Lab Results - Last 24 hrs: Laboratory Results - last 24 hr 04/01/20 Range/Units 04:15 Sodium 142 (140-148) mmol/L Potassium 3.8 (3.6-5.2) mmol/L Chloride 105 (100-108) mmol/L Carbon Dioxide 34 H (21-32) mmol/L Anion Gap 6.8 (5.0-14.0) mmol/L BUN 25 H (7-18) mg/dL Creatinine 1.3 (0.8-1.3) mg/dL Est Cr Clr Drug Dosing 44.77 mL/min Estimated GFR (MDRD) 52 L (>60) Glucose 170 H (74-106) mg/dL Calcium 8.8 (8.5-10.1) mg/dL Med Orders - Current: Current Medications Acetaminophen (Tylenol) 650 mg PO Q4H PRN PRN Reason: Pain (Mild 1-3)/fever Albuterol (Proventil Neb Soln) 2.5 mg NEB Q4H PRN PRN Reason: Shortness Of Breath/wheezing Aspirin (Halfprin) 81 mg PO DAILY@0800 [facility] Last Admin: 04/01/20 07:48 Dose: 81 mg Carvedilol (Coreg) 12.5 mg PO BID@0800,1800 [facility] Last Admin: 04/01/20 07:50 Dose: 12.5 mg Diltiazem HCl (Cardizem Cd) 120 mg PO DAILY [facility] Last Admin: 04/01/20 08:31 Dose: 120 mg Ezetimibe (Zetia) 10 mg PO DAILY@0800 [facility] Last Admin: 04/01/20 07:50 Dose: 10 mg Enoxaparin Sodium (Lovenox) 40 mg SUBCUT DAILY [facility] Last Admin: 03/31/20 08:31 Dose: 40 mg Furosemide (Lasix) 40 mg IVPUSH DAILY [facility] Glipizide (Glucotrol) 5 mg PO BIDAC [facility] Last Admin: 04/01/20 07:48 Dose: 5 mg Insulin Glargine (Lantus Solostar) 30 units SUBCUT BEDTIME [facility] Last Admin: 03/31/20 21:26 Dose: 30 unit Lorazepam (Ativan) 0.5 mg IVPUSH Q4H PRN PRN Reason: Nausea/Vomiting Magnesium Hydroxide (Milk Of Magnesia) 30 ml PO Q12H PRN PRN Reason: Constipation Melatonin (Melatonin) 9 mg PO BEDTIME [facility] Last Admin: 03/31/20 21:26 Dose: 9 mg Metformin HCl (Glucophage) 1,000 mg PO BID@0800,1800 [facility] Last Admin: 04/01/20 07:48 Dose: 1,000 mg Ondansetron HCl (Zofran Odt) 4 mg PO Q6H PRN PRN Reason: Nausea able to take PO Ondansetron HCl (Zofran) 4 mg IV Q6H PRN PRN Reason: Nausea/Vomiting Prednisone (Prednisone) 20 mg PO DAILY@0800 [facility] Last Admin: 04/01/20 07:51 Dose: 20 mg Senna/Docusate Sodium (Senna Plus) 1 tab PO BID PRN PRN Reason: Constipation Sodium Chloride (Saline Flush) 10 ml FLUSH ASDIRECTED PRN PRN Reason: Keep Vein Open Tamsulosin HCl (Flomax) 0.4 mg PO PCBREAKFAST [facility] Last Admin: 04/01/20 08:31 Dose: 0.4 mg Discontinued Medications Aspirin (Halfprin) 81 mg PO DAILY [facility] Last Admin: 03/29/20 08:29 Dose: 81 mg Carvedilol (Coreg) 6.25 mg PO BIDMEALS [facility] Last Admin: 03/29/20 08:28 Dose: 6.25 mg Diltiazem HCl (Cardizem) 60 mg PO Q6H [facility] Last Admin: 03/29/20 18:22 Dose: 60 mg Diltiazem HCl (Cardizem) 30 mg PO Q6HR [facility] Stop: 04/01/20 05:00 Last Admin: 04/01/20 05:00 Dose: 30 mg Ezetimibe (Zetia) 10 mg PO DAILY [facility] Last Admin: 03/29/20 08:27 Dose: 10 mg Furosemide (Lasix) 40 mg IVPUSH ONETIME ONE Stop: 03/29/20 08:01 Last Admin: 03/29/20 08:27 Dose: 40 mg Furosemide (Lasix) 40 mg IVPUSH ONETIME ONE Stop: 03/28/20 19:20 Last Admin: 03/28/20 20:02 Dose: 40 mg Furosemide (Lasix) 40 mg IVPUSH ONETIME ONE Stop: 03/29/20 15:01 Last Admin: 03/29/20 16:01 Dose: 40 mg Furosemide (Lasix) 40 mg IVPUSH DAILY [facility] Last Admin: 03/30/20 10:06 Dose: Not Given Furosemide (Lasix) 40 mg IVPUSH ONETIME ONE Stop: 03/31/20 13:16 Last Admin: 03/31/20 13:51 Dose: 40 mg Diltiazem HCl 100 mg/ Sodium (Chloride) 100 mls @ 5 mls/hr IV TITRATE [facility]; Protocol Stop: 03/29/20 12:00 Last Titration: 03/29/20 11:50 Dose: 0 mg/hr, 0 mls/hr Lidocaine HCl (Xylocaine 2% Jelly) 10 ml MUCMEM ONETIME ONE Stop: 03/28/20 19:20 Last Admin: 03/28/20 20:53 Dose: 10 ml Metformin HCl (Glucophage) 1,000 mg PO BIDAC [facility] Last Admin: 03/29/20 08:28 Dose: 1,000 mg Prednisone (Prednisone) 20 mg PO DAILY [facility] Last Admin: 03/29/20 08:27 Dose: 20 mg - Exam Quality Assessment: Denies: Supplemental Oxygen General: Reports: Alert, Oriented, Cooperative, No Acute Distress Lungs: Reports: Normal Respiratory Effort GI/Abdominal Exam: Soft, No Distention Extremities: Pedal Edema (around the knees ) Psy/Mental Status: Reports: Alert, Normal Affect
== END 2020-04-01 11:48 | disposition home health service (06) | DRG 291 ==
LOC: JP.ICU 17:52 → JP.MS 03-30 16:06
PROVIDERS: ADMIT Internal Medicine; ATTEND Internal Medicine
DX: I13.0 Hypertensive heart and chronic kidney disease with heart failure and stage 1 through stage 4 chronic kidney disease, or unspecified chronic kidney disease (principal); I50.31 Acute diastolic (congestive) heart failure; L12.0 Bullous pemphigoid; I48.91 Unspecified atrial fibrillation; E87.5 Hyperkalemia; Z66 Do not resuscitate; I08.0 Rheumatic disorders of both mitral and aortic valves; N18.3 Chronic kidney disease, stage 3 (moderate); H91.90 Unspecified hearing loss, unspecified ear; H54.7 Unspecified visual loss; G89.29 Other chronic pain; M54.9 Dorsalgia, unspecified; E11.9 Type 2 diabetes mellitus without complications; Z90.49 Acquired absence of other specified parts of digestive tract; Z79.82 Long term (current) use of aspirin; Z79.84 Long term (current) use of oral hypoglycemic drugs; Z79.899 Other long term (current) drug therapy; Z79.52 Long term (current) use of systemic steroids; Z96.659 Presence of unspecified artificial knee joint
CPT/HCPCS: 36415; 80048; 81001; 82962; 84439; 84443; 85027; 85610; 93306; 93922; 93922-26; 97110-GP; 97162-GP; 97530-GP; A9270-GY; J1650; J1815-GY; J1940; J3490; J7050; J7512

== ENCOUNTER 2020-06-20 07:50 | Emergency (ER) | payer OTHER ==
--- NOTE | 2020-06-20 08:27 | EDM.PDOC ---
ED HPI GENERAL MEDICAL PROBLEM - General Chief Complaint: Cardiovascular Problem Stated Complaint: MEDICAL VIA [facility] Time Seen by Provider: 06/20/20 08:00 Source of Information: Reports: Patient History Limitations: Reports: No Limitations - History of Present Illness INITIAL COMMENTS - FREE TEXT/NARRATIVE: This is an 84-year-old gentleman with an extensive past medical history including aortic stenosis, mitral regurgitation, bullous pemphigoid on steroids who presents with concerns of generalized weakness. Report he got out of bed this morning and went to use the restroom when he felt generally weak and unwell. His weakness is global. He denies any focal weakness or speech difficulty. He has no fevers or chills. No significant dyspnea or cough. No chest pain or palpitations. No abdominal pain. No urinary symptoms. He has bilateral pitting edema which he reports is his baseline. - Related Data Allergies Allergy/AdvReac Type Severity Reaction Status Date / Time codeine Allergy Anxiety Verified 03/28/20 18:20 Home Meds: Home Meds Cholecalciferol (Vitamin D3) [Vitamin D3] 1,000 units PO DAILY 05/04/17 [History] Multivitamin [Multivitamins] 1 mg PO DAILY 05/04/17 [History] Pramoxine HCl/Menthol [[place] Med Anti-Itch] 2 gm TOP ASDIRECTED PRN 05/04/17 [History] metFORMIN [Glucophage] 1,000 mg PO BID 05/04/17 [History] Aspirin [Halfprin] 81 mg PO DAILY 12/03/19 [History] Ferrous Sulfate [Ferosul] 325 mg PO DAILY 12/03/19 [History] Prednisone [IJD: predniSONE] 20 mg PO DAILY 12/03/19 [History] Insulin Glarg,Human.Rec.Analog [Lantus Solostar] 30 units SUBCUT BEDTIME #4 pen 12/07/19 [Rx] Tamsulosin [Flomax] 0.4 mg PO PCBREAKFAST #14 cap.er 12/07/19 [Rx] Ezetimibe 10 mg PO DAILY 03/28/20 [History] Mupirocin Cream [Bactroban Crm] 30 gm .XX ASDIRECTED 03/28/20 [History] Triamcinolone Acetonide [Triamcinolone Acetonide 0.1% Crm] 1 applic .XX BID 03/28/20 [History] Diltiazem [Cardizem CD] 120 mg PO DAILY #30 cap.cd 04/01/20 [Rx] Furosemide 40 mg PO DAILY #90 tablet 04/01/20 [Rx] Betamethasone Dipropionate [Diprosone 0.05% Oint] 1 applic TOP BID 06/20/20 [History] Digoxin [Lanoxin] 125 mcg PO DAILY 06/20/20 [History] Metoprolol Tartrate 50 mg PO BID 06/20/20 [History] Minocycline [Minocin] 100 mg PO BID 06/20/20 [History] Niacin 500 mg PO TID 06/20/20 [History] Past Medical History HEENT History: Reports: Hard of Hearing, Impaired Vision Cardiovascular History: Reports: Afib, Heart Failure, Hypertension Respiratory History: Reports: Other (See Below) Other Respiratory History: asbestosis Gastrointestinal History: Reports: Other (See Below) Other Gastrointestinal History: hiatal hernia Musculoskeletal History: Reports: Back Pain, Chronic Psychiatric History: Reports: Anxiety Endocrine/Metabolic History: Reports: Diabetes, Type II Hematologic History: Reports: Blood Transfusion(s), Other (See Below) 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 Immunologic History: Reports: None Oncologic (Cancer) History: Reports: None Dermatologic History: Reports: Other (See Below) Other Dermatologic History: bullosis - Infectious Disease History Infectious Disease History: Reports: Chicken Pox - Past Surgical History Head Surgeries/Procedures: Reports: None HEENT Surgical History: Reports: Cataract Surgery Cardiovascular Surgical History: Reports: None Respiratory Surgical History: Reports: None GI Surgical History: Reports: Appendectomy, Cholecystectomy Endocrine Surgical History: Reports: None Musculoskeletal Surgical History: Reports: Knee Replacement, Shoulder Surgery, Other (See Below) Other Musculoskeletal Surgeries/Procedures:: 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 Dermatological Surgical History: Reports: None Social & Family History - Family History Family Medical History: Noncontributory Neurological: Reports: CVA - Tobacco Use Smoking Status *Q: Former Smoker Years of Tobacco use: 30 Packs/Tins Daily: 1 Used Tobacco, but Quit: Yes Month/Year Tobacco Last Used: 07/1990 - Caffeine Use Caffeine Use: Reports: Coffee - Recreational Drug Use Recreational Drug Use: No ED ROS GENERAL - Review of Systems Review Of Systems: See Below Constitutional: Reports: Weakness HEENT: Reports: No Symptoms Respiratory: Reports: No Symptoms Cardiovascular: Reports: No Symptoms Endocrine: Reports: No Symptoms GI/Abdominal: Reports: No Symptoms : Reports: No Symptoms Musculoskeletal: Reports: No Symptoms Skin: Reports: Wound Neurological: Reports: No Symptoms Psychiatric: Reports: No Symptoms Hematologic/Lymphatic: Reports: No Symptoms Immunologic: Reports: No Symptoms ED EXAM, GENERAL - Physical Exam Exam: See Below Exam Limited By: No Limitations General Appearance: Alert Ears: Normal External Exam Nose: Normal Inspection Throat/Mouth: Normal Inspection Head: Atraumatic, Normocephalic Neck: Normal Inspection Respiratory/Chest: Lungs Clear Cardiovascular: Tachycardia, Systolic Murmur, Irregularly Irregular GI/Abdominal: Soft, Non-Tender Back Exam: Normal Inspection Extremities: Pedal Edema, Other (Foul-smelling, gangrenous appearing wound on the right foot.) Neurological: Alert, Oriented Psychiatric: Normal Affect, Normal Mood Skin Exam: Warm, Dry Course - Vital Signs Last Recorded V/S: Last Vital Signs Temp 37.1 C 06/20/20 08:02 Pulse 103 H 06/20/20 08:02 Resp 26 H 06/20/20 08:02 BP Pulse Ox 96 06/20/20 08:02 - Orders/Labs/Meds Orders: Active Orders 24 hr Category Date Time Status EKG Documentation Completion [RC] ASDIRECTED Care 06/20/20 08:18 Active Chest 1V Frontal [CR] Stat Exams 06/20/20 08:17 Taken TROPONIN I [CHEM] Stat Lab 06/20/20 09:25 Ordered UA W/MICROSCOPIC [URIN] Stat Lab 06/20/20 08:12 Ordered Piperacillin/Tazobactam/Dext [Zosyn in Dextrose Iso- Med 06/20/20 09:45 Active Osmotic] 4.5 gm Premix Bag 1 bag IV ONETIME EKG 12 Lead [EK] Routine Ther 06/20/20 08:18 Ordered Medication Orders Piperacillin/Tazobactam/ (Dextrose 4.5 gm/ Premix) 100 mls @ 200 mls/hr IV ONETIME ONE Stop: 06/20/20 10:14 Last Admin: 06/20/20 09:38 Dose: 200 mls/hr Documented by: STACEY Labs: Laboratory Tests 06/20/20 06/20/20 06/20/20 Range/Units 08:25 08:25 08:25 WBC 7.9 (4.5-11.0) K/uL RBC 4.32 (4.30-5.90) M/uL Hgb 10.9 L (12.0-15.0) g/dL Hct 36.2 L (40.0-54.0) % MCV 84 (80-98) fL MCH 25 L (27-31) pg MCHC 30 L (32-36) % Plt Count 260 (150-400) K/uL Sodium 140 (140-148) mmol/L Potassium 5.0 (3.6-5.2) mmol/L Chloride 104 (100-108) mmol/L Carbon Dioxide 27 (21-32) mmol/L Anion Gap 9.5 (5.0-14.0) mmol/L BUN 44 H D (7-18) mg/dL Creatinine 2.1 H D (0.8-1.3) mg/dL Est Cr Clr Drug Dosing 27.71 mL/min Estimated GFR (MDRD) 30 L (>60) Glucose 151 H (74-106) mg/dL Calcium 9.4 (8.5-10.1) mg/dL Total Bilirubin 0.4 (0.2-1.0) mg/dL AST 13 L D (15-37) U/L ALT 21 (12-78) U/L Alkaline Phosphatase 55 (46-116) U/L NT-Pro-B Natriuret Pep 4435 H (5-450) pg/mL Total Protein 5.9 L (6.4-8.2) g/dL Albumin 2.5 L (3.4-5.0) g/dL Globulin 3.4 (2.3-3.5) g/dL Albumin/Globulin Ratio 0.7 L (1.2-2.2) Meds: Medications Generic Name Dose Route Start Last Admin Trade Name Freq PRN Reason Stop Dose Admin Piperacillin/Tazobactam/ 100 mls @ 200 mls/hr 06/20/20 09:45 06/20/20 09:38 Dextrose 4.5 gm/ Premix IV 06/20/20 10:14 200 mls/hr ONETIME ONE Administration - Re-Assessments/Exams Free Text/Narrative Re-Assessment/Exam: 84-year-old with extensive medical history presents with global weakness. His exam is notable for tachycardia, he is in A. fib with mild RVR. Rates are around 100. His right foot shows pitting edema as well as a gangrenous appearing, foul-smelling wound which is suspicious for pseudomonal infection. Review of his medical records from show that he is actually due to have a stent placed in an artery of the right lower extremity tomorrow. The etiology of symptoms is not clear, but suspicious for right foot wound infection. We are going do basic work-up and obtain a chest x-ray. We are unable to pass a Croft catheter for UA. I suspect that he may need to have a right BKA performed. Anticipate transfer to [place] once work appears complete. We will also give as of Zosyn. 06/20/20 09:03 Free Text/Narrative Re-Assessment/Exam: Labs remarkable for ALLEN, elevation of BNP EKG does shows some new precordial ST depression, added on trop. He current denies any CP. Suspicion for ACS is low. Giving dose of zosyn. Accepted for admission in [place] for further work-up and possible cardiology, vascular surgery consultation. 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 - Non-pressure chronic ulcer of other part of right foot with necrosis of muscle Referrals: PCP,None [Primary Care Provider] - Forms: ED Department Discharge Sepsis Event Note (ED) - Evaluation Sepsis Screening Result: No Definite Risk - Focused Exam Vital Signs: Vital Signs Temp Pulse Resp Pulse Ox 06/20/20 08:02 37.1 C 103 H 26 H 96 06/20/20 08:00 37.1 C 103 H 26 H 96 - My Orders Last 24 Hours: My Active Orders 06/20/20 08:12 UA W/MICROSCOPIC [URIN] Stat 06/20/20 08:17 Chest 1V Frontal [CR] Stat 06/20/20 08:18 EKG Documentation Completion [RC] ASDIRECTED EKG 12 Lead [EK] Routine 06/20/20 09:25 TROPONIN I [CHEM] Stat 06/20/20 09:45 Piperacillin/Tazobactam/Dext [Zosyn in Dextrose Iso-Osmotic] 4.5 gm Premix Bag 1 bag IV ONETIME - Assessment/Plan Last 24 Hours: My Active Orders 06/20/20 08:12 UA W/MICROSCOPIC [URIN] Stat 06/20/20 08:17 Chest 1V Frontal [CR] Stat 06/20/20 08:18 EKG Documentation Completion [RC] ASDIRECTED EKG 12 Lead [EK] Routine 06/20/20 09:25 TROPONIN I [CHEM] Stat 06/20/20 09:45 Piperacillin/Tazobactam/Dext [Zosyn in Dextrose Iso-Osmotic] 4.5 gm Premix Bag 1 bag IV ONETIME
[2020-06-20] MEDS ORDERED: Piperacillin/Tazobactam 4.5 GM in Sodium Chloride 0.9% 100 ML IV ONE (09:05)
[2020-06-20] MEDS ORDERED: Piperacillin/Tazobactam/Dext 4.5 GM in Premix Bag 1 BAG IV ONE (09:45)
--- NOTE | 2020-06-20 09:46 | CR ---
CHEST: Portable 06/20/2020 at 9:19 AM CLINICAL HISTORY:SOB COMPARISON:03/28/2020 FINDINGS: Heart is enlarged. Pulmonary vascular is normal. There are atherosclerotic changes in the aorta. Patient has diffuse calcified pleural plaque seen on prior studies. Impression: Diffuse calcified pleural plaque Mild cardiomegaly with normal pulmonary vascularity
[2020-06-20 09:47] VITALS: BP 129/56
[2020-06-20 09:49] VITALS: PULSE 104
[2020-06-20] MEDS ORDERED: Acetaminophen 325 MG Tab PO ONE (10:41)
== END 2020-06-20 11:09 ==
LOC: JP.ED 07:50
DX: E11.621 Type 2 diabetes mellitus with foot ulcer (principal); L97.513 Non-pressure chronic ulcer of other part of right foot with necrosis of muscle; I48.91 Unspecified atrial fibrillation; I11.0 Hypertensive heart disease with heart failure; I50.9 Heart failure, unspecified; F41.9 Anxiety disorder, unspecified; Z88.5 Allergy status to narcotic agent; Z79.4 Long term (current) use of insulin; Z79.82 Long term (current) use of aspirin; Z90.49 Acquired absence of other specified parts of digestive tract; Z87.891 Personal history of nicotine dependence; Z79.899 Other long term (current) drug therapy
CPT/HCPCS: 36415; 71045; 80053; 83880; 84484; 85027; 93005; 96365; 99285; A9270; J2543

== ENCOUNTER 2020-06-30 13:18 | Emergency (ER) | payer MEDICARE, OTHER ==
[2020-06-30 13:42] VITALS: BP 103/34; PULSE 66
[2020-06-30] MEDS ORDERED: cefTRIAXone 2 GM in Sodium Chloride 0.9% 50 ML IV ONE ×2 (14:52→15:00)
--- NOTE | 2020-06-30 15:08 | EDM.PDOC ---
ED HPI GENERAL MEDICAL PROBLEM - General Chief Complaint: Lower Extremity Injury/Pain Stated Complaint: DIABETIC SORES ON R FOOT Time Seen by Provider: 06/30/20 13:55 Source of Information: Reports: Patient, Family, RN History Limitations: Reports: No Limitations - History of Present Illness INITIAL COMMENTS - FREE TEXT/NARRATIVE: 84-year-old male who is getting IV antibiotics once daily for foot cellulitis and osteomyelitis was sent in by his home health nurse because he does not seem to be responding to treatment she thinks the lesions look worse. He feels fine, he is not febrile. He was in the hospital for 5 consecutive days prior to being discharged for outpatient IV antibiotics. He is scheduled for 2 g of Rocephin in 1 hour at the infusion center. - Related Data Allergies Allergy/AdvReac Type Severity Reaction Status Date / Time codeine Allergy Anxiety Verified 06/30/20 13:43 Home Meds: Home Meds Cholecalciferol (Vitamin D3) [Vitamin D3] 1,000 units PO DAILY 05/04/17 [History] Multivitamin [Multivitamins] 1 mg PO DAILY 05/04/17 [History] Pramoxine HCl/Menthol [[place] Med Anti-Itch] 2 gm TOP ASDIRECTED PRN 05/04/17 [History] metFORMIN [Glucophage] 1,000 mg PO BID 05/04/17 [History] Aspirin [Halfprin] 81 mg PO DAILY 12/03/19 [History] Ferrous Sulfate [Ferosul] 325 mg PO DAILY 12/03/19 [History] Insulin Glarg,Human.Rec.Analog [Lantus Solostar] 30 units SUBCUT BEDTIME #4 pen 12/07/19 [Rx] Tamsulosin [Flomax] 0.4 mg PO PCBREAKFAST #14 cap.er 12/07/19 [Rx] Ezetimibe 10 mg PO DAILY 03/28/20 [History] Triamcinolone Acetonide [Triamcinolone Acetonide 0.1% Crm] 1 applic .XX BID 03/28/20 [History] Diltiazem [Cardizem CD] 120 mg PO DAILY #30 cap.cd 04/01/20 [Rx] Furosemide 40 mg PO DAILY #90 tablet 04/01/20 [Rx] Digoxin [Lanoxin] 125 mcg PO DAILY 06/20/20 [History] Metoprolol Tartrate 50 mg PO BID 06/20/20 [History] Minocycline [Minocin] 100 mg PO BID 06/20/20 [History] Niacin 500 mg PO TID 06/20/20 [History] Insulin Aspart [Insulin Aspart Flexpen] 5 unit SQ TID 06/30/20 [History] Levothyroxine 150 mcg PO ACBREAKFAST 06/30/20 [History] cefTRIAXone [Rocephin] 2 gm IV 1500 06/30/20 [History] predniSONE [Prednisone] 15 mg PO DAILY 06/30/20 [History] Past Medical History HEENT History: Reports: Hard of Hearing, Impaired Vision Cardiovascular History: Reports: Afib, Heart Failure, Hypertension Respiratory History: Reports: Other (See Below) Other Respiratory History: asbestosis Gastrointestinal History: Reports: Other (See Below) Other Gastrointestinal History: hiatal hernia Musculoskeletal History: Reports: Back Pain, Chronic Psychiatric History: Reports: Anxiety Endocrine/Metabolic History: Reports: Diabetes, Type II Hematologic History: Reports: Blood Transfusion(s), Other (See Below) 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 Immunologic History: Reports: None Oncologic (Cancer) History: Reports: None Dermatologic History: Reports: Other (See Below) Other Dermatologic History: bullosis - Infectious Disease History Infectious Disease History: Reports: Chicken Pox - Past Surgical History HEENT Surgical History: Reports: Cataract Surgery Cardiovascular Surgical History: Reports: None Respiratory Surgical History: Reports: None GI Surgical History: Reports: Appendectomy, Cholecystectomy Endocrine Surgical History: Reports: None Musculoskeletal Surgical History: Reports: Knee Replacement, Shoulder Surgery, Other (See Below) Other Musculoskeletal Surgeries/Procedures:: 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 Dermatological Surgical History: Reports: None Social & Family History - Family History Family Medical History: Noncontributory Neurological: Reports: CVA - Tobacco Use Smoking Status *Q: Never Smoker - Caffeine Use Caffeine Use: Reports: Coffee - Recreational Drug Use Recreational Drug Use: No Review of Systems - Review of Systems Review Of Systems: See Below Constitutional: Denies: Fever Respiratory: Denies: Shortness of Breath Cardiovascular: Denies: Chest Pain Skin: Reports: Erythema, Other (Worsening erythema, dark discoloration of areas of the right foot.) Neurological: Reports: Other (Significant peripheral neuropathy and lack of sensation to the feet bilaterally) ED EXAM, GENERAL - Physical Exam Exam: See Below Exam Limited By: No Limitations General Appearance: Alert, No Apparent Distress Respiratory/Chest: No Respiratory Distress Cardiovascular: Regular Rate, Rhythm Extremities: Other (Partial left foot amputation, the right foot has significant ulcerations on the medial aspect of the foot with a small amount of extension of necrotic tissue on the distal aspect of the ulceration on the medial large toe. There is also new ischemic changes and increased erythema between the large and second toe according to the nursing staff. Capillary refill is intact. No active drainage.) Neurological: Alert, Oriented Course - Vital Signs Last Recorded V/S: Last Vital Signs Temp 97.9 F 06/30/20 13:40 Pulse 66 06/30/20 13:40 Resp 16 06/30/20 13:40 BP 103/34 L 06/30/20 13:40 Pulse Ox 100 06/30/20 13:40 - Orders/Labs/Meds Meds: Medications Discontinued Medications Generic Name Dose Route Start Last Admin Trade Name Freq PRN Reason Stop Dose Admin Ceftriaxone Sodium 2 gm/ 50 mls @ 100 mls/hr 06/30/20 15:00 06/30/20 15:16 Sodium Chloride IV 06/30/20 15:29 100 mls/hr ONETIME ONE Administration - Re-Assessments/Exams Free Text/Narrative Re-Assessment/Exam: 06/30/20 17:31 Patient will continue 2 g of Rocephin daily through the , daily assessment by nursing and a wound care nurse will take a look on Friday. No need for transfer at this time. They can return to the emergency room if he develops a fever, unstable vital signs or vomiting. Departure - Departure Time of Disposition: 16:12 Disposition: Home, Self-Care 01 Clinical Impression: Cellulitis in diabetic foot - Discharge Information Instructions: Diabetes Mellitus and Foot Care Referrals: Katerine Richardson MD [Primary Care Provider] - Forms: ED Department Discharge Care Plan Goals: Continue with current treatment plan, recheck by wound nurse on Friday and continue with daily dressing changes with nursing. Return anytime if worsening such as fever or concerns of sepsis, persistent nausea or vomiting or significant change in mentation. Sepsis Event Note (ED) - Evaluation Sepsis Screening Result: No Definite Risk - Focused Exam Vital Signs: Vital Signs Temp Pulse Resp BP Pulse Ox 06/30/20 13:40 97.9 F 66 16 103/34 L 100
== END 2020-06-30 16:13 | disposition home or self-care (01) ==
LOC: JP.ED 13:18
DX: E11.628 Type 2 diabetes mellitus with other skin complications (principal); L03.115 Cellulitis of right lower limb; E11.621 Type 2 diabetes mellitus with foot ulcer; L97.513 Non-pressure chronic ulcer of other part of right foot with necrosis of muscle; E11.42 Type 2 diabetes mellitus with diabetic polyneuropathy; E11.69 Type 2 diabetes mellitus with other specified complication; M86.9 Osteomyelitis, unspecified; I11.0 Hypertensive heart disease with heart failure; I50.9 Heart failure, unspecified; I48.91 Unspecified atrial fibrillation; Z79.4 Long term (current) use of insulin; Z79.82 Long term (current) use of aspirin; Z79.2 Long term (current) use of antibiotics; Z79.83 Long term (current) use of bisphosphonates; Z88.5 Allergy status to narcotic agent; Z79.899 Other long term (current) drug therapy; Z89.432 Acquired absence of left foot
CPT/HCPCS: 96365; 99283; J0696; J7050

== ENCOUNTER 2020-07-09 12:32 | Emergency (ER) | payer MEDICARE, OTHER ==
--- NOTE | 2020-07-09 12:54 | EDM.PDOC ---
ED HPI GENERAL MEDICAL PROBLEM - General Chief Complaint: General Stated Complaint: MED[facility] Time Seen by Provider: 07/09/20 12:40 Source of Information: Reports: Patient, Family, RN Notes Reviewed History Limitations: Reports: Altered Mental Status, Other (Confusion) - History of Present Illness INITIAL COMMENTS - FREE TEXT/NARRATIVE: Catracho presents today for complaints of low blood sugar at home of 36 confusion, right sided weakness with unknown time of onset. Patient is currently receiving ceftriaxone IV via PICC line for bilateral wound infections of feet. Left partial foot amputation. He denies fever, chills, nausea, vomiting or other concerns. GCS 14 - confusion to date, day, time. Alert to self. denies Pain Score (Numeric/FACES): 0 - Related Data Allergies Allergy/AdvReac Type Severity Reaction Status Date / Time codeine Allergy Anxiety Verified 07/09/20 12:51 Home Meds: Home Meds Cholecalciferol (Vitamin D3) [Vitamin D3] 1,000 units PO DAILY 05/04/17 [History] Multivitamin [Multivitamins] 1 mg PO DAILY 05/04/17 [History] metFORMIN [Glucophage] 1,000 mg PO BID 05/04/17 [History] Aspirin [Halfprin] 81 mg PO DAILY 12/03/19 [History] Ferrous Sulfate [Ferosul] 325 mg PO DAILY 12/03/19 [History] Tamsulosin [Flomax] 0.4 mg PO PCBREAKFAST #14 cap.er 12/07/19 [Rx] Ezetimibe 10 mg PO DAILY 03/28/20 [History] Diltiazem [Cardizem CD] 120 mg PO DAILY #30 cap.cd 04/01/20 [Rx] Furosemide 40 mg PO DAILY #90 tablet 04/01/20 [Rx] Digoxin [Lanoxin] 125 mcg PO DAILY 06/20/20 [History] Metoprolol Tartrate 50 mg PO BID 06/20/20 [History] Niacin 500 mg PO TID 06/20/20 [History] Levothyroxine 150 mcg PO ACBREAKFAST 06/30/20 [History] cefTRIAXone [Rocephin] 2 gm IV 1500 06/30/20 [History] predniSONE [Prednisone] 15 mg PO DAILY 06/30/20 [History] Insulin Glarg,Human.Rec.Analog [Lantus Solostar] 22 units SUBCUT BEDTIME 07/09/20 [History] Past Medical History HEENT History: Reports: Hard of Hearing, Impaired Vision Cardiovascular History: Reports: Afib, Heart Failure, Hypertension Respiratory History: Reports: Other (See Below) Other Respiratory History: asbestosis Gastrointestinal History: Reports: Other (See Below) Other Gastrointestinal History: hiatal hernia Musculoskeletal History: Reports: Back Pain, Chronic Psychiatric History: Reports: Anxiety Endocrine/Metabolic History: Reports: Diabetes, Type II Hematologic History: Reports: Blood Transfusion(s), Other (See Below) 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 Immunologic History: Reports: None Oncologic (Cancer) History: Reports: None Dermatologic History: Reports: Other (See Below) Other Dermatologic History: bullosis - Infectious Disease History Infectious Disease History: Reports: Chicken Pox - Past Surgical History HEENT Surgical History: Reports: Cataract Surgery Cardiovascular Surgical History: Reports: None Respiratory Surgical History: Reports: None GI Surgical History: Reports: Appendectomy, Cholecystectomy Endocrine Surgical History: Reports: None Musculoskeletal Surgical History: Reports: Knee Replacement, Shoulder Surgery, Other (See Below) Other Musculoskeletal Surgeries/Procedures:: 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 Dermatological Surgical History: Reports: None Social & Family History - Family History Family Medical History: Noncontributory Neurological: Reports: CVA - Caffeine Use Caffeine Use: Reports: Coffee ED ROS GENERAL - Review of Systems Review Of Systems: See Below Constitutional: Reports: Malaise, Weakness, Other (hypoglycemia) HEENT: Reports: Other ([place]) Respiratory: Reports: No Symptoms Cardiovascular: Reports: Other (hypotension) Endocrine: Reports: No Symptoms GI/Abdominal: Reports: No Symptoms : Reports: No Symptoms Musculoskeletal: Reports: No Symptoms Skin: Reports: Dryness, Pruritis, Wound (chronic wound to bilateral feet, currently receiving IV ceftriaxone 2 gram daily as outpatient. ) Neurological: Reports: Confusion, Difficulty Walking, Weakness, Other (right sided weakness). Denies: Dizziness, Headache, Numbness, Seizure, Syncope, Tingling, Tremors, Trouble Speaking Psychiatric: Reports: Confusion Hematologic/Lymphatic: Reports: No Symptoms Immunologic: Reports: No Symptoms ED EXAM, GENERAL - Physical Exam Exam: See Below Free Text/Narrative:: Catracho is a 84 year old male with confusion to day, time place, situation, month with new onset right sided weakness, hyopglycemia, chronic bilateral feet wounds, daily IV ceftriaxone therapy via PICC line placed 06/25/2020. Exam Limited By: Other (confusion) General Appearance: No Apparent Distress, Lethargic Eye Exam: Bilateral Eye: Normal Inspection, PERRL Ears: Normal External Exam, Hearing Loss Nose: Normal Inspection, Normal Mucosa, No Blood Throat/Mouth: Normal Lips, No Airway Compromise, Other (mucus membranes dry, slight erythema) Head: Atraumatic, Normocephalic Neck: Normal Inspection, Supple, Non-Tender, Full Range of Motion. No: Lymphadenopathy (R), Lymphadenopathy (L) Respiratory/Chest: No Respiratory Distress, No Accessory Muscle Use, Chest Non- Tender, Decreased Breath Sounds. No: Crackles, Rales, Rhonchi, Wheezing Cardiovascular: Normal Peripheral Pulses, Other (Noted murmur, chronic atrial f ib, rate of 50s) Peripheral Pulses: 1+: Dorsalis Pedis (L), Dorsalis Pedis (R), 2+: Radial (L), Radial (R) GI/Abdominal: Normal Bowel Sounds, Soft, No Organomegaly, No Distention, Other (slight tenderness with palpation to RUQ/LUQ) Back Exam: Normal Inspection. No: CVA Tenderness (R), CVA Tenderness (L), Muscle Spasm, Paraspinal Tenderness, Vertebral Tenderness Extremities: Slow Capillary Refill, Limited Range of Motion, Other (bilatearl lower leg edema from feet to knees, 4+, no weeping noted. Left partial foot amputation). No: Increased Warmth Neurological: Inattentive, Confused, Other (Responds to verbal and tactile stimulus.) Psychiatric: Flat Affect Skin Exam: Wound/Incision (bilateral foot wounds, left partial foot amputation. Left partial foot has 3cm x 2.7 wound, no eschar or slough noted. Right great toe 1cm ulceration with slough to lateral toe. right lateral wound with eschar, slight bogginess size of 5cm x 2.8cm, not painful. Right medial foot wound is 9.5cm x 3cm irregular in shape with eschar slight bogginess, no pain. Right heel wound 5cm x 5cm with eschar, black/brown slough, no bone visible. ) Lymphatic: No Adenopathy EKG INTERPRETATION EKG Date: 07/09/20 Time: 13:25 Rhythm: A-Fib Rate (Beats/Min): 65 Comparison: No Change Course - Vital Signs Last Recorded V/S: Last Vital Signs Temp 37.3 C 07/09/20 14:03 Pulse 70 07/09/20 14:55 Resp 28 H 07/09/20 14:55 BP 95/42 L 07/09/20 14:55 Pulse Ox 97 07/09/20 14:55 - Orders/Labs/Meds Orders: Active Orders 24 hr Category Date Time Status EKG Documentation Completion [RC] ASDIRECTED Care 07/09/20 12:50 Active Chest 1V Frontal [CR] Stat Exams 07/09/20 12:48 Taken CULTURE BLOOD [BC] Urgent Lab 07/09/20 13:00 Received CULTURE BLOOD [BC] Urgent Lab 07/09/20 13:08 Received Blood Culture x2 Reflex Set [OM.PC] Urgent Oth 07/09/20 12:56 Ordered EKG 12 Lead [EK] Routine Ther 07/09/20 12:48 Ordered Labs: Laboratory Tests 07/09/20 07/09/20 07/09/20 Range/Units 12:52 13:00 13:00 WBC 4.9 (4.5-11.0) K/uL RBC 3.65 L (4.30-5.90) M/uL Hgb 9.2 L (12.0-15.0) g/dL Hct 31.5 L (40.0-54.0) % MCV 86 (80-98) fL MCH 25 L (27-31) pg MCHC 29 L (32-36) % Plt Count 230 (150-400) K/uL Neut % (Auto) 70 H (36-66) % Lymph % (Auto) 13 L (24-44) % [place] % (Auto) 16 H (2-6) % Eos % (Auto) 0 L (2-4) % Baso % (Auto) 0 (0-1) % ESR 26 H (0-20) mm/hr Sodium 142 (140-148) mmol/L Potassium 5.2 (3.6-5.2) mmol/L Chloride 108 (100-108) mmol/L Carbon Dioxide 26 (21-32) mmol/L Anion Gap 8.4 (5.0-14.0) mmol/L BUN 45 H (7-18) mg/dL Creatinine 2.0 H (0.8-1.3) mg/dL Est Cr Clr Drug Dosing 29.10 mL/min Estimated GFR (MDRD) 32 L (>60) Glucose 91 (74-106) mg/dL POC Glucose (74-106) MG/DL Calcium 8.7 (8.5-10.1) mg/dL Magnesium (1.8-2.4) mg/dL Total Bilirubin 0.3 (0.2-1.0) mg/dL AST 17 (15-37) U/L ALT 21 (12-78) U/L Alkaline Phosphatase 41 L (46-116) U/L C-Reactive Protein 4.68 H (0.0-0.3) mg/dL NT-Pro-B Natriuret Pep (5-450) pg/mL Total Protein 5.4 L (6.4-8.2) g/dL Albumin 2.4 L (3.4-5.0) g/dL Globulin 3.0 (2.3-3.5) g/dL Albumin/Globulin Ratio 0.8 L (1.2-2.2) Procalcitonin ng/mL Urine Color Yellow (YELLOW) Urine Appearance Slightly cloudy A (CLEAR) Urine pH 5.5 (5.0-8.0) Ur Specific [place] 1.020 (1.008-1.030) Urine Protein 30 H (NEGATIVE) mg/dL Urine Glucose (UA) Negative (NEGATIVE) mg/dL Urine Ketones Negative (NEGATIVE) mg/dL Urine Occult Blood Negative (NEGATIVE) Urine Nitrite Negative (NEGATIVE) Urine Bilirubin Negative (NEGATIVE) Urine Urobilinogen 0.2 (0.2-1.0) EU/dL Ur Leukocyte Esterase Negative (NEGATIVE) Urine RBC Not seen (0-5) Urine WBC 0-5 (0-5) Ur Epithelial Cells Few Amorphous Sediment Rare Urine Bacteria Not seen Urine Mucus Not seen Digoxin 2.48 H (0.90-2.00) ng/mL 07/09/20 07/09/20 07/09/20 Range/Units 13:00 13:00 13:48 WBC (4.5-11.0) K/uL RBC (4.30-5.90) M/uL Hgb (12.0-15.0) g/dL Hct (40.0-54.0) % MCV (80-98) fL MCH (27-31) pg MCHC (32-36) % Plt Count (150-400) K/uL Neut % (Auto) (36-66) % Lymph % (Auto) (24-44) % [place] % (Auto) (2-6) % Eos % (Auto) (2-4) % Baso % (Auto) (0-1) % ESR (0-20) mm/hr Sodium (140-148) mmol/L Potassium (3.6-5.2) mmol/L Chloride (100-108) mmol/L Carbon Dioxide (21-32) mmol/L Anion Gap (5.0-14.0) mmol/L BUN (7-18) mg/dL Creatinine (0.8-1.3) mg/dL Est Cr Clr Drug Dosing mL/min Estimated GFR (MDRD) (>60) Glucose (74-106) mg/dL POC Glucose (74-106) MG/DL Calcium (8.5-10.1) mg/dL Magnesium 1.8 (1.8-2.4) mg/dL Total Bilirubin (0.2-1.0) mg/dL AST (15-37) U/L ALT (12-78) U/L Alkaline Phosphatase (46-116) U/L C-Reactive Protein (0.0-0.3) mg/dL NT-Pro-B Natriuret Pep 6204 H (5-450) pg/mL Total Protein (6.4-8.2) g/dL Albumin (3.4-5.0) g/dL Globulin (2.3-3.5) g/dL Albumin/Globulin Ratio (1.2-2.2) Procalcitonin 0.15 ng/mL Urine Color (YELLOW) Urine Appearance (CLEAR) Urine pH (5.0-8.0) Ur Specific [place] (1.008-1.030) Urine Protein (NEGATIVE) mg/dL Urine Glucose (UA) (NEGATIVE) mg/dL Urine Ketones (NEGATIVE) mg/dL Urine Occult Blood (NEGATIVE) Urine Nitrite (NEGATIVE) Urine Bilirubin (NEGATIVE) Urine Urobilinogen (0.2-1.0) EU/dL Ur Leukocyte Esterase (NEGATIVE) Urine RBC (0-5) Urine WBC (0-5) Ur Epithelial Cells Amorphous Sediment Urine Bacteria Urine Mucus Digoxin (0.90-2.00) ng/mL 07/09/20 Range/Units 14:23 WBC (4.5-11.0) K/uL RBC (4.30-5.90) M/uL Hgb (12.0-15.0) g/dL Hct (40.0-54.0) % MCV (80-98) fL MCH (27-31) pg MCHC (32-36) % Plt Count (150-400) K/uL Neut % (Auto) (36-66) % Lymph % (Auto) (24-44) % [place] % (Auto) (2-6) % Eos % (Auto) (2-4) % Baso % (Auto) (0-1) % ESR (0-20) mm/hr Sodium (140-148) mmol/L Potassium (3.6-5.2) mmol/L Chloride (100-108) mmol/L Carbon Dioxide (21-32) mmol/L Anion Gap (5.0-14.0) mmol/L BUN (7-18) mg/dL Creatinine (0.8-1.3) mg/dL Est Cr Clr Drug Dosing mL/min Estimated GFR (MDRD) (>60) Glucose (74-106) mg/dL POC Glucose 100 (74-106) MG/DL Calcium (8.5-10.1) mg/dL Magnesium (1.8-2.4) mg/dL Total Bilirubin (0.2-1.0) mg/dL AST (15-37) U/L ALT (12-78) U/L Alkaline Phosphatase (46-116) U/L C-Reactive Protein (0.0-0.3) mg/dL NT-Pro-B Natriuret Pep (5-450) pg/mL Total Protein (6.4-8.2) g/dL Albumin (3.4-5.0) g/dL Globulin (2.3-3.5) g/dL Albumin/Globulin Ratio (1.2-2.2) Procalcitonin ng/mL Urine Color (YELLOW) Urine Appearance (CLEAR) Urine pH (5.0-8.0) Ur Specific [place] (1.008-1.030) Urine Protein (NEGATIVE) mg/dL Urine Glucose (UA) (NEGATIVE) mg/dL Urine Ketones (NEGATIVE) mg/dL Urine Occult Blood (NEGATIVE) Urine Nitrite (NEGATIVE) Urine Bilirubin (NEGATIVE) Urine Urobilinogen (0.2-1.0) EU/dL Ur Leukocyte Esterase (NEGATIVE) Urine RBC (0-5) Urine WBC (0-5) Ur Epithelial Cells Amorphous Sediment Urine Bacteria Urine Mucus Digoxin (0.90-2.00) ng/mL Patient lab work, EKG, head CT, chest x-ray and most recent lab work reviewed with Dr. Vargas. No acute change in chronic state with CHF, CKD, Chronic wounds. No acute findings for admission at this time. Patient will keep his wound care appointment as scheduled tomorrow. Decrease long acting insulin tonight to 15 units subcutaneous. Continue to monitor blood glucose as directed. Continue chronic medications as ordered per primary. Dressing change to bilateral feet in emergency room. Administration of IV ceftriaxone as scheduled. Patient, his and daughter in agreement with plan. Meds: Medications Discontinued Medications Generic Name Dose Route Start Last Admin Trade Name Freq PRN Reason Stop Dose Admin Ceftriaxone Sodium 2 gm/ 50 mls @ 100 mls/hr 07/09/20 14:17 07/09/20 14:25 Sodium Chloride IV 07/09/20 14:46 100 mls/hr ONETIME ONE Administration - Radiology Interpretation Free Text/Narrative:: Head CT without contrast shows no acute findings. Chest x-ray reviewed, wet read, shows no acute findings, chronic CHF. - Re-Assessments/Exams Free Text/Narrative Re-Assessment/Exam: 07/09/20 14:25 Patient alert, answers questions appropriately. He states he does not want to be in a Skilled Nursing to have care. GCS 15 NIH 0 07/09/20 14:40 Glucose POC 100 We will provide patient with sandwich and soup to eat. GCS 15 NIH 0 Confusion resolved, Catracho ate lunch in the emergency without difficulty. He was up with assistance and discharged to home. Patient family advised to seek additional care/usp care. Departure - Departure Time of Disposition: 14:45 Disposition: Home, Self-Care 01 Condition: Fair Clinical Impression: Hypoglycemia associated with type 2 diabetes mellitus, Chronic wound of extremity, Chronic CHF, CKD (chronic kidney disease), Chronic atrial fibrillation, Chronic hypotension, Chronic anemia - Discharge Information Instructions: Hypotension, [id number], Hypoglycemia, Wound Infection, [id number] Referrals: PCP,None [Primary Care Provider] - Forms: ED Department Discharge Additional Instructions: Catracho has been evaluated and treated for low blood sugar and chronic wounds of both feet. Keep wound care appointment tomorrow as scheduled. Decrease long acting insulin to 15 units at bedtime. Check blood sugar tonight prior to administration. If blood sugar is <60, do not give long acting insulin. Follow up with primary in the next 3 days for a recheck. Return to the emergency room for any worsening, issues or concerns. Sepsis Event Note (ED) - Evaluation Sepsis Screening Result: No Definite Risk - Focused Exam Vital Signs: Vital Signs Temp Pulse Resp BP Pulse Ox 07/09/20 14:55 70 28 H 95/42 L 97 07/09/20 14:25 71 19 87/42 L 98 07/09/20 14:03 37.3 C 68 22 H 92/37 L 96 07/09/20 13:25 58 L 25 H 98/37 L 98 07/09/20 13:02 75 25 H 89/38 L 98 07/09/20 12:45 37.3 C 72 26 H 79/46 L 96 07/09/20 12:33 37.3 C 72 26 H 79/46 L 96 - My Orders Last 24 Hours: My Active Orders 07/09/20 12:48 Chest 1V Frontal [CR] Stat EKG 12 Lead [EK] Routine 07/09/20 12:50 EKG Documentation Completion [RC] ASDIRECTED 07/09/20 12:56 Blood Culture x2 Reflex Set [OM.PC] Urgent 07/09/20 13:00 CULTURE BLOOD [BC] Urgent 07/09/20 13:08 CULTURE BLOOD [BC] Urgent - Assessment/Plan Last 24 Hours: My Active Orders 07/09/20 12:48 Chest 1V Frontal [CR] Stat EKG 12 Lead [EK] Routine 07/09/20 12:50 EKG Documentation Completion [RC] ASDIRECTED 07/09/20 12:56 Blood Culture x2 Reflex Set [OM.PC] Urgent 07/09/20 13:00 CULTURE BLOOD [BC] Urgent 07/09/20 13:08 CULTURE BLOOD [BC] Urgent Assessment:: Hypoglycemia associated with type 2 diabetes mellitus, Chronic wound of extremity, Chronic CHF, CKD (chronic kidney disease), Chronic atrial fibrillation, Chronic Hypotension, Chronic anemia Plan: Patient has been evaluated and treated for low blood sugar and chronic wounds of both feet. He and his family decline discussion or placement of usp care today. Patient blood glucose stable, wound care completed. Keep wound care appointment tomorrow as scheduled. Decrease long acting insulin to 15 units at bedtime. Check blood sugar tonight prior to administration. If blood sugar is <60, do not give long acting insulin. Follow up with primary in the next 3 days for a recheck. Return to the emergency room for any worsening, issues or concerns.
--- NOTE | 2020-07-09 13:54 | CRLCT ---
INDICATION: Right-sided weakness. Confusion. TECHNIQUE: Noncontrast head CT. COMPARISON: No prior. FINDINGS: Mild generalized cerebral and cerebellar volume loss. Areas of white matter low attenuation which are nonspecific but likely reflect sequelae of chronic small vessel ischemic changes. No acute ischemic infarct or acute intracranial hemorrhage. No mass effect or midline shift. Mild prominence of the ventricular system likely relates to central white matter volume loss. Mastoid air cells are clear. Paranasal sinuses are clear. No acute skull fracture. IMPRESSION: 1. No acute intracranial disease. 2. Mild generalized cerebral and cerebellar chronic volume loss. 3. Areas of white matter low attenuation which are nonspecific but likely reflect sequelae of chronic small vessel ischemic changes. Dictated by Dom Myers MD @ 07/09/2020 1:52:30 PM Please note that all CT scans at this facility use dose modulation, iterative reconstruction, and/or weight-based dosing when appropriate to reduce radiation dose to as low as reasonably achievable. Dictated by: Dom Myers MD @ 07/09/2020 13:52:55 (Electronically Signed)
[2020-07-09] MEDS ORDERED: cefTRIAXone 2 GM in Sodium Chloride 0.9% 50 ML IV ONE (14:17)
[2020-07-09 15:18] VITALS: BP 95/42; PULSE 70
--- NOTE | 2020-07-10 09:44 | CR ---
CHEST: Portable 07/09/2020 1:28 PM CLINICAL HISTORY:Confusion COMPARISON:06/20/2020 FINDINGS: Heart is mildly enlarged. Pulmonary vascularity is mildly cephalized. This may be chronic. There is some patchy density bilaterally. Most of this appears to be calcified pleural plaque and some chronic interstitial changes. Small right lower lobe infiltrate is not excluded. Impression: Mild cardiomegaly Calcified pleural plaquing chronic interstitial changes due to previous asbestos exposure Small patchy superimposed right lower lobe pneumonic infiltrate is not excluded. If relevant, short-term follow-up may be helpful
== END 2020-07-09 15:37 | disposition home or self-care (01) ==
LOC: JP.ED 12:32
DX: E11.649 Type 2 diabetes mellitus with hypoglycemia without coma (principal); E11.621 Type 2 diabetes mellitus with foot ulcer; L97.519 Non-pressure chronic ulcer of other part of right foot with unspecified severity; I13.0 Hypertensive heart and chronic kidney disease with heart failure and stage 1 through stage 4 chronic kidney disease, or unspecified chronic kidney disease; E11.22 Type 2 diabetes mellitus with diabetic chronic kidney disease; I50.9 Heart failure, unspecified; N18.9 Chronic kidney disease, unspecified; I48.20 Chronic atrial fibrillation, unspecified; I95.89 Other hypotension; D64.9 Anemia, unspecified; Z88.5 Allergy status to narcotic agent; Z79.4 Long term (current) use of insulin; Z79.82 Long term (current) use of aspirin; Z79.899 Other long term (current) drug therapy; Z89.422 Acquired absence of other left toe(s)
CPT/HCPCS: 36415; 70450; 71045; 80053; 80162; 81001; 82962; 83735; 83880; 84145; 85025; 85651; 86140; 87040; 93005; 93010; 96365; 99285; J0696; J7050; 99284